=== PATIENT | female | born 1970 | race Caucasian/White ===

== ENCOUNTER → 2019-12-03 11:26 | Outpatient (BNVA) | payer MEDICAID, SELFPAY | PROVIDERS: Family Provider Family Medicine; Visit Provider Family Medicine | DX: R61 Generalized hyperhidrosis (principal); R05 Cough; M54.9 Dorsalgia, unspecified; J32.9 Chronic sinusitis, unspecified | CPT/HCPCS: 80053; 85025; 85651; 86140 ==

== ENCOUNTER 2019-12-04 15:24 | Outpatient (CLI) | payer MEDICAID, SELFPAY ==
--- NOTE | 2019-12-04 15:56 | XR_ITS ---
WS: [id number] CHEST, 1 view. HISTORY: hemoptysis COMPARISON: 05/23/2017 Lungs are clear and well expanded. No pleural effusion or pneumothorax. Cardiac size: Normal. Mediastinum/Aorta: Normal mediastinum. No osseous abnormality seen. XR/XR chest 1V [id number] IMPRESSION: Unremarkable chest.
== END 2019-12-04 15:25 | disposition home or self-care (01) ==
LOC: RADWPI 15:26
PROVIDERS: Family Provider Family Medicine; PCP Family Medicine; Visit Provider Family Medicine
DX: R04.2 Hemoptysis (principal)
CPT/HCPCS: 71045

== ENCOUNTER 2019-12-08 00:21 | Emergency (ER) | payer MEDICAID, SELFPAY ==
[2019-12-08] VITALS (21 sets, daily range): BP systolic 141; BP diastolic 92; PULSE 63; RESP 16; TEMP 36.4; O2SAT 94–99; BMI 27.8
--- NOTE | 2019-12-08 00:50 | PC.NURSE ---
Introduced self to patient and initiated vital signs. Patient presents A&O x 4. NAD, ABCs intact, MAEW and agreeable to treatment. Respirations are even and unlabored. Pt states medications taken before coming to ER was nitroglycerine. Pt states that the chief complaint for the ER visit today is due to chest pain and pressure. Pt took 1 nitro pill earlier with 1 hour of relief. Pt has 2 stents and history of cardiac issues. Pt denies any vision disturbances or lightheadedness. Bed left in lowest position in semi-fowlers with side rails up. Reassured patient of needs and will continue to monitor. Awaiting provider at bedside.
--- NOTE | 2019-12-08 00:58 | XRR_ITS ---
PROCEDURE INFORMATION: Exam: XR Chest, 1 View Exam date and time: 12/08/2019 12:59 AM Age: 49 years old Clinical indication: Chest pain; Patient HX: C/O central cp radiating to lue TECHNIQUE: Imaging protocol: XR of the chest Views: 1 view. COMPARISON: DC XR chest 1V [id number] 12/04/2019 4:02 PM FINDINGS: Lungs: Lungs are clear bilaterally. Pleural space: No pleural effusion. No pneumothorax. Heart/Mediastinum: Stable moderate enlargement of the cardiac silhouette. Mediastinal contours are unremarkable. Bones/joints: Stable changes consistent with previous cervical spine fusion. XR/XR chest 1V portable [id number] IMPRESSION: 1. No acute cardiopulmonary process. 2. Incidental/nonacute findings are listed in the report.
--- NOTE | 2019-12-08 00:59 | ED_ITS ---
HPI - Chest Pain General: Chief Complaint: Chest Pain Stated Complaint: CP Time Seen by Provider: 12/08/19 00:55 History of Present Illness: HPI narrative: Patient states that today she took a bath and laid down in bed and just a few minutes later she had pain in the center of her chest rating up into her neck and down her left arm. She took a nitro has not really had any relief from that. She said also hurts worse when she takes a deep breath. But the pain is constant. Denies any shortness of breath does have a cough today. has a history of 2 stents. MD complaint: chest pain and chest discomfort Pertinent past history: coronary artery disease Onset (ago): hour(s) Timing of current episode: constant Prior episodes: Yes Onset: during rest Pain location: left chest Pain radiation: left arm and neck Severity: moderate Quality: tightness, aching and sharp Relieving factors: nothing Exacerbating factors: nothing Associated symptoms: Reports no associated symptoms; Deny abdominal pain, dyspnea, fever(s), nausea or vomiting Review of Systems Const: Denies: fever, chills or body aches Eyes: Denies: change in vision or blurry vision ENMT: Denies: throat pain or nasal congestion Card: Reports: chest pain; Denies: shortness of breath on exertion Resp: Reports: non-productive cough; Denies: shortness of breath or productive cough GI: Denies: abdominal pain, nausea or vomiting Musc: Denies: extremity pain Skin/Breast: Denies: rash Neuro: Denies: headache Psych: Denies: anxiety or depression Kayode/Lymph: Denies: easy bruising PFSH ED PFSH: Social History Smoking and tobacco status: current every day smoker Alcohol intake: current Alcohol intake frequency: few times a month Female Reproductive History: Date of last menstrual period: 08/24/19 Physical Exam Const: COMMON NORMALS: no apparent distress, average body habitus and oriented x3 HENMT: COMMON NORMALS: normocephalic HEAD & SCALP: normal to inspection and normocephalic FACE & SINUS: normal facial exam Eye: COMMON NORMALS: conjunctivae normal GENERAL EYE: normal appearance of both eyes CONJUNCTIVA: Yes conjunctivae normal Neck/C-Spine: COMMON NORMALS: no JVD Chest: COMMONS NORMALS: inspection of chest normal CHEST: Yes localized rib tenderness with anteroposterior compression Resp: COMMON NORMALS: normal respiratory effort and clear to auscultation bilaterally AUSCULTATION: clear to auscultation bilaterally Cardio: COMMON NORMALS: no JVD, regular rate and regular rhythm RATE: regular rate RHYTHM: regular rhythm GI: COMMON NORMALS: normal to inspection, nondistended, normoactive bowel sounds Extremity: COMMON NORMALS: normal to inspection and full ROM Neuro: COMMON NORMALS: oriented x3 Course Vital Signs: Vital signs: Vital Signs Temperature 97.6 F 12/08/19 00:34 Pulse Rate 63 12/08/19 00:34 Respiratory Rate 16 12/08/19 00:34 Blood Pressure 141/92 12/08/19 00:34 Pulse Oximetry 98 12/08/19 00:34 MDM - Chest Pain MDM Narrative: Medical decision making narrative: Heart score 3 which shows risk of Mace of 0.9 to 1.7%. I discussed case with Dr. Ferrer areas of patient is not wanting to stay for the test troponins 2 hours with a heart score be in what it is with her past history that she is good to go home. Patient is been made aware what the 2-hour troponin test helps us decide patient says that the Toradol shot has helped she feels better now no longer has pain and does want to go home does not want to stay for another test and wait on the results. Patient was informed that if chest pain returns or worsens she is to call ambulance or return here ANA M. Lab Data: Labs: Lab Results 12/08/19 12/08/19 12/08/19 Range/Units 00:58 00:58 00:58 WBC 9.5 (4.0-10.0) 10^3/ uL RBC 4.68 (4.1-5.3) 10^6/u L Hgb 13.6 (11.5-15.3) g/dL Hct 41.9 (37.0-47.0) % MCV 89.5 (81-99) fL MCH 29.1 (28.0-34.0) pg MCHC 32.5 (30.0-36.0) g/dL RDW 14.5 (12.1-15.1) % Plt Count 316 (130-400) 10^3/c mm MPV 9.7 (7.4-10.4) fL Neut % (Auto) 55.9 % Lymph % (Auto) 35.4 % [place] % (Auto) 6.3 % Eos % (Auto) 1.3 % Baso % (Auto) 0.7 % Neut # (Auto) 5.3 (1.8-7.7) 10^3/u L Lymph # (Auto) 3.4 (0.8-4.8) 10^3/u L [place] # (Auto) 0.6 (0.2-0.9) 10^3/u L Eos # (Auto) 0.1 (0.0-0.8) 10^3/u L Baso # (Auto) 0.1 (0.0-0.1) 10^3/u L Nucleated RBC % (a uto) 0 % Nucleated RBCs # 0.0 /100WBC Sodium 144 (136-145) mmol/L Potassium 3.7 (3.5-5.1) mmol/L Chloride 104 (98-107) mmol/L Carbon Dioxide 31 H (22-29) mmol/L Anion Gap 12.7 (5-19) BUN 18 (6-20) mg/dL Creatinine 0.7 (0.5-0.9) mg/dL GFR Calculation 88.2 L (90-130) mL/min Glucose 110 (65-115) mg/dL Calculated Osmolal ity 295 (285-295) mOsm/k g Calcium 9.8 (8.5-10.5) mg/dL Total Bilirubin 0.2 (0.15-1.2) mg/dL AST 30 (0-32) U/L ALT 34 H (0-33) U/L Alkaline Phosphata se 262 H (35-105) IU/L Troponin T Baselin e 6 (0-10) ng/mL Total Protein 6.6 (6.6-8.7) g/dL Albumin 4.1 (3.5-5.2) g/dL Globulin 2.5 (1.3-4.6) g/dL Discharge Plan Discharge Prescriptions: No Action paroxetine HCl [Paxil] 20 mg tablet 20 mg PO .QHS RF: 0 hydroxyzine HCl 25 mg tablet 25 mg PO TID PRNRF: 0 metoclopramide HCl [Reglan] 5 mg tablet 5 mg PO TID PRN (Reason: nausea and vomiting) RF: 0 metoprolol succinate 50 mg tablet extended release 24 hr 50 mg PO DAILY RF: 0 hydrocodone-acetaminophen 10-325 mg tablet 1 tab PO Q6H PRNRF: 0 coenzyme Q10 100 mg capsule 100 mg PO DAILY RF: 0 omeprazole 40 mg capsule,delayed release(DR/EC) 40 mg PO BID RF: 0 nitroglycerin 0.4 mg tablet, sublingual 0.4 mg SUBLINGUAL Q5M PRNRF: 0 lamotrigine [Lamictal] 100 mg tablet 100 mg PO BID RF: 0 montelukast [Singulair] 10 mg tablet 10 mg PO DAILY RF: 0 amlodipine 2.5 mg tablet 2.5 mg PO DAILY RF: 0 lisinopril 10 mg tablet 10 mg PO DAILY RF: 0 topiramate [Topamax] 100 mg tablet 100 mg PO BID RF: 0 baclofen 10 mg tablet 10 mg PO TID RF: 0 doxycycline hyclate 100 mg capsule 100 mg PO BID 7 Days Qty: 14 RF: 0 levocetirizine [Xyzal] 5 mg tablet 5 mg PO DAILY 30 Days Qty: 30 RF: 0 clopidogrel [Plavix] 75 mg tablet 75 mg PO DAILY Qty: 30 RF: 3 pantoprazole 40 mg tablet,delayed release (DR/EC) 40 mg PO DAILY 30 Days Qty: 30 RF: 3 isosorbide mononitrate 60 mg tablet extended release 24 hr 60 mg PO BID Qty: 60 RF: 3 Coding Level of Care Code ED Gang Saw Operator for Chg Fwd Exam Comprehensive
[2019-12-08 01:21] LABS: Basophils # 0.1 10^3/uL (0.0-0.1); Basophils % 0.7 %; Eosinophils # 0.1 10^3/uL (0.0-0.8); Eosinophils % 1.3 %; Hematocrit 41.9 % (37.0-47.0); Hemoglobin 13.6 g/dL (11.5-15.3); Lymphocytes # 3.4 10^3/uL (0.8-4.8); Lymphocytes % 35.4 %; Mean Corpuscular HGB Conc 32.5 g/dL (30.0-36.0); Mean Corpuscular Hemoglobin 29.1 pg (28.0-34.0); Mean Corpuscular Volume 89.5 fL (81-99); Mean Platelet Volume 9.7 fL (7.4-10.4); Monocytes # 0.6 10^3/uL (0.2-0.9); Monocytes % 6.3 %; Neutrophils # 5.3 10^3/uL (1.8-7.7); Neutrophils % 55.9 %; Nucleated Red Blood Cells % 0 %; Platelet Count 316 10^3/cmm (130-400); Red Blood Count 4.68 10^6/uL (4.1-5.3); Red Cell Distribution Width 14.5 % (12.1-15.1); White Blood Count 9.5 10^3/uL (4.0-10.0)
[2019-12-08] MEDS: lidocaine 2% viscous 15 ML, aluminum-mag hydrox-simethicon 30 ML, sucralfate oral liq 1 GM PO (01:26)
[2019-12-08 01:34] LABS: Alanine Aminotransferase 34 U/L (0-33); Albumin Level 4.1 g/dL (3.5-5.2); Alkaline Phosphatase 262 IU/L (35-105); Anion Gap 12.7 (5-19); Aspartate Amino Transferase 30 U/L (0-32); Blood Urea Nitrogen 18 mg/dL (6-20); Calcium 9.8 mg/dL (8.5-10.5); Carbon Dioxide 31 mmol/L (22-29); Chloride 104 mmol/L (98-107); Globulin 2.5 g/dL (1.3-4.6); Glomerular Filtration Rate 88.2 mL/min (90-130); Glucose 110 mg/dL (65-115); Osmolality Calculated 295 mOsm/kg (285-295); Potassium 3.7 mmol/L (3.5-5.1); Sodium 144 mmol/L (136-145); Total Bilirubin 0.2 mg/dL (0.15-1.2); Total Protein 6.6 g/dL (6.6-8.7)
[2019-12-08 01:37] LABS: Troponin(5th) Baseline 6 ng/mL (0-10)
[2019-12-08] MEDS: ondansetron 2 mg/ML SDV 2 mL 4 MG IVP (02:11)
[2019-12-08] MEDS: ketorolac 30 mg/mL INJ IVP (02:11)
== END 2019-12-08 02:48 | disposition home or self-care (01) ==
PROVIDERS: Emergency Provider Nurse Practitioner Family; Family Provider Family Medicine; PCP Family Medicine
DX: R07.9 Chest pain, unspecified (principal); M79.602 Pain in left arm; M54.2 Cervicalgia; I25.10 Atherosclerotic heart disease of native coronary artery without angina pectoris; F17.200 Nicotine dependence, unspecified, uncomplicated; Z95.5 Presence of coronary angioplasty implant and graft
CPT/HCPCS: 12345; 71045; 80053; 84484; 85025; 96374; 96375; 99283; 99284; J1885; J2405

== ENCOUNTER → 2020-01-06 11:09 | Outpatient (BNVA) | payer MEDICAID, SELFPAY | PROVIDERS: Family Provider Family Medicine; PCP Family Medicine; Visit Provider Counselor Professional | DX: F43.12 Post-traumatic stress disorder, chronic (principal) | CPT/HCPCS: 90834 ==

== ENCOUNTER → 2020-01-07 08:27 | Outpatient (BNVA) | payer MEDICAID, SELFPAY | PROVIDERS: Family Provider Family Medicine; PCP Family Medicine; Visit Provider Nurse Practitioner | DX: F43.12 Post-traumatic stress disorder, chronic (principal) | CPT/HCPCS: 99214 ==

== ENCOUNTER → 2020-01-16 08:45 | Outpatient (BNVA) | payer MEDICAID, SELFPAY | PROVIDERS: Family Provider Family Medicine; PCP Family Medicine; Visit Provider Counselor Professional | DX: F43.12 Post-traumatic stress disorder, chronic (principal) | CPT/HCPCS: 90832 ==

== ENCOUNTER → 2020-01-22 08:25 | Outpatient (BNVA) | payer MEDICAID, SELFPAY | PROVIDERS: Family Provider Family Medicine; PCP Family Medicine; Visit Provider Counselor Professional | DX: F43.12 Post-traumatic stress disorder, chronic (principal) | CPT/HCPCS: 90834 ==

== ENCOUNTER → 2020-01-30 08:53 | Outpatient (BNVA) | payer MEDICAID, SELFPAY | PROVIDERS: Family Provider Family Medicine; PCP Family Medicine; Visit Provider Counselor Professional | DX: F43.12 Post-traumatic stress disorder, chronic (principal) | CPT/HCPCS: 90834 ==

== ENCOUNTER → 2020-02-21 07:58 | Outpatient (BNVA) | payer MEDICAID, SELFPAY | PROVIDERS: Family Provider Family Medicine; Visit Provider Counselor Professional | DX: F43.12 Post-traumatic stress disorder, chronic (principal) | CPT/HCPCS: 90834 ==

== ENCOUNTER → 2020-02-25 15:22 | Outpatient (BNVA) | payer MEDICAID, SELFPAY | PROVIDERS: Family Provider Family Medicine; PCP Family Medicine; Visit Provider Internal Medicine Cardiovascular Disease | DX: D69.9 Hemorrhagic condition, unspecified (principal) | CPT/HCPCS: 85025 ==

== ENCOUNTER → 2020-03-03 08:29 | Outpatient (BNVA) | payer MEDICAID, SELFPAY | PROVIDERS: Family Provider Family Medicine; PCP Family Medicine; Visit Provider Counselor Professional | DX: F43.12 Post-traumatic stress disorder, chronic (principal) | CPT/HCPCS: 90834 ==

== ENCOUNTER → 2020-03-04 08:02 | Outpatient (BNVA) | payer MEDICAID, SELFPAY | PROVIDERS: Family Provider Family Medicine; PCP Family Medicine; Visit Provider Nurse Practitioner | DX: Z12.4 Encounter for screening for malignant neoplasm of cervix | CPT/HCPCS: 88175 ==

== ENCOUNTER → 2020-03-17 08:17 | Outpatient (BNVA) | payer MEDICAID, SELFPAY | PROVIDERS: Family Provider Family Medicine; PCP Family Medicine; Visit Provider Counselor Professional | DX: F43.12 Post-traumatic stress disorder, chronic (principal) | CPT/HCPCS: 90834; 81025 ==

== ENCOUNTER → 2020-03-18 07:35 | Outpatient (BNVA) | payer MEDICAID, SELFPAY | PROVIDERS: Family Provider Family Medicine; PCP Family Medicine; Visit Provider Nurse Practitioner | DX: F43.12 Post-traumatic stress disorder, chronic (principal) | CPT/HCPCS: 88305; 99213 ==

== ENCOUNTER → 2020-03-24 08:59 | Outpatient (BNVA) | payer MEDICAID, SELFPAY | PROVIDERS: Family Provider Family Medicine; PCP Family Medicine; Visit Provider Obstetrics & Gynecology | DX: N87.1 Moderate cervical dysplasia (principal) | CPT/HCPCS: 76830 ==

== ENCOUNTER → 2020-04-01 08:45 | Outpatient (BNVA) | payer MEDICAID, SELFPAY | PROVIDERS: Family Provider Family Medicine; PCP Family Medicine; Visit Provider Counselor Professional | DX: F43.12 Post-traumatic stress disorder, chronic (principal) | CPT/HCPCS: 90832 ==

== ENCOUNTER → 2020-04-20 08:13 | Outpatient (BNVA) | payer MEDICAID, SELFPAY | PROVIDERS: Family Provider Family Medicine; PCP Family Medicine; Visit Provider Counselor Professional | DX: F43.12 Post-traumatic stress disorder, chronic (principal) | CPT/HCPCS: 90834 ==

== ENCOUNTER 2020-04-23 07:22 | Day surgery (SDC) | payer MEDICAID, SELFPAY ==
[2020-04-21 10:07] VITALS: BMI 27.3
--- NOTE | 2020-04-21 10:12 | ECG_ITS ---
[facility] Test Date: 2020-04-21 Pat Name: Alex Malhotra Department: Room: Gender: Female Dinkey Dispatcher: : [id number] Requested By: Alessandro Serrano Order Number: [id number] Joshua MD: Michael Kumari M.D. Measurements Intervals [place] Rate: 57 P: 66 UT: 167 QRS: -16 QRSD: 96 T: 35 QT: 397 QTc: 389 Interpretive Statements SINUS BRADYCARDIA MINIMAL VOLTAGE CRITERIA FOR LVH, CONSIDER NORMAL VARIANT [MEETS CRITERIA IN ONE OF: R(aVL), S(V1), R(V5), R(V5/V6)+S(V1)] POSSIBLE ANTERIOR MYOCARDIAL INFARCTION [30 ms Q WAVE IN V3/V4, OR R < 0.2 mV IN V4], PROBABLY OLD INFERIOR MYOCARDIAL INFARCTION [40+ ms Q WAVE AND/OR ST/T ABNORMALITY IN II/aVF], PROBABLY OLD Compared to ECG 08/07/2017 09:56:14 Sinus rhythm no longer present Myocardial infarct finding still present Electronically Signed On 04-21-2020 20:46:00 CDT by Michael Kumari M.D. [id number]
--- NOTE | 2020-04-21 10:52 | ANES.PREANE2 ---
Pre-Anesthetic Assessment Pre-Anesthetic Assessment: Height/Weight: Height 1.7 m Weight 79.379 kg Proposed Procedure: Operation Date: 04/23/20 09:05 Proposed Procedures p Hysteroscopy 73820 38428 78142 N87.1 Z86.010(Not Applicable) - Alessandro Serrano MD s Loop Electrosurgical Excision Procedure(Not Applicable) - Alessandro Serrano MD s Colonoscopy(Not Applicable) - Bird Vaughn MD Familial anesthetic complications: None Social: Social History: Tobacco and No alcohol Exam: Pre-Anes Outpt Exam: alert, oriented x 3, clear to auscultation bilaterally and regular rate & rhythm Airway: Cervical ROM: Other (Plates in neck) MP: 2 Dentition: Other (missing) Pulmonary: Pulmonary: COPD CV/HEM: CV/HEM: Angina (Stable) (on isosorbide, hasn't needed nitro in 4 wks), CAD (2 stents last placed jul 2017 (on plavix and aspirin)), HTN and ID (2017) GI: GI: GERD Metabolic: Comments: Lupus Musc/skel: Musc/skel: OA/DJD Neuropsych: Neuropsych: None reported Anesthetic Plan: ASA status: 3 Anesthesia: MAC Risk of > 500 ml blood loss (7ml/kg in children): No PFSH Anesthesia PFSH: Medical History CAD (coronary artery disease) Currently on Plavix after [place] st[place] [address] Kumari Colon polyps Needs colonoscopy in 2019 Essential hypertension Diagnosed in her early 40s and controlled on medications managed by cardiology-Dr. Kumari Neck pain No pertinent past medical history Denies: Diabetes, thyroid problems, liver, lung, kidney disorders, bleeding/clotting disorders, DVT/PE. PCP: Dr. Kruger Opioid-induced hyperalgesia Post-traumatic stress disorder, chronic Surgical History History of back surgery Hx of right coronary artery stent placement 2017 [place] [facility] [place]P chole[place]ectomy Open procedure performed in 1989 at [facility] [place] Menon Family History Grandfather Heart disease maternal and paternal Suicide paternal Grandmother Heart disease maternal and paternal Family/Other Heart disease maternal and paternal uncles Lung cancer maternal uncle Thyroid condition niece Mother Diabetes Hypertension Hyperlipidemia Sister Hypertension Thyroid condition Suicide Father Suicide Other Stroke Denies family history of Cervical cancer Colon cancer Ovarian cancer Breast cancer Anesthesia complication Bleeding disorder Pulmonary embolism Social History Smoking and tobacco status: current every day smoker Alcohol intake: current Alcohol intake frequency: few times a month History of recent travel: No Additional social history: - Tobacco Use: Started smoking at age 14 and has smoked 1 pack per day since then. Is working with her primary care provider to cut down cigarette use and is down to half a pack of cigarettes a day at this time. Drug Use: Denies Alcohol Use: Occasional alcohol use Work/Study Status: Unemployed, not looking for work. Trying to get disabilty for chronic pain. Female Reproductive History: Date of last menstrual period: 08/21/19 Data Anesthesia Cardiac Studies: No Data to Display
[2020-04-23 07:34] VITALS: BP 125/90; PULSE 57; RESP 16; TEMP 36.4; O2SAT 99
[2020-04-23] MEDS: sodium chloride 0.9% 1,000 ML 30 ML IV (08:18)
[2020-04-23 08:22] LABS: Basophils # 0.1 10^3/uL (0.0-0.1); Basophils % 0.8 %; Eosinophils % 0.6 %; Hematocrit 43.9 % (37.0-47.0); Lymphocytes % 30.2 %; Mean Corpuscular HGB Conc 31.9 g/dL (30.0-36.0); Mean Corpuscular Hemoglobin 28.7 pg (28.0-34.0); Mean Corpuscular Volume 90.1 fL (81-99); Mean Platelet Volume 9.9 fL (7.4-10.4); Monocytes # 0.5 10^3/uL (0.2-0.9); Monocytes % 7.4 %; Neutrophils # 3.99 10^3/uL (1.8-7.7); Neutrophils % 60.7 %; Nucleated Red Blood Cells % 0 %; Platelet Count 262 10^3/cmm (130-400); Red Blood Count 4.87 10^6/uL (4.1-5.3); Red Cell Distribution Width 14.4 % (12.1-15.1); White Blood Count 6.6 10^3/uL (4.0-10.0)
--- NOTE | 2020-04-23 08:36 | P.ANESUD_ITS ---
Pre-Anesthetic Update Pre-Anesthetic Assessment: Date of Surgery/Procedure: 04/23/20 Preop Margarita gnosis: ESVIN 2 Proposed Procedure: Operation Date: 04/23/20 09:05 Proposed Procedures p Hysteroscopy 28371 [id number] 22916 N87.1 Z86.010(Not Applicable) - Alessandro Fuentes MD s Loop Electrosurgical Excision Procedure(Not Applicable) - Alessandro Serrano MD s Colonoscopy(Not Applicable) - Bird Vaughn MD Any changes to Pre-Anesthetic Assessment?: No Changes from Pre-Anesthetic Assessment: no plavix since monday, no use of nitroglycerin since pre op Last Intake: Intake Last Liquid Date 04/22/20 Last Liquid Time 21:00 Last Solid Date 04/22/20 Last Solid Time 19:00 Labs Last 48hrs: Laboratory Results - last 48 hr 04/23/20 08:11 WBC 6.6 RBC 4.87 Hgb 14.0 Hct 43.9 MCV 90.1 MCH 28.7 MCHC 31.9 RDW 14.4 Plt Count 262 MPV 9.9 Neut % (Auto) 60.7 Lymph % (Auto) 30.2 [place] % (Auto) 7.4 Eos % (Auto) 0.6 Baso % (Auto) 0.8 Neut # (Auto) 3.99 Lymph # (Auto) 2.0 [place] # (Auto) 0.5 Eos # (Auto) 0.0 Baso # (Auto) 0.1 Nucleated RBC % (a uto) 0 Nucleated RBCs # 0.0 Vitals: Temperature 97.5 F L 04/23/20 07:34 Temperature Source Temporal Artery S can 04/23/20 07:34 Pulse Rate 57 L 04/23/20 07:34 Respiratory Rate 16 04/23/20 07:34 Blood Pressure 125/90 04/23/20 07:34 Blood Pressure Linda n 101 04/23/20 07:34 Pulse Oximetry 99 04/23/20 07:34 Oxygen Delivery Me thod 04/23/20 07:34 Exam: Pre-Anes Outpt Exam: alert, oriented x 3, clear to auscultation bilaterally and regular rate & rhythm Cardiac Studies: No Data to Display
--- NOTE | 2020-04-23 08:57 | W.PM.OPSUD ---
Surgery/Procedure H&P Update DATE OF PROCEDURE: April 23, 2020 DATE H&P PERFORMED: 03/24/20 H&P UPDATE INFORMATION: I have reviewed H&P completed within last 30 days, I have examined patient prior to procedure, No changes to prior documentation and H&P is in [facility] [place] EMR on date indicated PREOP DIAGNOSIS: ESVIN 2, AGC PLANNED PROCEDURE: Operation Date: 04/23/20 09:05 Proposed Procedures p Hysteroscopy 22201 15427 98286 N87.1 Z86.010(Not Applicable) - Alessandro Serrano MD s Loop Electrosurgical Excision Procedure(Not Applicable) - Alessandro Serrano MD s Colonoscopy(Not Applicable) - Bird Vaughn MD
[2020-04-23 09:00] LABS: HCG Quantitative 16.79 mIU/mL
--- NOTE | 2020-04-23 09:33 | SUR.PREOP ---
PATIENT SURGERY CANCELLED DUE TO POSITIVE HCG
--- NOTE | 2020-04-23 13:48 | P.HP_ITS ---
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 At present she denies any bleeding per rectum, change in bowel habits or weight loss. No family still colon cancer. 5 years ago she also had an EGD but does not remove the results. Presently she mainly complains of abdominal bloating with associated pain in the epigastric region and nausea worse after eating. She had her gallbladder out in the Review of Systems General: Reports: 10 or more systems reviewed and unremarkable except in HPI and below Medications/Allergies Home Medications Medication Instructions Recorded Confirmed Last Taken Type baclofen 10 mg tablet 10 mg PO TID 10/09/19 04/23/20 Unknown History coenzyme Q10 100 mg capsule 100 mg PO DAILY cap 10/09/19 04/23/20 Unknown History metoprolol succinate 50 mg 50 mg PO DAILY tab 10/09/19 04/23/20 04/22/20 10:00 History tablet,extended release 24 hr montelukast 10 mg tablet 10 mg PO DAILY tab 10/09/19 04/23/20 04/22/20 History clopidogrel 75 mg tablet 75 mg PO DAILY #90 tab 02/11/20 04/21/20 04/17/20 Rx nitroglycerin 0.4 mg sublingual 0.4 mg SUBLINGUAL Q5M PRN 03/04/20 04/21/20 Unknown History tablet aspirin 81 mg tablet,delayed 81 mg PO DAILY 03/17/20 04/23/20 04/22/20 History release hydroxyzine HCl 25 mg tablet 25 mg PO TID PRN #90 tab 03/18/20 04/23/20 Unknown Rx lamotrigine 100 mg tablet 100 mg PO BID #60 tab 03/18/20 04/23/20 04/22/20 Rx paroxetine HCl 20 mg tablet 20 mg PO .QHS #30 tab 03/18/20 04/23/20 04/22/20 Rx topiramate 100 mg tablet 100 mg PO BID #60 tab 03/18/20 04/23/20 04/22/20 Rx isosorbide mononitrate 60 mg 60 mg PO BID #60 tab 07/10/1404/23/20 04/22/20 Rx tablet,extended release 24 hr ranolazine 500 mg tablet,extended 500 mg PO DAILY #90 tab 04/03/20 04/23/20 04/22/20 Rx release,12 hr hydrocodone 5 mg-acetaminophen 325 1 tab PO Q8H PRN 30 Days #45 tab 04/08/20 04/21/20 Unknown Rx mg tablet pantoprazole 40 mg tablet,delayed 40 mg PO DAILY 30 Days #30 tab 04/08/2004/22/20 Rx release simethicone 125 mg capsule 125 mg PO TID PRN #60 cap 04/08/20 04/23/20 04/22/20 Rx lactulose 0.35 gm PO BID PRN 04/21/20 04/23/20 Unknown History Allergies Allergy/AdvReac Type Severity Reaction Status Date / Time Penicillins Allergy hives Verified 04/08/20 07:34 Sulfa (Sulfonamide Allergy Rash Verified 04/08/20 07:34 Antibiotics) PFSH Acute PFSH: Medical History CAD (coronary artery disease) Currently on Plavix after [place] [address] Kumari Colon polyps Needs colonoscopy in 2019 Essential hypertension Diagnosed in her early 40s and controlled on medications managed by cardiology-Dr. Kumari Neck pain No pertinent past medical history Denies: Diabetes, thyroid problems, liver, lung, kidney disorders, bleeding/clotting disorders, DVT/PE. PCP: Dr. Kruger Opioid-induced hyperalgesia Post-traumatic stress disorder, chronic Surgical History History of back surgery Hx of right coronary artery stent placement 2017 Dr Kumari at [facility] [place] [place]. S/P cholecystectomy Open procedure performed in 1989 at [facility] [place] [place] by Dr. Menon Family History Grandfather Heart disease maternal and paternal Suicide paternal Grandmother Heart disease maternal and paternal Family/Other Heart disease maternal and paternal uncles Lung cancer maternal uncle Thyroid condition niece Mother Diabetes Hypertension Hyperlipidemia Sister Hypertension Thyroid condition Suicide Father Suicide Other Stroke Denies family history of Cervical cancer Colon cancer Ovarian cancer Breast cancer Anesthesia complication Bleeding disorder Pulmonary embolism Social History Smoking and tobacco status: current every day smoker Alcohol intake: current Alcohol intake frequency: few times a month History of recent travel: No Additional social history: - Tobacco Use: Started smoking at age 14 and has smoked 1 pack per day since then. Is working with her primary care provider to cut down cigarette use and is down to half a pack of cigarettes a day at this time. Drug Use: Denies Alcohol Use: Occasional alcohol use Work/Study Status: Unemployed, not looking for work. Trying to get disabilty for chronic pain. Female Reproductive History: Date of last menstrual period: 08/24/19 Vitals/I&O/Wt Last Vital Signs Temp 97.5 F L 04/23/20 07:34 Pulse 57 L 04/23/20 07:34 Resp 16 04/23/20 07:34 BP 125/90 04/23/20 07:34 Pulse Ox 99 04/23/20 07:34 04/22/20 04/23/20 04/23/20 22:59 06:59 14:59 Intake Total 300 / 300 Balance 300 / 300 Physical Exam Narrative: EXAM NARRATIVE: HEENT: Normocephalic Eye: Sclera /conjunctiva normal Abdomen: Soft to palpation, mildly tender in the epigastric region Neurological: Oriented to place person and time Skin: Intact, no lesions appreciated on gross exam Data : 04/23/20 08:11 A&P Assessment and plan (1) Bloatin-year-old female with complaints of bloating, epigastric pain and nausea currently on Protonix. She is had a prior cholecystectomy. We will therefore advance her Protonix to 40 mg twice daily. Status: Acute (2) Colon polyps: Patient is due for colonoscopy today but her hCG was positive and th erefore will need to be retested before we can proceed with surgery. Status: Acute Attestations Medical Necessity Statement*: History of colon polyps Coding Level of Care Code Acute Chargeback Analyst for Mauricio Cota Diagnoses Bloating R14.0 Colon polyps K63.5
== END 2020-04-23 09:00 | disposition home or self-care (01) ==
PROVIDERS: Surgery; PCP Family Medicine; Visit Provider Obstetrics & Gynecology
PROC: 0UJD8ZZ Inspection of Uterus and Cervix, Via Natural or Artificial Opening Endoscopic (ICD-10-PCS; CPT 58555; principal; 2020-04-23 09:00)
PROC: 0UBC7ZZ Excision of Cervix, Via Natural or Artificial Opening (ICD-10-PCS; CPT 57522; 2020-04-23 09:00)
PROC: 0DJD8ZZ Inspection of Lower Intestinal Tract, Via Natural or Artificial Opening Endoscopic (ICD-10-PCS; CPT 45378; 2020-04-23 09:00)
DX: Z12.11 Encounter for screening for malignant neoplasm of colon (principal); I25.10 Atherosclerotic heart disease of native coronary artery without angina pectoris; Z79.02 Long term (current) use of antithrombotics/antiplatelets; Z95.5 Presence of coronary angioplasty implant and graft; I10 Essential (primary) hypertension; F17.210 Nicotine dependence, cigarettes, uncomplicated; Z86.010 Personal history of colon polyps; Z88.0 Allergy status to penicillin; Z88.2 Allergy status to sulfonamides; Z53.8 Procedure and treatment not carried out for other reasons
CPT/HCPCS: 12345; 36415; 81025; 84702; 85025; 86850; 86900; 93005; J7030

== ENCOUNTER 2020-04-30 08:00 | Outpatient (CLI) | payer MEDICAID, SELFPAY | END 2020-04-30 23:00 | disposition home or self-care (01) | LOC: RADSHAW 06-22 12:54 | PROVIDERS: Family Provider Family Medicine; PCP Family Medicine Adult Medicine; Visit Provider Obstetrics & Gynecology | DX: E34.9 Endocrine disorder, unspecified (principal) | CPT/HCPCS: 84702 ==

== ENCOUNTER → 2020-05-07 09:00 | Outpatient (BNVA) | payer MEDICAID, SELFPAY | PROVIDERS: PCP Family Medicine; Visit Provider Obstetrics & Gynecology | DX: E34.9 Endocrine disorder, unspecified (principal) | CPT/HCPCS: 84702 ==

== ENCOUNTER 2020-05-21 09:02 | Day surgery (SDC) | payer MEDICAID, SELFPAY ==
[2020-05-14 11:48] VITALS: BMI 27.7
--- NOTE | 2020-05-14 12:09 | ANES.PREANE2 ---
Pre-Anesthetic Assessment Pre-Anesthetic Assessment: Height/Weight: Height 1.7 m Weight 80.286 kg Preop Diagnosis: ESVIN 2, AGC Proposed Procedure: Operation Date: 05/21/20 11:15 Proposed Procedures p Hysteroscopy 41777 34892 09900 N87.1 Z86.010(Not Applicable) - Alessandro Serrano MD s Loop Electrosurgical Excision Procedure(Not Applicable) - Alessandro Serrano MD Familial anesthetic complications: None Social: Social History: Tobacco and No alcohol Exam: Pre-Anes Outpt Exam: alert, oriented x 3, clear to auscultation bilaterally and regular rate & rhythm Airway: Cervical ROM: Other (limited extension d/t plate in neck (cervical disc herniation) - ) MP: 2 Dentition: Other (missing) Pulmonary: Pulmonary: Sleep apnea CV/HEM: CV/HEM: CAD (stents (last one 3 years ago)- on blood thinners) and HTN : Comments: lupus GI: GI: GERD Musc/skel: Musc/skel: OA/DJD Comments: lupus neck pain Anesthetic Plan: ASA status: 3 Anesthesia: General Risk of > 500 ml blood loss (7ml/kg in children): No PFSH Anesthesia PFSH: Medical History CAD (coronary artery disease) Currently on Plavix after placement [place] st[place] [address] Kumari Colon polyps Needs colonoscopy in 2019 Essential hypertension Diagnosed in her early 40s and controlled on medications managed by cardiology-Dr. Kumari Neck pain Opioid-induced hyperalgesia Post-traumatic stress disorder, chronic Surgical History History of back surgery Hx of right coronary artery stent placement 2017 Dr Kumari at [facility] [place]. S/P cholecystectomy Open procedure performed in 1989 at [facility] [place] by Dr. Menon Family History Grandfather Heart disease maternal and paternal Suicide paternal Grandmother Heart disease maternal and paternal Family/Other Heart disease maternal and paternal uncles Lung cancer maternal uncle Thyroid condition niece Mother Diabetes Hypertension Hyperlipidemia Sister Hypertension Thyroid condition Suicide Father Suicide Other Stroke Denies family history of Cervical cancer Colon cancer Ovarian cancer Breast cancer Anesthesia complication Bleeding disorder Pulmonary embolism Social History (Updated 05/13/20 @ 08:09 by Oxana Wynne RN) Smoking and tobacco status: current every day smoker Alcohol intake: current Alcohol intake frequency: few times a month History of recent travel: No Female Reproductive History: Date of last menstrual period: 08/24/19 Data Anesthesia Cardiac Studies: No Data to Display
[2020-05-14 12:23] LABS: Basophils % 0.6 %; Eosinophils # 0.1 10^3/uL (0.0-0.8); Eosinophils % 1.2 %; Hematocrit 42.7 % (37.0-47.0); Hemoglobin 13.7 g/dL (11.5-15.3); Lymphocytes # 2.4 10^3/uL (0.8-4.8); Lymphocytes % 37.5 %; Mean Corpuscular HGB Conc 32.1 g/dL (30.0-36.0); Mean Corpuscular Hemoglobin 29.9 pg (28.0-34.0); Mean Corpuscular Volume 93.2 fL (81-99); Mean Platelet Volume 9.9 fL (7.4-10.4); Monocytes # 0.5 10^3/uL (0.2-0.9); Monocytes % 6.9 %; Neutrophils # 3.46 10^3/uL (1.8-7.7); Neutrophils % 53.5 %; Nucleated Red Blood Cells % 0 %; Platelet Count 231 10^3/cmm (130-400); Red Blood Count 4.58 10^6/uL (4.1-5.3); Red Cell Distribution Width 14.8 % (12.1-15.1); White Blood Count 6.5 10^3/uL (4.0-10.0)
[2020-05-21] VITALS (9 sets, daily range): BP systolic 108–152; BP diastolic 69–98; PULSE 63–83; RESP 14–20; TEMP 36.1–36.6; O2SAT 98–99
[2020-05-21] MEDS: sodium chloride 0.9% 1,000 ML 30 ML IV (09:47)
--- NOTE | 2020-05-21 10:45 | W.PM.OPSUD ---
Surgery/Procedure H&P Update DATE OF PROCEDURE: May 21, 2020 DATE H&P PERFORMED: 04/23/20 H&P UPDATE INFORMATION: I have reviewed H&P completed within last 30 days, I have examined patient prior to procedure and No changes to prior documentation PREOP DIAGNOSIS: ESVIN 2 PLANNED PROCEDURE: Operation Date: 05/21/20 10:40 Proposed Procedures p Hysteroscopy 18755 18185 56875 N87.1 Z86.010(Not Applicable) - Alessandro Serrano MD s Loop Electrosurgical Excision Procedure(Not Applicable) - Alessandro Serrano MD s EGD [id number] 68650 K63.5 R14.0(Not Applicable) - Bird Vaughn MD s Colonoscopy(Not Applicable) - Bird Vaughn MD
--- NOTE | 2020-05-21 10:56 | P.ANESUD_ITS ---
Pre-Anesthetic Update Pre-Anesthetic Assessment: Date of Surgery/Procedure: 05/21/20 Preop Margarita gnosis: ESVIN 2 Proposed Procedure: Operation Date: 05/21/20 10:40 Proposed Procedures p Hysteroscopy 95014 64099 86310 N87.1 Z86.010(Not Applicable) - Alessandro Fuentes MD s Loop Electrosurgical Excision Procedure(Not Applicable) - Alessandro Serrano MD s EGD 84686 73194 K63.5 R14.0(Not Applicable) - Bird Vaughn MD s Colonoscopy(Not Applicable) - Bird Vaughn MD Any changes to Pre-Anesthetic Assessment?: No Last Intake: Intake Last Liquid Date 05/20/20 Last Liquid Time 20:00 Last Solid Date 05/20/20 Last Solid Time 20:00 Vitals: Temperature 97.8 F 05/21/20 09:27 Pulse Rate 72 05/21/20 09:27 Pulse Rhythm 05/21/20 09:30 Pulse Strength 3+ Normal 05/21/20 09:30 Respiratory Rate 18 05/21/20 09:27 Blood Pressure 120/89 05/21/20 09:27 Blood Pressure Linda n 99 05/21/20 09:27 Pulse Oximetry 98 05/21/20 09:27 Oxygen Delivery Me thod 05/21/20 09:30 Exam: Pre-Anes Outpt Exam: alert, oriented x 3, clear to auscultation b ilaterally and regular rate & rhythm Other Pertinent Information: Other Pertinent Information: plavix 6 days ago, metoprolol last night Cardiac Studies: No Data to Display
--- NOTE | 2020-05-21 12:58 | W.PM.OPSUD ---
Surgery/Procedure H&P Update DATE OF PROCEDURE: May 21, 2020 DATE H&P PERFORMED: 04/23/20 H&P UPDATE INFORMATION: I have reviewed H&P completed within last 30 days, I have examined patient prior to procedure, No changes to prior documentation and H&P is in [facility] on date indicated PREOP DIAGNOSIS: ESVIN 2, MARTINEZ PLANNED PROCEDURE: Operation Date: 05/21/20 10:40 Proposed Procedures p Hysteroscopy 98792 34116 36721 N87.1 Z86.010(Not Applicable) - Alessandro Serrano MD s Loop Electrosurgical Excision Procedure(Not Applicable) - Alessandro Serrano MD s EGD 20186 68206 K63.5 R14.0(Not Applicable) - Bird Vaughn MD s Colonoscopy(Not Applicable) - Bird Vaughn MD
--- NOTE | 2020-05-21 14:12 | P.OP_ITS ---
Operative Report Date of procedure: May 21, 2020 OPERATIVE REPORT Date of surgery: 05/21/2020 Date of dictation: 05/21/2020 Preoperative diagnosis: ESVIN-2, MARTINEZ Postoperative diagnosis/findings: Grade 2 cystocele, grade 1 uterine descent, minimal rectocele, 6-week size anteverted uterus, no adnexal masses, thin atrophic endometrium, bilateral ostia visualized, no lesions in the endocervical or endometrial cavity. Procedure done: Hysteroscopy, D&C, LEEP Specimens removed/disposition of specimens: Endometrial curettings, LEEP s pecimen tagged at 12:00, post LEEP ECC, posterior lip of cervix tagged at 6:00. Surgeon: Dr. Alessandro Love preschool assistant teacher: Leeann Anesthesia: General endotracheal tube anesthesia Estimated blood loss: Less than 25 ml Intravenous fluids: 400 mL of LR Urine output: Less than 10 mL of clear urine via straight catheter prior to start of procedure Medications: As per anesthesia records Complications: None, patient was left on the operating room table for Dr. Vaughn to perform EGD and colonoscopy-please see his operative report for details of that procedure. PROCEDURE: After informed consent was obtained patient was taken to the operating room where she was placed under general endotracheal tube anesthesia without any difficulty. She was placed supine on the table in lithotomy position. Care was taken to ensure that her legs were well positioned to avoid pressure points. She was then prepped and draped in the usual sterile fashion. Exam under anesthesia was done at this time which showed a 6-week size anteverted uterus without any adnexal masses. The weighted speculum and lateral vaginal wall retractors were placed in the vagina and the cervix was visualized. The cervix appeared normal. The cervix was dilated to a 16 Alberto Márquez dilator. This allowed placement of a 3 mm hysteroscope into the uterine cavity without any difficulty. Once the hysteroscope was placed in the uterine cavity, the endocervical canal was visualized and appeared normal .the uterine cavity was visualized and bilateral ostia visualized and no lesions are abnormalities noted in the endometrial cavity. The hysteroscope was withdrawn and a sharp curette was used to obtain endometrial curettings..The endometrial curettings were sent to pathology. No active bleeding was noted from the cervix. Acetic acid and Lugol's were placed over the cervix and a dense area of acetowhite lesion which corresponded to areas of decreased Lugol's uptake was noted circumferentially around the external os densest from about 10-12 o'clock and from 4-6 o'clock. Remainder of the cervix appeared normal, no additional changes noted with Lugol's iodine placement. Stay sutures were placed at 3:00 and 9:00 to help with hemostasis. Using a loop electrode LEEP procedure was done--this encompassed the anterior cervix, transformation zone and part of the posterior cervical lip---it was tagged at 12:00. Once this was done endocervical curettage was performed both with a curet and Cytobrush and the specimens were sent to pathology. On examination of the LEEP specimen it was noted to be more anterior lip than the posterior lip and a second pass was made on the posterior lip of the cervix and this was tagged at 6:00 and sent to pathology separately. Using the rollerball cautery was obtained over the cervix. Good hemostasis was achieved. Monsel's was used as well as silver nitrate over this area. Good hemostasis noted. All instruments and taken of is and patient was turned over to Dr. 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 Kumari Colon polyps Needs colonoscopy in 2019 Essential hypertension Diagnosed in her early 40s and controlled on medications managed by cardiology-Dr. Kumari Neck pain Opioid-induced hyperalgesia Post-traumatic stress disorder, chronic Surgical History (Updated 05/21/20 @ 14:22 by Alessandro Serrano MD) History of back surgery Hx of right coronary artery stent placement 2017 Dr Kumari [place] [facility] [place] S/P cholecystectomy Open procedure performed in 1989 at [facility] [place]. Menon Status post hysteroscopy 05/21/2020--hysteroscopy D&C performed at [facility] [place] by Dr. Love for MARTINEZ-pathology pending Status post LEEP (loop electrosurgical excision procedure) of cervix 05/21/2020---LEEP procedure performed at time of hysteroscopy for ESVIN-[address] Love at [facility] [place]. Pathology pending Family History Grandfather Heart disease maternal and paternal Suicide paternal Grandmother Heart disease maternal and paternal Family/Other Heart disease maternal and paternal uncles Lung cancer maternal uncle Thyroid condition niece Mother Diabetes Hypertension Hyperlipidemia Sister Hypertension Thyroid condition Suicide Father Suicide Other Stroke Denies family history of Cervical cancer Colon cancer Ovarian cancer Breast cancer Anesthesia complication Bleeding disorder Pulmonary embolism Social History Smoking and tobacco status: current every day smoker Alcohol intake: current Alcohol intake frequency: few times a month History of recent travel: No
--- NOTE | 2020-05-21 14:13 | SUR.OPER ---
lugolis and monsels used. applied to cervix by dr turner.
--- NOTE | 2020-05-21 14:40 | SUR.PHASEI ---
1438 PATIENT TO PACU FROM OR. RR EVEN AND UNLABORED. SPO2 100% ON RA. DENIES PAIN.
[2020-05-21] MEDS: fentaNYL 50 mcg/mL INJ 2mL IVP (14:49)
--- NOTE | 2020-05-21 15:03 | SUR.PHASEI ---
1501 PATIENT TO OPS FROM PACU. PAIN IMPROVED. RR EVEN AND UNLABORED.
[2020-05-21] MEDS: HYDROcodone-acetaminophen 5-325 mg Tablet 1 TAB PO (15:25)
== END 2020-05-21 15:45 | disposition home or self-care (01) ==
PROVIDERS: Anesthesiology; Surgery; PCP Family Medicine; Visit Provider Obstetrics & Gynecology
PROC: 0UJD8ZZ Inspection of Uterus and Cervix, Via Natural or Artificial Opening Endoscopic (ICD-10-PCS; CPT 58555; principal; 2020-05-21 10:40)
PROC: 0UBC7ZZ Excision of Cervix, Via Natural or Artificial Opening (ICD-10-PCS; CPT 57522; 2020-05-21 10:40)
PROC: 0DJ08ZZ Inspection of Upper Intestinal Tract, Via Natural or Artificial Opening Endoscopic (ICD-10-PCS; CPT 43235; 2020-05-21 10:40)
PROC: 0DJD8ZZ Inspection of Lower Intestinal Tract, Via Natural or Artificial Opening Endoscopic (ICD-10-PCS; CPT 45378; 2020-05-21 10:40)
DX: Z12.11 Encounter for screening for malignant neoplasm of colon (principal); D12.4 Benign neoplasm of descending colon; K29.50 Unspecified chronic gastritis without bleeding; K21.9 Gastro-esophageal reflux disease without esophagitis; N81.10 Cystocele, unspecified; N87.1 Moderate cervical dysplasia; I25.10 Atherosclerotic heart disease of native coronary artery without angina pectoris; I10 Essential (primary) hypertension; F17.200 Nicotine dependence, unspecified, uncomplicated; Z79.82 Long term (current) use of aspirin; Z86.010 Personal history of colon polyps; Z88.0 Allergy status to penicillin; Z88.2 Allergy status to sulfonamides; Z95.5 Presence of coronary angioplasty implant and graft; Z90.49 Acquired absence of other specified parts of digestive tract
CPT/HCPCS: 57522; 58555; 12345; 36415; 43239; 45380; 85025; 86850; 86900; 88305; 88307; J1100; J2405; J2704; J3010; J7030

== ENCOUNTER → 2020-05-22 08:43 | Outpatient (BNVA) | payer MEDICAID, SELFPAY | PROVIDERS: PCP Family Medicine; Visit Provider Counselor Professional | DX: F43.12 Post-traumatic stress disorder, chronic (principal) | CPT/HCPCS: 90834 ==

== ENCOUNTER 2020-06-03 21:15 | Emergency (ER) | payer MEDICAID, SELFPAY ==
[2020-06-03 21:22] VITALS: BP 162/88; PULSE 60; RESP 14; TEMP 36.7; O2SAT 98; BMI 27.3
[2020-06-03 21:48] LABS: Basophils # 0.1 10^3/uL (0.0-0.1); Basophils % 0.8 %; Eosinophils # 0.1 10^3/uL (0.0-0.8); Eosinophils % 0.8 %; Hematocrit 39.5 % (37.0-47.0); Hemoglobin 12.6 g/dL (11.5-15.3); Lymphocytes # 2.7 10^3/uL (0.8-4.8); Lymphocytes % 34.1 %; Mean Corpuscular HGB Conc 31.9 g/dL (30.0-36.0); Mean Corpuscular Hemoglobin 29.3 pg (28.0-34.0); Mean Corpuscular Volume 91.9 fL (81-99); Monocytes # 0.7 10^3/uL (0.2-0.9); Monocytes % 8.6 %; Neutrophils # 4.32 10^3/uL (1.8-7.7); Neutrophils % 55.4 %; Nucleated Red Blood Cells % 0 %; Platelet Count 261 10^3/cmm (130-400); Red Cell Distribution Width 14.6 % (12.1-15.1); White Blood Count 7.8 10^3/uL (4.0-10.0)
[2020-06-03 22:13] VITALS: BP 143/87; PULSE 87; RESP 16; O2SAT 98
[2020-06-03 22:15] LABS: Alanine Aminotransferase 31 U/L (0-33); Albumin Level 3.9 g/dL (3.5-5.2); Alkaline Phosphatase 216 IU/L (35-105); Anion Gap 10.9 (5-19); Aspartate Amino Transferase 23 U/L (0-32); Blood Urea Nitrogen 13 mg/dL (6-20); Calcium 8.7 mg/dL (8.5-10.5); Carbon Dioxide 28 mmol/L (22-29); Chloride 106 mmol/L (98-107); Globulin 2.9 g/dL (1.3-4.6); Glomerular Filtration Rate 88.2 mL/min (90-130); Glucose 97 mg/dL (65-115); Osmolality Calculated 288 mOsm/kg (285-295); Potassium 3.9 mmol/L (3.5-5.1); Sodium 141 mmol/L (136-145); Total Bilirubin 0.2 mg/dL (0.15-1.2); Total Protein 6.8 g/dL (6.6-8.7)
--- NOTE | 2020-06-03 22:22 | W.ED.FEMALGU ---
HPI - Female Genitourinary General: Chief complaint: Vaginal Bleeding Stated complaint: post ob vaginal bleeding Time Seen by Provider: 06/03/20 22:02 Source: patient Mode of arrival: ambulatory Limitations: no limitations History of Present Illness: HPI Narrative: 49-year-old female who is here with vaginal bleeding. She states she had a LEEP procedure done 2 weeks ago. She is supposed to see Dr. Mcintosh today but overslept and has a new appointment next Monday. States today she started having some bleeding and passed 2 clots. She denies any pain. She denies any weakness. Associated symptoms: Deny abdominal pain, headache(s) or nausea Date of Last Menstrual Period: 08/24/19 Review of Systems Const: Denies: fever(s), chills, body aches or change in appetite Eyes: Denies: blurry vision or eye discomfort ENMT: Denies: throat pain or dental pain Card: Denies: chest pain Resp: Denies: dyspnea GI: Denies: abdominal pain, nausea, vomiting or diarrhea : Reports: vaginal bleeding Musc: Denies: neck pain or back pain Skin/Breast: Denies: rash Neuro: Denies: headache(s) Psych: Denies: depression Kayode/Lymph: Denies: easy bruising All/Imm: Denies: urticaria PFSH ED PFSH: Medical History (Updated 06/03/20 @ 22:23 by Martina Serrano MD) CAD (coronary artery disease) Currently on Plavix after placement of stents [place] [address] Kumari Colon polyps Needs colonoscopy in 2019 Essential hypertension Diagnosed in her early 40s and controlled on medications managed by cardiology-Dr. Kumari Neck pain Opioid-induced hyperalgesia Post-traumatic stress disorder, chronic Surgical History (Updated 05/29/20 @ 14:36 by Bird Vaughn MD) H/O esophagogastroduodenoscopy (05/21/20) History of back surgery Hx of right coronary artery stent placement 2017 Dr Kumari at [facility] [place]. S/P cholecystectomy Open procedure performed in 1989 at [facility] [place]. Menon Status post colonoscopy with polypectomy (05/21/20) polyp - repeat in 5 years Status post hysteroscopy 05/21/2020--hysteroscopy D&C performed at [facility] [place] by Dr. Love for MARTINEZ-pathology pending Status post LEEP (loop electrosurgical excision procedure) of cervix 05/21/2020---LEEP procedure performed at time of hysteroscopy for ESVIN-[address] Love at [facility] [place]. Pathology pending Family History Grandfather Heart disease maternal and paternal Suicide paternal Grandmother Heart disease maternal and paternal Family/Other Heart disease maternal and paternal uncles Lung cancer maternal uncle Thyroid condition niece Mother Diabetes Hypertension Hyperlipidemia Sister Hypertension Thyroid condition Suicide Father Suicide Other Stroke Denies family history of Cervical cancer Colon cancer Ovarian cancer Breast cancer Anesthesia complication Bleeding disorder Pulmonary embolism Social History Smoking and tobacco status: current every day smoker Alcohol intake: current Alcohol intake frequency: few times a month History of recent travel: No Female Reproductive History: Date of last menstrual period: 08/24/19 Physical Exam Const: COMMON NORMALS: no acute distress, patient oriented x3 and healthy appearing HENMT: COMMON NORMALS: normocephalic and atraumatic HEAD & SCALP: normocephalic and atraumatic Eye: COMMON NORMALS: Equal, round and reactive pupils present and EOMs intact bilaterally PUPIL: Yes Equal, round and reactive pupils present Neck/C-Spine: COMMON NORMALS: full ROM and supple Chest: COMMONS NORMALS: normal inspection of the chest and normal palpation of entire chest wall Resp: COMMON NORMALS: normal respiratory effort, No retractions, No use of accessory muscles and clear to auscultation bilaterally AUSCULTATION: clear to auscultation bilaterally Cardio: COMMON NORMALS: regular rate, regular rhythm and No murmurs present (Cardio) RATE: regular rate RHYTHM: regular rhythm GI: COMMON NORMALS: Normal to inspection, nondistended, normoactive bowel sounds present, Soft to palpation, non-tender and no masses PALPATION: Yes Soft to palpation : OTHER: Slight amount of blood in the vaginal vault. She did have a clot over her LEEP procedure slight that I was able to remove. After that she has had no more bleeding Extremity: COMMON NORMALS: normal to inspection and full ROM Neuro: COMMON NORMALS: patient oriented x3, moves all extremities and no focal motor deficits Psych: COMMON NORMALS: mental status grossly normal, Normal thought process present and cooperative THOUGHT PROCESS: Normal thought process present Skin: COMMON NORMALS: no rashes or lesions noted and no wounds GENERAL SKIN EXAM: no rashes or lesions noted Course Vital Signs: Vital signs: Vital Signs Temperature 98.0 F 06/03/20 21:22 Pulse Rate 87 06/03/20 22:13 Respiratory Rate 16 06/03/20 22:13 Blood Pressure 143/87 06/03/20 22:13 Pulse Oximetry 98 06/03/20 22:13 MDM - Female MDM Narrative: Medical decision making narrative: Patient presents with vaginal bleeding likely due to her LEEP procedure. Her bleeding is since stopped. Her hemoglobin here is normal and she has no signs of major bleeding she is to follow-up with her YIELD IMPROVEMENT ENGINEER in 3 to 5 days and return if worsening. She understands and agrees to plan. Lab Data: Labs: Lab Results 06/03/20 06/03/20 06/03/20 Range/Units 21:38 21:38 21:38 WBC 7.8 (4.0-10.0) 10^3/ uL RBC 4.30 (4.1-5.3) 10^6/u L Hgb 12.6 (11.5-15.3) g/dL Hct 39.5 (37.0-47.0) % MCV 91.9 (81-99) fL MCH 29.3 (28.0-34.0) pg MCHC 31.9 (30.0-36.0) g/dL RDW 14.6 (12.1-15.1) % Plt Count 261 (130-400) 10^3/c mm MPV 10.0 (7.4-10.4) fL Neut % (Auto) 55.4 % Lymph % (Auto) 34.1 % Crosby % (Auto) 8.6 % Eos % (Auto) 0.8 % Baso % (Auto) 0.8 % Neut # (Auto) 4.32 (1.8-7.7) 10^3/u L Lymph # (Auto) 2.7 (0.8-4.8) 10^3/u L Crosby # (Auto) 0.7 (0.2-0.9) 10^3/u L Eos # (Auto) 0.1 (0.0-0.8) 10^3/u L Baso # (Auto) 0.1 (0.0-0.1) 10^3/u L Nucleated RBC % (a uto) 0 % Nucleated RBCs # 0.0 /100WBC PT 12.40 (12.1-14.9) SECO NDS INR 0.90 (0.8-1.2) Sodium 141 (136-145) mmol/L Potassium 3.9 (3.5-5.1) mmol/L Chloride 106 (98-107) mmol/L Carbon Dioxide 28 (22-29) mmol/L Anion Gap 10.9 (5-19) BUN 13 (6-20) mg/dL Creatinine 0.7 (0.5-0.9) mg/dL GFR Calculation 88.2 L (90-130) mL/min Glucose 97 (65-115) mg/dL Calculated Osmolal ity 288 (285-295) mOsm/k g Calcium 8.7 (8.5-10.5) mg/dL Total Bilirubin 0.2 (0.15-1.2) mg/dL AST 23 (0-32) U/L ALT 31 (0-33) U/L Alkaline Phosphata se 216 H (35-105) IU/L Total Protein 6.8 (6.6-8.7) g/dL Albumin 3.9 (3.5-5.2) g/dL Globulin 2.9 (1.3-4.6) g/dL Discharge Plan Discharge Patient Disposition: Home Clinical Impression: Vaginal bleeding Condition: Stable Prescriptions: No Action coenzyme Q10 100 mg capsule 100 mg PO DAILY RF: 0 montelukast [Singulair] 10 mg tablet 10 mg PO DAILY RF: 0 baclofen 10 mg tablet 10 mg PO TID RF: 0 nitroglycerin 0.4 mg tablet, sublingual 0.4 mg SUBLINGUAL Q5M PRN (Reason: Chest Pain) RF: 0 lamotrigine [Lamictal] 100 mg tablet 100 mg PO BID Qty: 60 RF: 2 paroxetine HCl [Paxil] 20 mg tablet 20 mg PO .QHS Qty: 30 RF: 2 topiramate [Topamax] 100 mg tablet 100 mg PO BID Qty: 60 RF: 2 hydroxyzine HCl 25 mg tablet 25 mg PO TID PRN (Reason: anxiety) Qty: 90 RF: 2 mecobalamin (vitamin B12) 1,000 mcg tablet,disintegrating 1,000 mcg SUBLINGUAL DAILY RF: 0 pregabalin [Lyrica] 100 mg capsule 100 mg PO DAILY RF: 0 hydrocodone-acetaminophen [Pearson] 5-325 mg tablet 1 tab PO Q6H PRN (Reason: pain) 30 Days Qty: 90 RF: 0 ranolazine 500 mg tablet extended release 12 hr 500 mg PO DAILY Qty: 90 RF: 3 aspirin 81 mg tablet,delayed release (DR/EC) 81 mg PO DAILY RF: 0 simethicone 125 mg capsule 125 mg PO TID PRN (Reason: abdominal distention or gas) Qty: 60 RF: 0 pantoprazole 40 mg tablet,delayed release (DR/EC) 40 mg PO DAILY 30 Days Qty: 30 RF: 3 clopidogrel [Plavix] 75 mg tablet 75 mg PO DAILY Qty: 90 RF: 3 isosorbide mononitrate 60 mg tablet extended release 24 hr 60 mg PO BID Qty: 60 RF: 3 metoprolol succinate 50 mg tablet extended release 24 hr 50 mg PO DAILY Qty: 90 RF: 3 lactulose 10 gram/15 mL solution 0.35 gm PO BID PRN (Reason: Constipation) RF: 0 Discharge Orders: Discharge Order (Routine); Ordered 06/03/20 Ordered By: Martina Serrano Referrals: Alessandro Serrano MD [Physician] - 1-3 days Sixto Kruger MD [Primary Care Provider] - Discharge Diet: Advance as tolerated Discharge Activity: Resume usual activity Patient Instructions: Abnormal Uterine Bleeding Coding Level of Care Code ED 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
[2020-06-03] MEDS: HYDROcodone-acetaminophen 5-325 mg Tablet 1 TAB PO (22:39)
[2020-06-03 22:40] VITALS: BP 132/76; PULSE 76; RESP 16; O2SAT 98
== END 2020-06-03 22:43 | disposition home or self-care (01) ==
PROVIDERS: Emergency Provider Emergency Medicine; PCP Family Medicine
DX: N93.9 Abnormal uterine and vaginal bleeding, unspecified (principal); Z79.82 Long term (current) use of aspirin; Z79.02 Long term (current) use of antithrombotics/antiplatelets; F17.210 Nicotine dependence, cigarettes, uncomplicated; I25.10 Atherosclerotic heart disease of native coronary artery without angina pectoris; I10 Essential (primary) hypertension
CPT/HCPCS: 12345; 36415; 80053; 85025; 85610; 99281; 99283; E0352

== ENCOUNTER 2020-06-09 10:07 | Outpatient (CLI) | payer MEDICAID, SELFPAY ==
--- NOTE | 2020-06-09 10:27 | MR_ITS ---
WS: [id number] MRI LUMBAR SPINE NONCONTRAST TECHNIQUE: Sagittal T1, T2 and STIR imaging. Axial T1 and T2 imaging. CLINICAL INFORMATION: POLYNEUOPATHY, UNSPECIFIED, BACK PAIN COMPARISON: MRI 2 FINDINGS: Mild lumbar curve. No acute compression. No high-grade central canal stenosis. Disc space heights joe tebral body heights are preserved. No high-grade central canal narrowing. L1-L2: Normal. L2-L3: No significant disc bulging. Mild facet arthropathy. Spinal canal and foramen are patent. L3-L4: No significant disc bulging. Mild facet arthropathy. Mild right foraminal narrowing. Slight na rrowing of the subarticular recess bilaterally. L4-L5: Mild annular bulging with slight effacement of ventral thecal sac. Slight narrowing of the sub articular recess bilaterally. Mild right and no significant left foraminal narrowing. Mild facet arth ropathy. L5-S1: Mild annular bulging. Spinal canal and foramen are patent. Mild facet arthropathy. Prior postoperative changes anterior interbody cervical fusion C5-C6. Spinal canal and thoracic MR pa tent on ward assistant imaging. Partially visualized right ovarian cyst measuring 1.6 cm. MR/MR lumbar spine wo con* [id number] IMPRESSION: 1. Mild lumbar curve. No acute compression. No high-grade central canal stenos is. 2. Annular bulging L4-5 with mild right foraminal narrowing and contact of the exiting right L4 nerve root. Recommend correlation for right L4 nerve root sym ptoms. 3. Annular bulging L4-5 with narrowing of the subarticular recess bilaterally right greater than left. Encroachment traversing right L5 nerve root. Mild face t arthropathy this level. 4. Mild narrowing of the subarticular recess bilaterally L3-4 with mild right foraminal narrowing. 5. Mild facet arthropathy L3-L5.
== END 2020-06-09 10:08 | disposition home or self-care (01) ==
LOC: RADWPI 10:11
PROVIDERS: PCP Family Medicine; Visit Provider Internal Medicine
DX: M54.9 Dorsalgia, unspecified (principal); G62.9 Polyneuropathy, unspecified; M47.896 Other spondylosis, lumbar region
CPT/HCPCS: 72148

== ENCOUNTER → 2020-06-11 09:05 | Outpatient (BNVA) | payer MEDICAID, SELFPAY | PROVIDERS: Family Provider Family Medicine; PCP Family Medicine; Visit Provider Nurse Practitioner | DX: F43.12 Post-traumatic stress disorder, chronic (principal) | CPT/HCPCS: 99214 ==

== ENCOUNTER → 2020-07-01 08:39 | Outpatient (BNVA) | payer MEDICAID, SELFPAY | PROVIDERS: Family Provider Family Medicine; PCP Hospitalist; Visit Provider Obstetrics & Gynecology | DX: E34.9 Endocrine disorder, unspecified (principal) | CPT/HCPCS: 84702 ==

== ENCOUNTER → 2020-07-29 09:44 | Outpatient (BNVA) | payer MEDICAID, SELFPAY | PROVIDERS: Family Provider Family Medicine; PCP Hospitalist; Visit Provider Licensed Practical Nurse | DX: M51.17 Intervertebral disc disorders with radiculopathy, lumbosacral region (principal); M96.1 Postlaminectomy syndrome, not elsewhere classified; R20.0 Anesthesia of skin; R20.2 Paresthesia of skin; G60.8 Other hereditary and idiopathic neuropathies; F17.210 Nicotine dependence, cigarettes, uncomplicated | CPT/HCPCS: 99213 ==

== ENCOUNTER 2020-08-11 10:00 | Outpatient (CLI) | payer MEDICAID, SELFPAY ==
--- NOTE | 2020-08-11 10:10 | XRR_ITS ---
PROCEDURE INFORMATION: Exam: XR Cervical Spine, 2 or 3 Views Exam date and time: 08/11/2020 10:10 AM Age: 49 years old Clinical indication: Neck pain; Prior surgery TECHNIQUE: Imaging protocol: XR of the cervical spine, 2 or 3 views. COMPARISON: CT Cervical Spine wo* [id number] 05/01/2017 3:24 PM FINDINGS: Bones/joints: No fracture or other acute abnormalities are seen. The patient has undergone anterior surgical fusion with the metal plate and screws at the C5-C6 level. Position appears satisfactory. There are no significant degenerative changes. There is no malalignment on flexion and extension views. Soft tissues: Unremarkable. XR/XR cervical spine fl/ex [id number] IMPRESSION: 1. Status post C5-C6 anterior fusion. 2. No acute abnormality or malalignment.
--- NOTE | 2020-08-11 10:10 | XRR_ITS ---
PROCEDURE INFORMATION: Exam: XR Lumbosacral Spine, 2 or 3 Views Exam date and time: 08/11/2020 10:10 AM Age: 49 years old Clinical indication: Low back pain TECHNIQUE: Imaging protocol: XR of the lumbosacral spine, 2 or 3 views. COMPARISON: MR lumbar spine wo con* [id number] 06/09/2020 10:41 AM FINDINGS: Bones/joints: No fracture, dislocation or other acute bone or joint abnormalities are seen. There are no significant degenerative changes. There is no malalignment on flexion and extension views. Soft tissues: Unremarkable. XR/XR lumbar spine f/e only [id number] IMPRESSION: No acute abnormality. No malalignment.
--- NOTE | 2020-08-11 10:10 | MR_ITS ---
WS: [id number] MRI CERVICAL SPINE HISTORY: M96.1 Postlaminectomy syndrome, not elsewhere classified COMPARISON: 10/06/2016 Normal cervical alignment. Prior anterior cervical fusion at C5-6 with interbody spacer. Signal within the cervical cord is normal. Visualized posterior fossa is unremarkable. Craniocervical junction, C1 and C2 relationship, odontoid process and soft tissues are normal. C2-C3: Normal. C3-C4: Shallow central disc protrusion. No encroachment upon the ventral cervical cord. C4-C5: Small central disc protrusion extends greatest to the LEFT. Near effacement of CSF. No cord co ntact. C5-C6: Mild osteophytic ridging without stenosis or change. C6-C7: Very shallow central disc protrusion and small osteophytes. No stenosis. C7-T1: Normal. Paraspinal soft tissue are normal. MR/MR cervical spin wo con* [id number] IMPRESSION: 1. Stable anterior cervical fusion with interbody spacer at C5-6 since 7. 2. No significant central or foraminal stenosis. 3. Central to LEFT paracentral small disc protrusions at C4-5 without cord con tact.
== END 2020-08-11 10:01 | disposition home or self-care (01) ==
LOC: RADWPI 10:07
PROVIDERS: PCP Hospitalist; Visit Provider Licensed Practical Nurse
DX: M96.1 Postlaminectomy syndrome, not elsewhere classified (principal); M54.5 Low back pain; M43.22 Fusion of spine, cervical region; M50.221 Other cervical disc displacement at C4-C5 level
CPT/HCPCS: 72040; 72120; 72141; 80053; 80061; 83036; 84443; 85025; 99214

== ENCOUNTER → 2020-08-12 08:33 | Outpatient (BNVA) | payer MEDICAID, SELFPAY | PROVIDERS: Family Provider Family Medicine; PCP Hospitalist; Visit Provider Counselor Professional | DX: F43.12 Post-traumatic stress disorder, chronic (principal) | CPT/HCPCS: 90834 ==

== ENCOUNTER → 2020-08-25 10:02 | Outpatient (BNVA) | payer MEDICAID, SELFPAY | PROVIDERS: Family Provider Family Medicine; PCP Hospitalist; Visit Provider Licensed Practical Nurse | DX: G60.8 Other hereditary and idiopathic neuropathies (principal); M51.17 Intervertebral disc disorders with radiculopathy, lumbosacral region; M54.9 Dorsalgia, unspecified; G89.29 Other chronic pain; M96.1 Postlaminectomy syndrome, not elsewhere classified; R20.0 Anesthesia of skin; R20.2 Paresthesia of skin; F17.210 Nicotine dependence, cigarettes, uncomplicated | CPT/HCPCS: 99213 ==

== ENCOUNTER 2020-08-25 15:27 | Outpatient (CLI) | payer MEDICAID, SELFPAY ==
[2020-08-25 16:38] LABS: 25 Hydroxy Vitamin D 35 ng/mL (30-100); C Reactive Protein 9.1 mg/L (0.0-4.9); Vitamin B12 442 pg/mL (232-1245)
[2020-08-25 16:39] LABS: Folate Level 8.3 ng/mL (4.8-37.3)
[2020-08-25 17:08] LABS: Erythrocyte Sedimentation Rate 23 mm/hr (0-15)
[2020-08-29 04:44] LABS: Methylmalonic Acid 241 nmol/L (87-318)
== END 2020-08-25 15:28 | disposition home or self-care (01) ==
PROVIDERS: PCP Hospitalist; Visit Provider Licensed Practical Nurse
DX: G60.8 Other hereditary and idiopathic neuropathies (principal)
CPT/HCPCS: 36415; 82306; 82607; 82746; 83921; 84260; 85651; 86140; 86431

== ENCOUNTER → 2020-08-27 08:13 | Outpatient (BNVA) | payer MEDICAID, SELFPAY | PROVIDERS: Family Provider Family Medicine; PCP Hospitalist; Visit Provider Counselor Professional | DX: F43.12 Post-traumatic stress disorder, chronic (principal) | CPT/HCPCS: 90832 ==

== ENCOUNTER → 2020-09-01 13:58 | Outpatient (BNVA) | payer MEDICAID, SELFPAY | PROVIDERS: Family Provider Family Medicine; PCP Hospitalist; Visit Provider Licensed Practical Nurse | DX: G89.29 Other chronic pain; I73.00 Raynaud's syndrome without gangrene; M51.17 Intervertebral disc disorders with radiculopathy, lumbosacral region; M96.1 Postlaminectomy syndrome, not elsewhere classified; R20.0 Anesthesia of skin; R20.2 Paresthesia of skin; G60.8 Other hereditary and idiopathic neuropathies; F17.210 Nicotine dependence, cigarettes, uncomplicated | CPT/HCPCS: 99213 ==

== ENCOUNTER → 2020-09-07 13:58 | Outpatient (BNVA) | payer MEDICAID, SELFPAY | PROVIDERS: Family Provider Family Medicine; PCP Hospitalist; Visit Provider Specialist | DX: R20.0 Anesthesia of skin (principal); R20.2 Paresthesia of skin; M96.1 Postlaminectomy syndrome, not elsewhere classified; F17.210 Nicotine dependence, cigarettes, uncomplicated; I73.00 Raynaud's syndrome without gangrene | CPT/HCPCS: 80053; 95886; 95910 ==

== ENCOUNTER → 2020-09-15 08:11 | Outpatient (BNVA) | payer MEDICAID, SELFPAY | PROVIDERS: Family Provider Family Medicine; PCP Hospitalist; Visit Provider Counselor Professional | DX: M54.9 Dorsalgia, unspecified (principal); G89.29 Other chronic pain; M51.17 Intervertebral disc disorders with radiculopathy, lumbosacral region; M96.1 Postlaminectomy syndrome, not elsewhere classified; R20.0 Anesthesia of skin; R20.2 Paresthesia of skin; N18.2 Chronic kidney disease, stage 2 (mild); M51.16 Intervertebral disc disorders with radiculopathy, lumbar region; M47.816 Spondylosis without myelopathy or radiculopathy, lumbar region; F17.210 Nicotine dependence, cigarettes, uncomplicated | CPT/HCPCS: 99204 ==

== ENCOUNTER 2020-09-19 15:18 | Emergency (ER) | payer MEDICAID, SELFPAY ==
[2020-09-19 15:26] VITALS: BP 123/85; PULSE 69; RESP 16; TEMP 36.2; O2SAT 98; BMI 28.3
--- NOTE | 2020-09-19 18:19 | ECG_ITS ---
[facility] Test Date: 2020-09-19 Pat Name: Alex Malhotra Department: Room: Gender: Female Guest Room Inspector: : [id number] Requested By: Jabier Benz Order Number: [id number] Joshua MD: Calvin Sanchez M.D. Measurements Intervals [place] Rate: 68 P: -3 RI: 152 QRS: -23 QRSD: 108 T: 3 QT: 365 QTc: 390 Interpretive Statements SINUS RHYTHM LEFT VENTRICULAR HYPERTROPHY AND ST-T CHANGE [VOLTAGE CRITERIA PLUS ST/T ABNORMALITY] Compared to ECG 04/21/2020 10:42:48 ST (T wave) deviation now present Sinus bradycardia no longer present Myocardial infarct finding no longer present Electronically Signed On 09-20-2020 11:01:00 FIELD MARKETING DIRECTOR by Calvin Sanchez M.D. [id number] f
--- NOTE | 2020-09-19 18:20 | XRR_ITS ---
PROCEDURE INFORMATION: Exam: XR Chest, 1 View Exam date and time: 09/19/2020 6:51 PM Age: 49 years old Clinical indication: Chest pain; Type not specified; Prior surgery; Additional info: Cp TECHNIQUE: Imaging protocol: XR of the chest Views: 1 view. COMPARISON: CR XR chest 1V portable [id number] 12/08/2019 1:01 AM FINDINGS: Tubes, catheters and devices: C-spine hardware. Lungs: Linear opacities in the left lung base with volume loss. Calcified granuloma in the left lung. The right lung is clear. Pleural space: Unremarkable. No pleural effusion. No pneumothorax. Heart/Mediastinum: Unremarkable. No cardiomegaly. Bones/joints: Unremarkable. XR/XR chest 1V portable [id number] IMPRESSION: Left base atelectasis or scarring.
--- NOTE | 2020-09-19 19:10 | ED_ITS ---
HPI - Chest Pain General: Chief Complaint: Chest Pain Stated Complaint: Chest/Back Pain Time Seen by Provider: 09/19/20 18:49 Source: patient Mode of arrival: ambulatory Limitations: no limitations History of Present Illness: HPI narrative: Ms. Malhotra is a very nice 49-year-old female who comes in complaining of pain in her chest and back. She states she has a sharp pain in the right side of her upper back that radiates around to the front of her chest. She states the pain started last night and has been constant. She states she always has some pain at rest but anytime she moves in certain positions or tries to move it exacerbates the pain greatly. She has pain when she takes deep breath. She denies fever, cough, shortness of breath, diaphoresis, nausea or vomiting or any other exertional component to the pain. Patient states that she is had heart problems in the past but this does not feel like that. Patient denies having a DVT or PE. Patient denies any ot her complaints. Associated symptoms: Deny abdominal pain, diaphoresis, dyspnea, fever(s), nausea, palpitations, syncope or vomiting Review of Systems Const: Denies: fever(s), chills, body aches, fatigue, malaise or diaphoresis Eyes: Denies: change in vision, blurry vision, photophobia, eye discomfort, eye discharge, eye redness or yellow eyes ENMT: Denies: throat pain, odynophagia, hoarseness, swelling of lips/tongue, ear or mastoid pain, ear discharge, change in hearing or nasal discharge Card: Reports: chest pain; Denies: palpitations, irregular heart rhythm, edema, lightheadedness, syncope, pre-syncope, dyspnea on exertion or orthopnea Resp: Denies: dyspnea, productive cough, non-productive cough, wheezing, hemoptysis or chest congestion GI: Denies: abdominal pain, nausea, vomiting, hematemesis, coffee ground emesis, heartburn, diarrhea, constipation, GI cramping, hematochezia or melena : Denies: flank pain, dysuria, urinary frequency, urinary urgency or hematuria Musc: Reports: back pain; Denies: neck pain, extremity pain, extremity swelling, joint pain, joint swelling, joint redness, joint warmth or joint stiffness Skin/Breast: Denies: rash, pruritus, erythema, skin pain or skin tenderness Neuro: Denies: headache(s), numbness in extremities, weakness in extremities, sensory changes, lack of coordination, difficulty walking, dizziness, vertigo, confusion, Slurred speech present or seizure-like activity Kayode/Lymph: Denies: easy bruising, easy bleeding, petechiae, purpura or enlarged lymph nodes All/Imm: Denies: urticaria, throat swelling, tongue swelling, facial swelling or acute wheezing PFSH ED PFSH: Medical History Acute sinusitis with symptoms > 10 days CAD (coronary artery disease) Currently on Plavix after placement of stents [place] [address] Kumari Cervical post-laminectomy syndrome 04/05/2016 Dr. Alma Harvey C5-C6 ACDFF Chronic back pain greater than 3 months duration CKD (chronic kidney disease) stage 2, GFR 60-89 ml/min Colon polyps Needs colonoscopy in 2019 Essential hypertension GERD (gastroesophageal reflux disease) Intervertebral disc disorder with radiculopathy of lumbosacral region Lupus Possibly has lupus and is currently undergoing evaluation by iron worker foreman Dr. Pepper in [place] and had an appointment with him in March. 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 Alma Harvey C5-C7 ACDFF Hx of right coronary artery stent [place] 2016 [place] [facility] [place]/P cholecystectomy [place] 1989 [place] [facility] [place] Status post colonoscopy with polypectomy (05/21/20) polyp - repeat in 5 years Status post hysteroscopy 05/21/2020--hysteroscopy D&C [place] [facility] [place] Love for MARTINEZ-pathology showed benign lower uterine segment epithelium and stroma. Status post LEEP (loop electrosurgical excision procedure) of cervix 05/21/2020---LEEP procedure performed at time of hysteroscopy for ESVIN-[address] [place] [facility] [place] Pathology showed HPV changes and chronic inflammation with negative margins. Post LEEP ECC showed benign endocervical tissue, Family History Grandfather Heart disease maternal and paternal Grandmother Heart disease maternal and paternal Mother Diabetes Hypertension Hyperlipidemia Sister Hypertension Thyroid condition Father CAD (coronary artery disease), Onset Age: 50 Other Stroke Social History Smoking and tobacco status: current every day smoker Alcohol intake: never Household members: family Marital status: Single Current occupational status: unemployed History of recent travel: No Female Reproductive History: Date of last menstrual period: 08/24/19 Physical Exam Const: COMMON NORMALS: no acute distress, patient oriented x3, no limitations and alert GENERAL APPEARANCE: cooperative HENMT: COMMON NORMALS: normocephalic, atraumatic, external ears normal, EAC's normal and Normal external nose present HEAD & SCALP: normal to inspection, normocephalic and atraumatic FACE & SINUS: normal facial exam and face symmetric NOSE: Normal external nose present and Normal nares present EXTERNAL EAR: Yes external ears normal EXTERNAL AUDITORY CANAL: EAC's normal MOUTH: Normal oral and palatal mucosa present, lip normal and tongue normal Eye: COMMON NORMALS: Equal, round and reactive pupils present and conjunctivae normal GENERAL EYE: appearance normal, both eyes and all related structures ALIGNMENT: Yes alignment normal PERIORBITAL: periorbital findings normal EYELID: eyelids normal CONJUNCTIVA: Yes conjunctivae normal SCLERA: sclerae normal PUPIL: Yes Equal, round and reactive pupils present Neck/C-Spine: COMMON NORMALS: full ROM, no lymphadenopathy, supple, no meningeal signs and no JVD GENERAL: Yes normal visual inspection and Yes trachea midline Chest: COMMONS NORMALS: normal inspection of the chest and normal palpation of entire chest wall Resp: COMMON NORMALS: normal respiratory effort, No retractions, No use of accessory muscles and clear to auscultation bilaterally EFFORT & INSPECTION: Yes able to speak in complete sentences and Yes symmetric chest movement AUSCULTATION: clear to auscultation bilaterally, no crackles, no rales, no rhonchi and no wheezes Cardio: COMMON NORMALS: no JVD, regular rate, regular rhythm, S1 normal heart sound present and S2 normal heart sound present RATE: regular rate RHYTHM: regular rhythm HEART SOUNDS: S1 normal heart sound present, S2 normal heart sound present, no click, no gallops, no murmurs and no rubs GI: COMMON NORMALS: Soft to palpation and No hepatosplenomegaly present PALPATION: Yes Soft to palpation, No Tenderness to palpation present (GI), No Guarding due to palpation present (GI), No Rigid due to palpation, Yes No hepatosplenomegaly present, No Hernia present, No Palpable mass present and No Pulsatile mass present : COMMON NORMALS: Yes no CVA tenderness BLADDER/KIDNEY EXAM: Yes no CVA tenderness EXTERNAL FEMALE EXAM: No Hernia present Back/Pelvis: COMMON NORMALS: no CVA tenderness, thoracic and lumbar spine normal to inspection, no thoracic nor lumbar tenderness and thoraco-lumbar ROM normal Extremity: COMMON NORMALS: normal to inspection, full ROM, capillary refill normal, no joint enlargement, no clubbing, cyanosis or edema and no calf tenderness Neuro: COMMON NORMALS: patient oriented x3, CN's II-XII intact bilaterally, moves all extremities, no focal motor deficits and no sensory deficits noted SENSORIUM/ORIENTATION: Yes alert MENINGEAL SIGNS: Yes no meningeal signs SPEECH: speech normal Psych: COMMON NORMALS: mental status grossly normal, Normal thought process present, cooperative, normal affect, speech normal and activity/motor behavior normal SPEECH: Yes normal speech THOUGHT PROCESS: Normal thought process present Skin: COMMON NORMALS: no rashes or lesions noted, turgor normal, no jaundice, no petechiae and no mottling GENERAL SKIN EXAM: no rashes or lesions noted and turgor normal Course Vital Signs: Vital signs: Vital Signs Temperature 97.2 F L 09/19/20 15:26 Pulse Rate 60 09/19/20 22:34 Respiratory Rate 22 H 09/19/20 22:34 Blood Pressure 116/72 09/19/20 22:34 Pulse Oximetry 97 09/19/20 22:34 MDM - Chest Pain MDM Narrative: Medical decision making narrative: The patient is feeling much better and is ready to go home. She denies any other questions or concerns. Her pain seems to be positional in nature. I go and place her on a muscle relaxer as she does have a significant point of muscle spasm in her back. Patie nt declines any further cardiac evaluation would like to be discharged. Lab Data: Attestation: I reviewed the patient's lab results. Labs: Lab Results 09/19/20 09/19/20 09/19/20 Range/Units 19:00 19:07 19:07 WBC 11.4 H (4.0-10.0) 10^3/ uL RBC 4.49 (4.1-5.3) 10^6/u L Hgb 13.4 (11.5-15.3) g/dL Hct 41.3 (37.0-47.0) % MCV 92.0 (81-99) fL MCH 29.8 (28.0-34.0) pg MCHC 32.4 (30.0-36.0) g/dL RDW 14.3 (12.1-15.1) % Plt Count 238 (130-400) 10^3/c mm MPV 9.8 (7.4-10.4) fL Neut % (Auto) 68.0 % Lymph % (Auto) 22.1 % [place]in[place] % (Auto) 8.6 % Eos % (Auto) 0.5 % Baso % (Auto) 0.4 % Neut # (Auto) 7.72 H (1.8-7.7) 10^3/u L Lymph # (Auto) 2.5 (0.8-4.8) 10^3/u L [place]in[place] # (Auto) 1.0 H (0.2-0.9) 10^3/u L Eos # (Auto) 0.1 (0.0-0.8) 10^3/u L Baso # (Auto) 0.0 (0.0-0.1) 10^3/u L Nucleated RBC % (a uto) 0 % Nucleated RBCs # 0.0 /100WBC D-Dimer (0-0.59) ug/mIFE U Sodium 137 (136-145) mmol/L Potassium 4.0 (3.5-5.1) mmol/L Chloride 104 (98-107) mmol/L Carbon Dioxide 24 (22-29) mmol/L Anion Gap 13.0 (5-19) BUN 7 (6-20) mg/dL Creatinine 0.7 (0.5-0.9) mg/dL GFR Calculation 88.2 L (90-130) mL/min Glucose 110 (65-115) mg/dL Calculated Osmolal ity 283 L (285-295) mOsm/k g Calcium 9.4 (8.5-10.5) mg/dL Total Bilirubin 0.4 (0.15-1.2) mg/dL AST 11 (0-32) U/L ALT 13 (0-33) U/L Alkaline Phosphata se 150 H (35-105) IU/L Troponin T Baselin e (0-10) ng/L Troponin T 120 Min [place] (0-10) ng/L Delta Troponin T (0-10) ABS# Total Protein 6.7 (6.6-8.7) g/dL Albumin 4.0 (3.5-5.2) g/dL Globulin 2.7 (1.3-4.6) g/dL Urine Color Yellow (Yellow) Urine Appearance Clear (CLEAR) Urine pH 5 (5-7) Ur Specific Gravit y 1.010 (1.005-1.030) Urine Protein Neg (Negative) Urine Glucose (UA) Norm (Normal) Urine Ketones Negative (Negative) Urine Blood Neg (Negative) Urine Nitrate Negative (Negative) Urine Bilirubin Neg (Negative) Urine Urobilinogen Norm (Negative) mg/dL Ur Leukocyte Amber ase Negative (Negative) 09/19/20 09/19/20 09/19/20 Range/Units 19:07 19:07 19:58 WBC (4.0-10.0) 10^3/ uL RBC (4.1-5.3) 10^6/u L Hgb (11.5-15.3) g/dL Hct (37.0-47.0) % MCV (81-99) fL MCH (28.0-34.0) pg MCHC (30.0-36.0) g/dL RDW (12.1-15.1) % Plt Count (130-400) 10^3/c mm MPV (7.4-10.4) fL Neut % (Auto) % Lymph % (Auto) % [place]in[place] % (Auto) % Eos % (Auto) % Baso % (Auto) % Neut # (Auto) (1.8-7.7) 10^3/u L Lymph # (Auto) (0.8-4.8) 10^3/u L Semin[place] # (Auto) (0.2-0.9) 10^3/u L Eos # (Auto) (0.0-0.8) 10^3/u L Baso # (Auto) (0.0-0.1) 10^3/u L Nucleated RBC % (a uto) % Nucleated RBCs # /100WBC D-Dimer 0.74 H (0-0.59) ug/mIFE U Sodium (136-145) mmol/L Potassium (3.5-5.1) mmol/L Chloride (98-107) mmol/L Carbon Dioxide (22-29) mmol/L Anion Gap (5-19) BUN (6-20) mg/dL Creatinine (0.5-0.9) mg/dL GFR Calculation (90-130) mL/min Glucose (65-115) mg/dL Calculated Osmolal ity (285-295) mOsm/k g Calcium (8.5-10.5) mg/dL Total Bilirubin (0.15-1.2) mg/dL AST (0-32) U/L ALT (0-33) U/L Alkaline Phosphata se (35-105) IU/L Troponin T Baselin e 6 (0-10) ng/L Troponin T 120 Min [place] 6.00 (0-10) ng/L Delta Troponin T 0 (0-10) ABS# Total Protein (6.6-8.7) g/dL Albumin (3.5-5.2) g/dL Globulin (1.3-4.6) g/dL Urine Color (Yellow) Urine Appearance (CLEAR) Urine pH (5-7) Ur Specific Gravit y (1.005-1.030) Urine Protein (Negative) Urine Glucose (UA) (Normal) Urine Ketones (Negative) Urine Blood (Negative) Urine Nitrate (Negative) Urine Bilirubin (Negative) Urine Urobilinogen (Negative) mg/dL Ur Leukocyte Amber ase (Negative) Imaging Data^: CXR: Attestation: I personally reviewed and interpreted this imaging study as follows: My impression: Left lobar infiltrate versus atelectasis. Otherwise unremarkable. CT Chest: Radiologist's impression: [address] [place] [address] CT Scan Report Signed Patient: Alex Malhotra Unit #: [id number] : 1970 Age/Sex: 49 / F ADM Date: 09/19/20 Loc: ER Room/Bed: Attending Dr: Ordering Provider/Ordering MD: Delaney Coates DO Date of Service: 09/19/20 Procedure(s): CT angio chest PE protcl [id number] Accession Number(s): [id number] Report Number: [id number] PROCEDURE INFORMATION: Exam: CT Angiography Chest With Contrast Exam date and time: 09/19/2020 7:34 PM Age: 49 years old Clinical indication: Right-sided chest pain; Patient HX: R sided chest/upper back pain; Additional info: Chest pain/back pain/pleuritic pain TECHNIQUE: Imaging protocol: Computed tomographic angiography of the chest with intravenous contrast. 3D rendering (Not supervised by radiologist): MIP and/or 3D reconstructed images were created by the technologist. Radiation optimization: All CT scans at this facility use at least one of these dose optimization techniques: automated exposure control; mA and/or kV adjustment per patient size (includes targeted exams where dose is matched to clinical indication); or iterative reconstruction. Contrast material: OMNI 350; Contrast volume: 62 ml; Contrast route: INTRAVENOUS (IV); COMPARISON: CR (CHEST, ) 09/19/2020 6:41 PM RADIATION DOSE METRICS: Total DLP (mGy-cm): 498.99 FINDINGS: Pulmonary arteries: Normal. No pulmonary emboli. Aorta: Unremarkable. No aortic aneurysm. No aortic dissection. Lungs: Calcified granuloma in the left upper lobe. Linear opacities in both lower lobes, right middle lobe, and in the lingula. The lungs are otherwise clear. No consolidation. Pleural space: Unremarkable. No pneumothorax. No pleural effusion. Heart: Coronary artery calcifications. Lymph nodes: Unremarkable. No enlarged lymph nodes. Gallbladder and bile ducts: Cholecystectomy. Mild prominence of the extrahepatic ducts is most likely reservoir effect. Bones/joints: Unremarkable. No acute fracture. Soft tissues: Unremarkable. CT/CT angio chest PE protcl [id number] IMPRESSION: 1. No evidence for pulmonary embolus. 2. Bibasilar atelectasis. No evidence for active pneumonia. Radiation Dose CTDIVOL = (mGy): DLP = 498.99 (mGy-cm) Dictated By: Santo Nolan Signed By: Santo Nolan Signed Date/Time: 09/19/202042 DD/ 40 EKG Data^: EKG 1: Attestation: I personally reviewed and interpreted this EKG as follows: EKG interpretation date: 09/19/20 EKG interpretation time: 19:11 Interpretation: Normal sinus rhythm at 68 beats a minute, left axis deviation, LVH, nonspecific ST and T wave changes. Similar to previous. EKG 2: Attestation: I personally reviewed and interpreted this EKG as follows: EKG interpretation date: 09/19/20 EKG interpretation time: 22:00 Interpretation: Sinus bradycardia 54 beats a minute, no blocks, normal intervals, nonspecific ST-T wave changes. Similar to previous. Discharge Plan Discharge Patient Disposition: Home Clinical Impression: Chest pain Qualifiers: Chest pain type: unspecified Qualified Code(s): R07.9 - Chest pain, unspecified Back pain Qualifiers: Back pain location: thoracic back pain Chronicity: acute Back pain laterality: right Qualified Code(s): M54.6 - Pain in thoracic spine Condition: Stable Prescriptions: New cyclobenzaprine 10 mg tablet 10 mg PO TID PRN (Reason: muscle spasm) Qty: 30 RF: 0 No Action coenzyme Q10 100 mg capsule 100 mg PO DAILY RF: 0 nitroglycerin 0.4 mg tablet, sublingual 0.4 mg SUBLINGUAL Q5M PRN (Reason: Chest Pain) RF: 0 baclofen 10 mg tablet 10 mg PO TID PRNRF: 0 mecobalamin (vitamin B12) 1,000 mcg tablet,disintegrating 1,000 mcg SUBLINGUAL DAILY RF: 0 pregabalin [Lyrica] 100 mg capsule 100 mg PO BID Qty: 60 RF: 0 cholecalciferol (vitamin D3) [Vitamin D3] 25 mcg (1,000 unit) tablet 25 mcg PO DAILY RF: 0 Adult Probiotic 3 billion cell capsule 3,000 mmu cells PO DAILY RF: 0 levocetirizine 5 mg tablet 5 mg PO BID RF: 0 ranolazine [Ranexa] 500 mg tablet extended release 12 hr 500 mg PO ONCE RF: 0 hydrocodone-acetaminophen 5-325 mg tablet 1 tab PO Q6H PRNRF: 0 aspirin 81 mg tablet,delayed release (DR/EC) 81 mg PO DAILY RF: 0 simethicone 125 mg capsule 125 mg PO TID PRN (Reason: abdominal distention or gas) Qty: 60 RF: 0 pantoprazole 40 mg tablet,delayed release (DR/EC) 40 mg PO DAILY 30 Days Qty: 30 RF: 3 prednisone 20 mg tablet 60 mg PO DAILY 5 Days Qty: 15 RF: 0 paroxetine HCl [Paxil] 40 mg tablet 40 mg PO .HS Qty: 30 RF: 1 lamotrigine [Lamictal] 100 mg tablet 100 mg PO BID Qty: 60 RF: 2 topiramate [Topamax] 100 mg tablet 100 mg PO BID Qty: 60 RF: 2 hydroxyzine HCl 25 mg tablet 25 mg PO TID PRN (Reason: anxiety) Qty: 90 RF: 2 clopidogrel [Plavix] 75 mg tablet 75 mg PO DAILY Qty: 90 RF: 3 metoprolol succinate 50 mg tablet extended release 24 hr 50 mg PO DAILY Qty: 90 RF: 3 atorvastatin 40 mg tablet 40 mg PO DAILY Qty: 90 RF: 3 isosorbide mononitrate 60 mg tablet extended release 24 hr 60 mg PO BID Qty: 60 RF: 6 lactulose 10 gram/15 mL solution 0.35 gm PO BID PRN (Reason: Constipation) RF: 0 Discharge Orders: Discharge ED (Routine); Ordered 09/19/20 Ordered By: Delaney Coates Referrals: Andreas Sauceda MD [Primary Care Provider] - 1-3 days Discharge Diet: Advance as tolerated Discharge Activity: Increase activity as tolerated Patient Instructions: Chest Pain (ED), Thoracic Pain (ED) Activity Restrictions/Additional Instructions: Please return to the ER immediately for any of the signs or symptoms listed on your discharge instruction sheets, worsening/changing of your symptoms, you are not getting better as quickly as expected, or for ANY other cause or concerns. You have been offered further evaluation and care here of your heart but have declined. Of course any heart problem can be life-threatening so if you change your mind, your symptoms change/worsen, you pass out or nearly pass out, your chest pain returns or you simply change her mind please return to the ER immediately for recheck. If your symptoms change or worsen please return to the ER for further evaluation and care. Coding Level of Care Code ED Personnel Generalist Manager for Mauricio Fwd Exam Comprehensive
[2020-09-19 19:15] VITALS: RESP 20
[2020-09-19] MEDS: morphine 4 mg/mL SDV 1 mL IVP (19:15)
[2020-09-19] MEDS: ondansetron 2 mg/ML SDV 2 mL 4 MG IVP (19:15)
[2020-09-19 19:16] LABS: Basophils % 0.4 %; Eosinophils # 0.1 10^3/uL (0.0-0.8); Eosinophils % 0.5 %; Hematocrit 41.3 % (37.0-47.0); Hemoglobin 13.4 g/dL (11.5-15.3); Lymphocytes # 2.5 10^3/uL (0.8-4.8); Lymphocytes % 22.1 %; Mean Corpuscular HGB Conc 32.4 g/dL (30.0-36.0); Mean Corpuscular Hemoglobin 29.8 pg (28.0-34.0); Mean Platelet Volume 9.8 fL (7.4-10.4); Monocytes % 8.6 %; Neutrophils # 7.72 10^3/uL (1.8-7.7); Nucleated Red Blood Cells % 0 %; Platelet Count 238 10^3/cmm (130-400); Red Blood Count 4.49 10^6/uL (4.1-5.3); Red Cell Distribution Width 14.3 % (12.1-15.1); White Blood Count 11.4 10^3/uL (4.0-10.0)
[2020-09-19 19:27] LABS: Add Urine Microscopic? NO
[2020-09-19 19:33] LABS: Bilirubin Urine Neg (Negative); Blood Urine Neg (Negative); Glucose Urine UA Norm (Normal); Ketones Urine Negative (Negative); Leukocyte Esterase Urine Negative (Negative); Nitrate Urine Negative (Negative); Protein Urine Neg (Negative); Urine Appearance Clear (CLEAR); Urine Color Yellow (Yellow); Urobilinogen Urine Norm (Negative); pH Urine 5 (5-7)
[2020-09-19 19:37] LABS: Alanine Aminotransferase 13 U/L (0-33); Alkaline Phosphatase 150 IU/L (35-105); Aspartate Amino Transferase 11 U/L (0-32); Blood Urea Nitrogen 7 mg/dL (6-20); Calcium 9.4 mg/dL (8.5-10.5); Carbon Dioxide 24 mmol/L (22-29); Chloride 104 mmol/L (98-107); Globulin 2.7 g/dL (1.3-4.6); Glomerular Filtration Rate 88.2 mL/min (90-130); Glucose 110 mg/dL (65-115); Osmolality Calculated 283 mOsm/kg (285-295); Sodium 137 mmol/L (136-145); Total Bilirubin 0.4 mg/dL (0.15-1.2); Total Protein 6.7 g/dL (6.6-8.7)
[2020-09-19 19:39] LABS: Troponin(5th) Baseline 6 ng/L (0-10)
[2020-09-19 19:42] LABS: D Dimer 0.74 ug/mIFEU (0-0.59)
[2020-09-19] MEDS: iohexol 350 mg/mL 100 mL Btl IV (19:48)
--- NOTE | 2020-09-19 20:19 | ECG_ITS ---
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 Measurements Intervals [place] Rate: 54 P: 62 ND: 171 QRS: -8 QRSD: 99 T: 26 QT: 415 QTc: 395 Interpretive Statements SINUS BRADYCARDIA MINIMAL ST DEPRESSION [0.025+ mV ST DEPRESSION] Compared to ECG 09/19/2020 15:23:55 Sinus rhythm no longer present Left ventricular hypertrophy no longer present ST (T wave) deviation still present Electronically Signed On 09-20-2020 11:04:36 CHAIRMAN OF THE BOARD by Calvin Sanchez M.D. [id number]
[2020-09-19 20:21] VITALS: BP 105/73; PULSE 56; RESP 14; O2SAT 98
[2020-09-19 20:28] LABS: Troponin 5 2HR Delta 0 ABS# (0-10)
[2020-09-19 22:02] VITALS: BP 105/73; PULSE 75; RESP 14; O2SAT 96
[2020-09-19 22:34] VITALS: BP 116/72; PULSE 60; RESP 22; O2SAT 97
== END 2020-09-19 22:34 | disposition home or self-care (01) ==
PROVIDERS: Nurse Practitioner Family; Emergency Provider Emergency Medicine; PCP Family Medicine Adult Medicine
DX: R07.9 Chest pain, unspecified (principal); M54.6 Pain in thoracic spine; Z79.82 Long term (current) use of aspirin; Z79.02 Long term (current) use of antithrombotics/antiplatelets; I25.10 Atherosclerotic heart disease of native coronary artery without angina pectoris; I12.9 Hypertensive chronic kidney disease with stage 1 through stage 4 chronic kidney disease, or unspecified chronic kidney disease; N18.2 Chronic kidney disease, stage 2 (mild); F17.210 Nicotine dependence, cigarettes, uncomplicated
CPT/HCPCS: 12345; 36415; 71045; 71275; 80053; 81003; 84484; 85025; 85378; 93005; 96374; 96375; 99283; 99284; J2270; J2405; Q9967

== ENCOUNTER → 2020-09-29 14:10 | Outpatient (BNVA) | payer MEDICAID, SELFPAY | PROVIDERS: PCP Family Medicine Adult Medicine; Visit Provider Anesthesiology Pain Medicine | DX: G89.29 Other chronic pain (principal); M51.16 Intervertebral disc disorders with radiculopathy, lumbar region; M47.816 Spondylosis without myelopathy or radiculopathy, lumbar region; M54.9 Dorsalgia, unspecified; Z79.891 Long term (current) use of opiate analgesic | CPT/HCPCS: 64483; 64484; J1100; J3490 ==

== ENCOUNTER → 2020-10-16 09:47 | Outpatient (BNVA) | payer MEDICAID, SELFPAY | PROVIDERS: PCP Family Medicine Adult Medicine; Visit Provider Nurse Practitioner | DX: F43.12 Post-traumatic stress disorder, chronic (principal) | CPT/HCPCS: 99214 ==

== ENCOUNTER → 2020-10-19 09:08 | Outpatient (BNVA) | payer MEDICAID, SELFPAY | PROVIDERS: PCP Family Medicine Adult Medicine; Visit Provider Internal Medicine Rheumatology | DX: I73.00 Raynaud's syndrome without gangrene (principal); M19.90 Unspecified osteoarthritis, unspecified site; M79.7 Fibromyalgia; Z79.899 Other long term (current) drug therapy; F17.210 Nicotine dependence, cigarettes, uncomplicated | CPT/HCPCS: 99204 ==

== ENCOUNTER → 2020-10-23 08:33 | Outpatient (BNVA) | payer MEDICAID, SELFPAY | PROVIDERS: PCP Family Medicine Adult Medicine; Visit Provider Anesthesiology Pain Medicine | DX: G89.29 Other chronic pain (principal); M51.16 Intervertebral disc disorders with radiculopathy, lumbar region; M51.17 Intervertebral disc disorders with radiculopathy, lumbosacral region; M47.816 Spondylosis without myelopathy or radiculopathy, lumbar region; M54.9 Dorsalgia, unspecified; M96.1 Postlaminectomy syndrome, not elsewhere classified; M62.830 Muscle spasm of back; N18.2 Chronic kidney disease, stage 2 (mild); F17.210 Nicotine dependence, cigarettes, uncomplicated | CPT/HCPCS: 99214 ==

== ENCOUNTER 2020-11-19 08:55 | Outpatient (CLI) | payer MEDICAID, SELFPAY ==
--- NOTE | 2020-11-19 09:00 | XR_ITS ---
WS: [id number] LEFT HAND: 3 VIEW(S) TECHNIQUE: PA, oblique and lateral. HISTORY: M19.90 - Unspecified osteoarthritis, unspecified site COMPARISON: 12/12/2017 No acute fracture or dislocation. Very minimal narrowing of the interphalangeal joints. No erosions. Very mild degenerative changes at the first CMC joint. XR/XR hand LT min 3V* [id number] IMPRESSION: Mild osteoarthritis LEFT hand.
--- NOTE | 2020-11-19 10:15 | XR_ITS ---
WS: [id number] RIGHT HAND: 3 VIEW(S) TECHNIQUE: PA, oblique and lateral. HISTORY: M19.90 - Unspecified osteoarthritis, unspecified site COMPARISON: 12/12/2017 No acute fracture or dislocation. Very minimal narrowing involving the interphalangeal joint spaces with small developing osteophytes. No erosions at the metatarsal heads. No periostitis. XR/XR hand RT min 3V* [id number] IMPRESSION: Mild changes of osteoarthritis.
--- NOTE | 2020-11-19 10:45 | XR_ITS ---
WS: [id number] LEFT FOOT: 3 VIEW(S) TECHNIQUE: AP, oblique and lateral. HISTORY: M19.90 - Unspecified osteoarthritis, unspecified site COMPARISON: None available. No acute fracture or dislocation. Normal tarsal/metatarsal alignment. Marked hammertoe deformities involving the second through fifth toes. No erosions at the first metata rsal head. There is significant beaking and osteophyte formation involving the medial navicular with an associated accessory ossicle. Significant narrowing and hypertrophic bone formation between the na vicular and accessory ossicle. XR/XR foot LT min 3V* [id number] IMPRESSION: 1. No significant osteoarthritis or erosions. 2. Hammertoe deformities involving the second through fifth toes. 3. Significant degenerative changes between the navicular and accessory navicu lar ossicle.
--- NOTE | 2020-11-19 11:15 | XR_ITS ---
WS: [id number] RIGHT FOOT: 3 VIEW(S) TECHNIQUE: AP, oblique and lateral. HISTORY: M19.90 - Unspecified osteoarthritis, unspecified site COMPARISON: None available. No acute fracture or dislocation. Mild hammertoe deformities involving the second through fifth toes. Small navicular accessory ossicle. Normal tarsal/metatarsal alignment. No soft tissue abnormality or bone destruction. XR/XR foot RT min 3V* [id number] IMPRESSION: 1. Minimal hammertoe deformities involving the second through fifth toes. 2. Navicular accessory ossicle without significant beaking or degeneration.
== END 2020-11-19 08:56 | disposition home or self-care (01) ==
LOC: RADWPI 08:56
PROVIDERS: PCP Family Medicine Adult Medicine; Visit Provider Internal Medicine Rheumatology
DX: M19.90 Unspecified osteoarthritis, unspecified site (principal); M20.42 Other hammer toe(s) (acquired), left foot; M19.042 Primary osteoarthritis, left hand; M19.041 Primary osteoarthritis, right hand
CPT/HCPCS: 73130; 73630

== ENCOUNTER 2020-11-19 09:42 | Outpatient (CLI) | payer MEDICAID, SELFPAY ==
[2020-11-19 10:24] LABS: Basophils # 0.1 10^3/uL (0.0-0.1); Basophils % 1.1 %; Eosinophils # 0.1 10^3/uL (0.0-0.8); Eosinophils % 1.1 %; Hematocrit 41.4 % (37.0-47.0); Hemoglobin 13.2 g/dL (11.5-15.3); Lymphocytes # 1.7 10^3/uL (0.8-4.8); Lymphocytes % 31.1 %; Mean Corpuscular HGB Conc 31.9 g/dL (30.0-36.0); Mean Corpuscular Hemoglobin 29.3 pg (28.0-34.0); Mean Corpuscular Volume 91.8 fL (81-99); Mean Platelet Volume 10.1 fL (7.4-10.4); Monocytes # 0.4 10^3/uL (0.2-0.9); Monocytes % 7.5 %; Neutrophils # 3.12 10^3/uL (1.8-7.7); Nucleated Red Blood Cells % 0 %; Platelet Count 239 10^3/cmm (130-400); Red Blood Count 4.51 10^6/uL (4.1-5.3); White Blood Count 5.3 10^3/uL (4.0-10.0)
[2020-11-19 10:26] LABS: Alanine Aminotransferase 15 U/L (0-33); Alkaline Phosphatase 115 IU/L (35-105); Aspartate Amino Transferase 14 U/L (0-32); C Reactive Protein 1.1 mg/L (0.0-4.9); Globulin 2.8 g/dL (1.3-4.6); Glomerular Filtration Rate 88.2 mL/min (90-130); Total Bilirubin 0.3 mg/dL (0.15-1.2); Total Protein 6.8 g/dL (6.6-8.7)
[2020-11-19 13:30] LABS: Erythrocyte Sedimentation Rate 15 mm/hr (0-15)
[2020-11-20 12:07] LABS: COMPLEMENT COMPONENT C3C 109 mg/dL (83-193); COMPLEMENT COMPONENT C4C 21 mg/dL (15-57)
[2020-11-20 14:13] LABS: ANA SCREEN, IFA NEGATIVE (NEGATIVE); CENTROMERE B ANTIBODY <1.0 NEG AI (<1.0 NEG); COMPLEMENT, TOTAL (CH50) 52 U/mL (31-60); JO-1 ANTIBODY <1.0 NEG AI (<1.0 NEG); RNP ANTIBODY <1.0 NEG AI (<1.0 NEG); SCL-70 ANTIBODY <1.0 NEG AI (<1.0 NEG); SJOGREN'S ANTIBODY (SS-A) <1.0 NEG AI (<1.0 NEG); SM ANTIBODY <1.0 NEG AI (<1.0 NEG); SS-B <1.0 NEG AI (<1.0 NEG)
[2020-11-20 16:18] LABS: Cyclic Citrullinated Peptide <16 UNITS; THYROID PEROXIDASE ANTIBODIES <1 IU/mL (<9)
[2020-11-26 22:53] LABS: DNA AB (DS) CRITHIDIA,IFA NEGATIVE (NEGATIVE)
== END 2020-11-19 09:43 | disposition home or self-care (01) ==
LOC: LAB 09:43
PROVIDERS: PCP Family Medicine Adult Medicine; Visit Provider Internal Medicine Rheumatology
DX: M19.90 Unspecified osteoarthritis, unspecified site (principal); M79.7 Fibromyalgia; Z79.899 Other long term (current) drug therapy
CPT/HCPCS: 36415; 80076; 82565; 85025; 85651; 86140; 86160; 86162; 86235; 86255; 86376; 86431

== ENCOUNTER → 2020-12-29 15:06 | Outpatient (BNVA) | payer MEDICAID, SELFPAY | PROVIDERS: PCP Family Medicine Adult Medicine; Visit Provider Internal Medicine Rheumatology | DX: I73.00 Raynaud's syndrome without gangrene (principal); M19.90 Unspecified osteoarthritis, unspecified site; M79.7 Fibromyalgia; Z79.899 Other long term (current) drug therapy; F17.210 Nicotine dependence, cigarettes, uncomplicated | CPT/HCPCS: 99214 ==

== ENCOUNTER → 2021-01-06 07:51 | Outpatient (BNVA) | payer MEDICAID, SELFPAY | PROVIDERS: PCP Family Medicine Adult Medicine; Visit Provider Nurse Practitioner | DX: F43.12 Post-traumatic stress disorder, chronic (principal) | CPT/HCPCS: 99214 ==

== ENCOUNTER → 2021-01-12 08:36 | Outpatient (BNVA) | payer MEDICAID, SELFPAY | PROVIDERS: PCP Family Medicine Adult Medicine; Visit Provider Counselor Professional | DX: F43.12 Post-traumatic stress disorder, chronic (principal) | CPT/HCPCS: 90834 ==

== ENCOUNTER → 2021-01-26 08:22 | Outpatient (BNVA) | payer MEDICAID, SELFPAY | PROVIDERS: PCP Family Medicine Adult Medicine; Visit Provider Counselor Professional | DX: F43.12 Post-traumatic stress disorder, chronic (principal) | CPT/HCPCS: 90832 ==

== ENCOUNTER → 2021-02-10 10:21 | Outpatient (BNVA) | payer MEDICAID, SELFPAY | PROVIDERS: PCP Family Medicine Adult Medicine; Visit Provider Internal Medicine Rheumatology | DX: F43.12 Post-traumatic stress disorder, chronic | CPT/HCPCS: 90832; 36415; 80076; 82565; 85025; 86140 ==

== ENCOUNTER → 2021-03-04 08:30 | Outpatient (BNVA) | payer MEDICAID, SELFPAY | PROVIDERS: PCP Family Medicine Adult Medicine; Visit Provider Nurse Practitioner | DX: F43.12 Post-traumatic stress disorder, chronic (principal) | CPT/HCPCS: 99214 ==

== ENCOUNTER → 2021-03-31 14:11 | Outpatient (BNVA) | payer MEDICAID, SELFPAY | PROVIDERS: PCP Family Medicine Adult Medicine; Visit Provider Internal Medicine Rheumatology | DX: I73.00 Raynaud's syndrome without gangrene (principal); M06.041 Rheumatoid arthritis without rheumatoid factor, right hand; M06.042 Rheumatoid arthritis without rheumatoid factor, left hand; M79.7 Fibromyalgia; B02.9 Zoster without complications; M51.16 Intervertebral disc disorders with radiculopathy, lumbar region; F17.210 Nicotine dependence, cigarettes, uncomplicated | CPT/HCPCS: 99214 ==

== ENCOUNTER → 2021-04-13 12:56 | Outpatient (BNVA) | payer MEDICAID, SELFPAY | PROVIDERS: PCP Family Medicine Adult Medicine; Visit Provider Counselor Professional | DX: F43.12 Post-traumatic stress disorder, chronic (principal) | CPT/HCPCS: 90834 ==

== ENCOUNTER → 2021-04-27 09:37 | Outpatient (BNVA) | payer MEDICAID, SELFPAY | PROVIDERS: PCP Family Medicine Adult Medicine; Visit Provider Counselor Professional | DX: F43.12 Post-traumatic stress disorder, chronic (principal); F41.8 Other specified anxiety disorders | CPT/HCPCS: 90832 ==

== ENCOUNTER 2021-04-30 15:20 | Outpatient (CLI) | payer MEDICAID, SELFPAY ==
--- NOTE | 2021-04-30 15:24 | MM_ITS ---
WS: [id number] BILATERAL SCREENING DIGITAL MAMMOGRAM WITH CAD HISTORY: SCREENING COMPARISON: 08/03/2017 and 08/08/2014 Bilateral CC and MLO views submitted. Computer aided detection analyzed. Breast composition: There are scattered areas of fibroglandular density. No suspicious masses, microc alcifications or architectural distortion. Benign calcifications in each breast. MM/[place] [id number] IMPRESSION: BI-RADS: 2-Benign FOLLOW UP: 1 Year Follow-up
== END 2021-04-30 15:21 | disposition home or self-care (01) ==
LOC: RADSHAW 15:23
PROVIDERS: PCP Family Medicine Adult Medicine; Visit Provider Obstetrics & Gynecology
DX: Z12.31 Encounter for screening mammogram for malignant neoplasm of breast (principal)
CPT/HCPCS: 77067

== ENCOUNTER → 2021-05-04 08:13 | Outpatient (BNVA) | payer MEDICAID, SELFPAY | PROVIDERS: PCP Family Medicine Adult Medicine; Visit Provider Nurse Practitioner | DX: F43.12 Post-traumatic stress disorder, chronic (principal) | CPT/HCPCS: 99214 ==

== ENCOUNTER → 2021-05-05 09:12 | Outpatient (BNVA) | payer MEDICAID, SELFPAY | PROVIDERS: PCP Family Medicine Adult Medicine; Visit Provider Internal Medicine Rheumatology | DX: Z79.899 Other long term (current) drug therapy (principal); I73.00 Raynaud's syndrome without gangrene | CPT/HCPCS: 36415; 80076; 82565; 85025; 86140 ==

== ENCOUNTER → 2021-05-12 08:22 | Outpatient (BNVA) | payer MEDICAID, SELFPAY | PROVIDERS: PCP Family Medicine Adult Medicine; Visit Provider Counselor Professional | DX: F43.12 Post-traumatic stress disorder, chronic (principal) | CPT/HCPCS: 90832 ==

== ENCOUNTER → 2021-06-01 07:55 | Outpatient (BNVA) | payer MEDICAID, SELFPAY | PROVIDERS: PCP Family Medicine Adult Medicine; Visit Provider Counselor Professional | DX: F43.12 Post-traumatic stress disorder, chronic (principal); F41.8 Other specified anxiety disorders | CPT/HCPCS: 90832 ==

== ENCOUNTER → 2021-06-22 09:17 | Outpatient (BNVA) | payer MEDICAID, SELFPAY | PROVIDERS: PCP Family Medicine Adult Medicine; Visit Provider Counselor Professional | DX: F43.12 Post-traumatic stress disorder, chronic (principal); F41.8 Other specified anxiety disorders | CPT/HCPCS: 90832 ==

== ENCOUNTER → 2021-07-05 07:15 | Outpatient (BNVA) | payer MEDICAID, SELFPAY | PROVIDERS: PCP Family Medicine Adult Medicine; Visit Provider Counselor Professional | DX: F43.12 Post-traumatic stress disorder, chronic (principal); F41.8 Other specified anxiety disorders | CPT/HCPCS: 90832 ==

== ENCOUNTER → 2021-07-19 11:32 | Outpatient (BNVA) | payer MEDICAID, SELFPAY | PROVIDERS: PCP Family Medicine Adult Medicine; Visit Provider Nurse Practitioner | DX: F43.12 Post-traumatic stress disorder, chronic (principal) | CPT/HCPCS: 99214 ==

== ENCOUNTER → 2021-07-21 12:45 | Outpatient (BNVA) | payer MEDICAID, SELFPAY | PROVIDERS: PCP Family Medicine Adult Medicine; Visit Provider Internal Medicine Rheumatology | DX: M06.041 Rheumatoid arthritis without rheumatoid factor, right hand (principal); M06.042 Rheumatoid arthritis without rheumatoid factor, left hand; M19.90 Unspecified osteoarthritis, unspecified site | CPT/HCPCS: 36415; 80076; 82565; 85025; 86140 ==

== ENCOUNTER → 2021-08-16 07:27 | Outpatient (BNVA) | payer MEDICAID, SELFPAY | PROVIDERS: PCP Family Medicine Adult Medicine; Visit Provider Counselor Professional | DX: F43.12 Post-traumatic stress disorder, chronic (principal); F41.8 Other specified anxiety disorders | CPT/HCPCS: 90832 ==

== ENCOUNTER → 2021-09-01 10:01 | Outpatient (BNVA) | payer MEDICAID, SELFPAY | PROVIDERS: PCP Family Medicine Adult Medicine; Referring Provider Family Medicine Adult Medicine; Visit Provider Anesthesiology Pain Medicine | DX: G89.29 Other chronic pain (principal); M48.062 Spinal stenosis, lumbar region with neurogenic claudication; M51.17 Intervertebral disc disorders with radiculopathy, lumbosacral region; M51.16 Intervertebral disc disorders with radiculopathy, lumbar region; M47.816 Spondylosis without myelopathy or radiculopathy, lumbar region; M96.1 Postlaminectomy syndrome, not elsewhere classified; M79.604 Pain in right leg; M79.605 Pain in left leg; R20.0 Anesthesia of skin; R20.2 Paresthesia of skin; N18.2 Chronic kidney disease, stage 2 (mild); M62.830 Muscle spasm of back; F17.200 Nicotine dependence, unspecified, uncomplicated | CPT/HCPCS: 99214 ==

== ENCOUNTER → 2021-09-13 13:42 | Outpatient (BNVA) | payer MEDICAID, SELFPAY | PROVIDERS: PCP Family Medicine Adult Medicine; Visit Provider Anesthesiology Pain Medicine | DX: M51.16 Intervertebral disc disorders with radiculopathy, lumbar region (principal) | CPT/HCPCS: 64483; 64484; J1100; J3490 ==

== ENCOUNTER → 2021-09-22 11:03 | Outpatient (BNVA) | payer MEDICAID, SELFPAY | PROVIDERS: PCP Family Medicine Adult Medicine; Visit Provider Nurse Practitioner | DX: F43.12 Post-traumatic stress disorder, chronic (principal) | CPT/HCPCS: 99214 ==

== ENCOUNTER → 2021-10-11 10:54 | Outpatient (BNVA) | payer MEDICAID, SELFPAY | PROVIDERS: PCP Family Medicine Adult Medicine; Visit Provider Internal Medicine Rheumatology | DX: M06.041 Rheumatoid arthritis without rheumatoid factor, right hand (principal); M06.042 Rheumatoid arthritis without rheumatoid factor, left hand; M79.7 Fibromyalgia; Z79.899 Other long term (current) drug therapy; M54.9 Dorsalgia, unspecified; W19.XXXA Unspecified fall, initial encounter; Z71.85 Encounter for immunization safety counseling; Z79.52 Long term (current) use of systemic steroids | CPT/HCPCS: 99214 ==

== ENCOUNTER → 2021-10-13 10:04 | Outpatient (BNVA) | payer MEDICAID, SELFPAY | PROVIDERS: PCP Family Medicine Adult Medicine; Visit Provider Anesthesiology Pain Medicine | DX: G89.29 Other chronic pain (principal); M51.17 Intervertebral disc disorders with radiculopathy, lumbosacral region; M96.1 Postlaminectomy syndrome, not elsewhere classified; M51.16 Intervertebral disc disorders with radiculopathy, lumbar region; M47.816 Spondylosis without myelopathy or radiculopathy, lumbar region; N18.2 Chronic kidney disease, stage 2 (mild); R20.0 Anesthesia of skin; R20.2 Paresthesia of skin; M62.830 Muscle spasm of back; M79.604 Pain in right leg; M79.605 Pain in left leg | CPT/HCPCS: 99214 ==

== ENCOUNTER 2021-10-22 12:23 | Outpatient (CLI) | payer MEDICAID, SELFPAY ==
--- NOTE | 2021-10-22 12:30 | MR_ITS ---
WS: [id number] MRI LUMBAR SPINE NONCONTRAST TECHNIQUE: Sagittal T1, T2 and STIR imaging. Axial T1 and T2 imaging. CLINICAL INFORMATION: M48.062 - Spinal stenosis, lumbar region with neurogenic ... COMPARISON: MRI June 09, 2020 FINDINGS: Mild lumbar curve. No acute compression. No high-grade central canal stenosis. Partially visualized e rivas in the S3 vertebral body extending off the [id number]. This extends into the left greater perla n right sacral ala. Recommend further evaluation with MRI of the sacrum. This appears new since the p rior examination. L1-L2: Normal. L2-L3: Normal. L3-L4: Mild annular bulging with slight effacement of ventral thecal sac. Tiny right foraminal protru santos with mild right foraminal narrowing. Left foramen is patent. Mild facet arthropathy. L4-L5: Mild annular bulging with slight effacement of the ventral thecal sac. Slight narrowing of the right subarticular recess. Mild right and no significant left foraminal narrowing. Mild facet arthro juanis. L5-S1: Tiny shallow central protrusion. Slight effacement of ventral thecal sac. No nerve root imping ement. Mild facet arthropathy. Foramen are patent. Prior postoperative changes ACDF C5-6. Tiny central disc protrusion C4-5. MR/MR lumbar spine wo con* [id number] IMPRESSION: 1. Edema partially visualized in the S3 vertebral body extending into the left greater than right sacral ala extending off the [id number]. Recommend furth er evaluation with MRI of the sacrum. 2. Tiny shallow central protrusion L5-S1 without significant nerve root imping ement. 3. Small right foraminal protrusion L3-4 with mild right foraminal narrowing a nd slight contact of the exiting right L3 nerve root. This appears more promine nt compared to June 09, 2020. Tiny annular fissure. 4. Tiny right foraminal protrusion L4-5 with mild right foraminal narrowing. 5. Mild facet arthropathy L4-L5 and L5-S1.
== END 2021-10-22 12:24 | disposition home or self-care (01) ==
LOC: RAD 12:26
PROVIDERS: PCP Family Medicine Adult Medicine; Visit Provider Anesthesiology Pain Medicine
DX: M48.062 Spinal stenosis, lumbar region with neurogenic claudication (principal); R60.0 Localized edema; M51.27 Other intervertebral disc displacement, lumbosacral region; M51.26 Other intervertebral disc displacement, lumbar region; M47.816 Spondylosis without myelopathy or radiculopathy, lumbar region; M47.817 Spondylosis without myelopathy or radiculopathy, lumbosacral region
CPT/HCPCS: 72148

== ENCOUNTER → 2021-11-29 08:49 | Outpatient (BNVA) | payer MEDICAID, SELFPAY | PROVIDERS: PCP Family Medicine Adult Medicine; Visit Provider Nurse Practitioner | DX: F43.12 Post-traumatic stress disorder, chronic (principal) | CPT/HCPCS: 99214 ==

== ENCOUNTER → 2021-11-30 10:17 | Outpatient (BNVA) | payer MEDICAID, SELFPAY | PROVIDERS: PCP Family Medicine Adult Medicine; Visit Provider Anesthesiology Pain Medicine | DX: G89.29 Other chronic pain (principal); M51.17 Intervertebral disc disorders with radiculopathy, lumbosacral region; M51.16 Intervertebral disc disorders with radiculopathy, lumbar region; M47.816 Spondylosis without myelopathy or radiculopathy, lumbar region; M96.1 Postlaminectomy syndrome, not elsewhere classified; G60.8 Other hereditary and idiopathic neuropathies; R20.0 Anesthesia of skin; R20.2 Paresthesia of skin; N18.2 Chronic kidney disease, stage 2 (mild); M62.830 Muscle spasm of back; M79.604 Pain in right leg; M79.605 Pain in left leg; F17.210 Nicotine dependence, cigarettes, uncomplicated; Z79.891 Long term (current) use of opiate analgesic | CPT/HCPCS: 99215 ==

== ENCOUNTER → 2021-12-07 09:13 | Outpatient (BNVA) | payer MEDICAID, SELFPAY | PROVIDERS: PCP Family Medicine Adult Medicine; Visit Provider Nurse Practitioner Family | DX: I10 Essential (primary) hypertension (principal); F17.210 Nicotine dependence, cigarettes, uncomplicated | CPT/HCPCS: 99213 ==

== ENCOUNTER → 2021-12-21 13:06 | Outpatient (BNVA) | payer MEDICAID, SELFPAY | PROVIDERS: PCP Family Medicine Adult Medicine; Visit Provider Nurse Practitioner Family | DX: I10 Essential (primary) hypertension (principal); F17.200 Nicotine dependence, unspecified, uncomplicated | CPT/HCPCS: 99213 ==

== ENCOUNTER → 2022-02-10 14:54 | Outpatient (BNVA) | payer MEDICAID, SELFPAY | PROVIDERS: PCP Family Medicine Adult Medicine; Visit Provider Internal Medicine Rheumatology | DX: I73.00 Raynaud's syndrome without gangrene (principal); M06.041 Rheumatoid arthritis without rheumatoid factor, right hand; M06.042 Rheumatoid arthritis without rheumatoid factor, left hand; Z79.899 Other long term (current) drug therapy; M47.896 Other spondylosis, lumbar region; Z71.85 Encounter for immunization safety counseling | CPT/HCPCS: 99214 ==

== ENCOUNTER → 2022-03-08 13:10 | Outpatient (BNVA) | payer MEDICAID, SELFPAY | PROVIDERS: PCP Family Medicine Adult Medicine; Referring Provider Anesthesiology Pain Medicine; Visit Provider Specialist | DX: G62.89 Other specified polyneuropathies (principal) | CPT/HCPCS: 95909; 95911 ==

== ENCOUNTER → 2022-03-24 10:04 | Outpatient (BNVA) | payer MEDICAID, SELFPAY | PROVIDERS: PCP Family Medicine Adult Medicine; Referring Provider Anesthesiology Pain Medicine; Visit Provider Specialist | DX: G62.89 Other specified polyneuropathies (principal); M79.7 Fibromyalgia; F43.12 Post-traumatic stress disorder, chronic; I25.10 Atherosclerotic heart disease of native coronary artery without angina pectoris; R47.1 Dysarthria and anarthria; R26.89 Other abnormalities of gait and mobility; Z91.81 History of falling | CPT/HCPCS: 82607; 85651; 86160; 86162; 86235; 86255; 86334; 86376; 95861; 99204 ==

== ENCOUNTER → 2022-04-14 14:12 | Outpatient (BNVA) | payer MEDICAID, SELFPAY | PROVIDERS: PCP Family Medicine Adult Medicine; Visit Provider Family Medicine Adult Medicine | DX: M19.90 Unspecified osteoarthritis, unspecified site (principal); I10 Essential (primary) hypertension; I25.10 Atherosclerotic heart disease of native coronary artery without angina pectoris; Z79.899 Other long term (current) drug therapy; E66.9 Obesity, unspecified; N18.2 Chronic kidney disease, stage 2 (mild); R20.0 Anesthesia of skin; R20.2 Paresthesia of skin; M06.041 Rheumatoid arthritis without rheumatoid factor, right hand; M06.042 Rheumatoid arthritis without rheumatoid factor, left hand | CPT/HCPCS: 80053; 85025; 85651; 86140 ==

== ENCOUNTER 2022-05-11 14:53 | Outpatient (CLI) | payer MEDICAID, SELFPAY ==
[2022-05-11 15:15] LABS: Basophils # 0.1 10^3/uL (0.0-0.1); Basophils % 1.5 %; Eosinophils # 0.1 10^3/uL (0.0-0.8); Eosinophils % 1.5 %; Hematocrit 40.6 % (37.0-47.0); Hemoglobin 13.1 g/dL (11.5-15.3); Lymphocytes % 40.5 %; Mean Corpuscular HGB Conc 32.3 g/dL (30.0-36.0); Mean Corpuscular Volume 89.8 fl (81-99); Monocytes # 0.7 10^3/uL (0.2-0.9); Monocytes % 13.5 %; Neutrophils # 2.08 10^3/uL (1.8-7.7); Nucleated Red Blood Cells % 0 %; Platelet Count 201 10^3/cmm (130-400); Red Blood Count 4.52 10^6/uL (4.1-5.3); Red Cell Distribution Width 13.3 % (12.1-15.1); White Blood Count 4.8 10^3/uL (4.0-10.0)
[2022-05-11 15:49] LABS: Alanine Aminotransferase 27 U/L (0-33); Albumin Level 3.9 g/dL (3.5-5.2); Alkaline Phosphatase 203 U/L (35-105); Aspartate Amino Transferase 26 U/L (0-32); C Reactive Protein 9.1 mg/L (0.0-4.9); Globulin 2.3 g/dL (1.3-4.6); Glomerular Filtration Rate 87.5 mL/min (90-130); Total Bilirubin 0.3 mg/dL (0.15-1.2); Total Protein 6.2 g/dL (6.6-8.7)
== END 2022-05-11 14:54 | disposition home or self-care (01) ==
LOC: LAB 14:56
PROVIDERS: PCP Family Medicine Adult Medicine; Visit Provider Internal Medicine Rheumatology
DX: M06.041 Rheumatoid arthritis without rheumatoid factor, right hand (principal); M06.042 Rheumatoid arthritis without rheumatoid factor, left hand; Z79.899 Other long term (current) drug therapy; I25.118 Atherosclerotic heart disease of native coronary artery with other forms of angina pectoris; I10 Essential (primary) hypertension; E78.5 Hyperlipidemia, unspecified; I73.00 Raynaud's syndrome without gangrene; Z98.61 Coronary angioplasty status; R94.31 Abnormal electrocardiogram [ECG] [EKG]; F17.200 Nicotine dependence, unspecified, uncomplicated
CPT/HCPCS: 80076; 82565; 85025; 86140; 93005; 99214; 99215

== ENCOUNTER → 2022-05-18 12:46 | Outpatient (BNVA) | payer MEDICAID, SELFPAY | PROVIDERS: PCP Family Medicine Adult Medicine; Visit Provider Internal Medicine Rheumatology | DX: M06.041 Rheumatoid arthritis without rheumatoid factor, right hand (principal); M06.042 Rheumatoid arthritis without rheumatoid factor, left hand; M79.7 Fibromyalgia; Z79.899 Other long term (current) drug therapy; Z71.85 Encounter for immunization safety counseling; I73.00 Raynaud's syndrome without gangrene; M47.896 Other spondylosis, lumbar region | CPT/HCPCS: 99214 ==

== ENCOUNTER 2022-05-24 13:16 | Outpatient (CLI) | payer MEDICAID, SELFPAY ==
--- NOTE | 2022-05-24 13:00 | MR_ITS ---
WS: [id number] MRI HEAD WITHOUT CONTRAST TECHNIQUE: Sagittal T1, T2 axial, T2 axial FLAIR, axial and coronal T1 images, axial susceptibility w eighted imaging, axial diffusion weighted images, and coronal T2 images were obtained. CLINICAL INFORMATION: G62.9 - Polyneuropathy, unspecified COMPARISON: CT 8 FINDINGS: No evidence of restricted diffusion to suggest acute ischemia. Ventricular system and basal cisterns are patent. Minimal periventricular hazy white matter changes. Minimal parenchymal volume loss. Chelle l posterior fossa. Normal vascular flow voids at the skull base. No extra-axial fluid collections. No evidence of mass or mass effect. Paranasal sinuses are well aerated. Mastoid air cells well aerated. Normal posterior nasopharynx. Nor mal parapharyngeal fat. No hemosiderin on the susceptibly weighted images. Normal optic chiasm and pituitary infundibulum. Temporal lobes and hippocampal formations are normal in appearance. Normal cavernous sinuses and Meckel's cave. MR/MR head wo con* [id number] IMPRESSION: 1. No evidence of restricted diffusion to suggest acute ischemia. 2. Minimal hazy periventricular white matter changes nonspecific in a patient this age but can be seen with hypertension, diabetes, collagen vascular disease , small vessel disease, and possibly demyelinating disease. Minimal overall par enchymal volume loss. Recommend correlation with clinical history. 3. No hemosiderin on susceptibly weighted images. 4. Temporal lobes and hippocampal formations are normal in appearance. 5. No other suspicious findings.
[2022-05-24 14:39] LABS: Estmated Average Glucose 105; Hemoglobin A1C 5.3 % (4.0-6.0)
== END 2022-05-24 13:17 | disposition home or self-care (01) ==
LOC: RAD 13:17
PROVIDERS: PCP Family Medicine Adult Medicine; Visit Provider Specialist
DX: G62.9 Polyneuropathy, unspecified (principal); R20.0 Anesthesia of skin; R20.2 Paresthesia of skin
CPT/HCPCS: 36415; 70551; 83036; 84443

== ENCOUNTER 2022-05-24 13:16 | Outpatient (CLI) | payer MEDICAID, SELFPAY ==
--- NOTE | 2022-05-24 13:45 | MR_ITS ---
WS: [id number] MRA HEAD TECHNIQUE: Axial 3-D TOF images obtained with axial images and axial, sagittal, and coronal 2-D refor matted images. CLINICAL INFORMATION: R29.90 - Unspecified symptoms and signs involving the ner... COMPARISON: None. FINDINGS: Distal vertebral bodies are patent. Basilar artery is patent. Normal vascularity to the UNIT CLERK territory bilaterally. Both ICAs are patent at the skull base. Normal vascularity to the MARTA and MCA territories bilaterally . No evidence of high-grade proximal stenosis or aneurysm. No other suspicious abnormalities. MR/MR angio head con [id number] IMPRESSION: Normal intracranial MRA.
== END 2022-05-24 13:17 | disposition home or self-care (01) ==
LOC: RAD 13:17
PROVIDERS: PCP Family Medicine Adult Medicine; Visit Provider Specialist
DX: G62.9 Polyneuropathy, unspecified (principal); F41.8 Other specified anxiety disorders; G43.711 Chronic migraine without aura, intractable, with status migrainosus; G92.9 Unspecified toxic encephalopathy; T42.6X5A Adverse effect of other antiepileptic and sedative-hypnotic drugs, initial encounter
CPT/HCPCS: 70544; 99214

== ENCOUNTER 2022-07-19 07:41 | Outpatient (CLI) | payer MEDICAID, SELFPAY ==
--- NOTE | 2022-07-19 | ECG_ITS ---
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 Interpretive Statements NAME OF STUDY: LEXISCAN SESTAMIBI STRESS TEST INDICATION: Chest Pain, ASHD, PROCEDURE: At the baseline, the EKG revealed sinus bradycardia with a poor R wave progression. Possible old inferior wall IA. Some nonspecific T wave changes. The baseline heart was 56 bpm with a blood pressue of 105/71 mm of Hg Lexiscan was infused over a period of 20 seconds. A total of 0.4 milligrams of Lexiscan was infused. The stress phase was continued for a total of 5 minutes. Heart rate at the end of the stress phase was 73 bpm with a blood pressure of 98-62 mm of Hg. The EKG at the peak infusion revealed no significant changes. Sestamibi was injected 20 seconds after the Lexiscan infusion. Heart rate at the end of the recovery phase was 71 bpm with a blood pressure of 93/61 mm of Hg. CONCLUSION: 1. No significant EKG changes with the LexiScan infusion 2. No LexiScan induced chest pain or cardiac arrhythmia 3. Normal blood pressure and heart rate response 4. Sestamibi/sestamibi perfusion scan pending; see separate report. Electronically Signed On 07-19-2022 13:56:21 CDT by Peter Sanchez M.D. [id number]
[2022-07-19 07:56] VITALS: BMI 32.5
--- NOTE | 2022-07-19 07:56 | NMCV_ITS ---
NM carmelina perf SPECT r/s* [id number] Alex Malhotra Age: 51 Gender: F : 1970 Exam Date: 07/19/2022 07:56 Ordering Phys: Peter Sanchez MD ([email or web address]) Technologist: BREANNA Ya Exam Location: [facility] Indications: Chest pain STRESS TEST [facility] IMAGE PROTOCOL Rest/Stress 1 Lexiscan Day Radiopharmaceutical Dose (mCi) Administration Site Administered by Rest: Tc-99m 10.7 IV BREANNA Forde Sestamibi Stress:Tc-99m 32.9 IV BREANNA Ya Sestamibi Rest: 19-Jul-2022 60 Discovery 630 Stress: 19-Jul-2022 30 Discovery 630 0.4mg Lexiscan. Images obtained in supine and prone position. SPECT RESULTS Technical Quality: Excellent Raw Data Analysis: Breast attenuation, Normal Image Corrections: No attenuation or motion correction applied Summed Stress Score: 10 Summed Rest Score: 5 Summed Difference Score: 5 PERFUSION FINDINGS Moderate area of minimal to moderately decreased aseptic was noted in the basal and mid inferolateral, apical septal, apical inferior, apical lateral and LV apex. Some reversibility was noted in the basal inferolateral and apical regions, with the supine imaging. However with the prone imaging, no significant repolarization normalities were noted FUNCTIONAL RESULTS (calculated via Gated SPECT) Stress Image LV EF (%): 78 Stress EDV (mL):95 TID: 1.11 Stress ESV (mL):21 FUNCTIONAL FINDINGS: 1. Moderate area of minimal to moderate decreased tracer uptake in the inferolateral and apical regions with some reversibility suggesting myocardial scarring in the distribution of the left circumflex artery- predominantly, with some areas of ischemia. However because of the inconsistency with the supine imaging, the reliability is questionable. 2. Normal ejection fraction 78%. 3. LV wall motion analysis revealing no gross wall motion abnormalities. 4. Normal LV volume Compared to the study from 2019, the ischemic burden seems to increased slightly but appears to be in the same artery distribution. IMPRESSIONS Dr Peter Sanchez MD FAC (Electronically Signed) Final Date: 19 July 2022 12:32 S
[2022-07-19] MEDS: regadenoson 0.4 Mg/5 ml Syringe IVP (09:22)
[2022-07-19 09:39] VITALS: BP 92/60; PULSE 68
== END 2022-07-19 07:42 | disposition home or self-care (01) ==
LOC: CDL 07:42
PROVIDERS: PCP Family Medicine Adult Medicine; Visit Provider Internal Medicine Cardiovascular Disease
DX: R07.9 Chest pain, unspecified (principal); I25.10 Atherosclerotic heart disease of native coronary artery without angina pectoris; I25.9 Chronic ischemic heart disease, unspecified
CPT/HCPCS: 78452; 93017; A9500; J2785

== ENCOUNTER 2022-07-22 12:38 | Emergency (ER) | payer MEDICAID, SELFPAY ==
--- NOTE | 2022-07-22 12:43 | W.ED.CHESTPA ---
HPI - Chest Pain General: Chief Complaint: Chest Pain Stated Complaint: cp Time Seen by Provider: 07/22/22 12:42 History of Present Illness: Ms. Malhotra is a 51-year-old lady with history of hypertension, hyperlipidemia, tobaccoism, COPD, known CAD presenting to the emergency department due to chest pain. Onset of symptoms was subacute approximately 3 to 4 days ago initially started at rest. She has substernal chest pain that radiates down her left arm. She describes tightness and pressure. Symptoms at rest or mild to moderate however worsened with exertion. Mild associated diaphoresis. Symptoms are worse with deep inspiration or eating where she describes a glass feeling sharp stabbing pain in her chest. Overall course of symptoms has persisted. No other specific changes in health, exacerbating, or alleviating factors identified. Positive family history. Positive history of tobaccoism. Patient has hypertension, hyperlipidemia, known CAD Onset (ago): day(s) Timing of current episode: constant Onset: during rest Pain location: substernal Pain radiation: left arm and left shoulder Severity: moderate Quality: aching and heaviness Exacerbating factors: exertion, inspiration and eating Review of Systems General: Reports: 10 or more systems reviewed and unremarkable except in HPI and below PFSH ED PFSH: Medical History CAD (coronary artery disease) Currently on Plavix after [place] of st[place] [address] Kumari Cervical intraepithelial neoplasia grade 2 Cervical post-laminectomy syndrome 04/05/2016 Dr. Alma Harvey C5-C6 ACDFF Chronic back pain greater than 3 months duration Colon polyps Needs colonoscopy in 2019 COPD (chronic obstructive pulmonary disease) Started smoking at age 18, 1ppd Fibromyalgia GERD (gastroesophageal reflux disease) High risk medication use Inflammatory arthritis Lupus Possibly has lupus and is currently undergoing evaluation by fertilizing machine operator Dr. Pepper in [place] and had an appointment with him in March. 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 Alma Harvey C5-C7 ACDFF Hx of right coronary artery stent placement 2017 Dr Kumari at [facility]. S/P cholecystectomy Open procedure performed in 1989 at [facility] by Dr. Menon Status post colonoscopy with polypectomy (05/21/20) polyp - repeat in 5 years Status post hysteroscopy 05/21/2020--hysteroscopy D&C performed at [facility] by Dr. Love for MARTINEZ-pathology showed benign lower uterine segment epithelium and stroma. Status post LEEP (loop electrosurgical excision procedure) of cervix 05/21/2020---LEEP procedure performed at time of hysteroscopy for ESVIN-[address] Love at [facility]. Pathology showed HPV changes and chronic inflammation with negative margins. Post LEEP ECC showed benign endocervical tissue, Family History Grandfather Heart disease maternal and paternal Grandmother Heart disease maternal and paternal Mother Diabetes Hypertension Hyperlipidemia Sister Hypertension Thyroid condition Father CAD (coronary artery disease), Onset Age: 50 Other Cancer Chronic kidney disease (CKD) Lung disease Lupus Rheumatoid arthritis Stroke Denies family history of Clotting disorder Suicide Anesthesia complication Bleeding disorder Social History Smoking and tobacco status: current every day smoker cigarettes Smoking risk assessment/counseling performed?: No Alcohol intake: never Desire information about alcohol rehabilitation?: No Counseling given: No Desire information about substance/drug rehabilitation?: No Counseling given: No Adopted: No Caregiver/support person: No Lives independently: Yes Female Reproductive History: Date of last menstrual period: 08/24/19 Physical Exam Const: COMMON NORMALS: alert GENERAL APPEARANCE: cooperative and well developed HENMT: COMMON NORMALS: normocephalic and atraumatic HEAD & SCALP: normocephalic and atraumatic Eye: COMMON NORMALS: conjunctivae normal CONJUNCTIVA: Yes conjunctivae normal SCLERA: sclerae normal Neck/C-Spine: COMMON NORMALS: supple GENERAL: Yes trachea midline Resp: COMMON NORMALS: normal respiratory effort EFFORT & INSPECTION: Yes able to speak in complete sentences AUSCULTATION: diminished lung sounds Cardio: COMMON NORMALS: regular rate and regular rhythm RATE: regular rate RHYTHM: regular rhythm GI: COMMON NORMALS: Soft to palpation PALPATION: Yes Soft to palpation and No Tenderness to palpation present (GI) Extremity: GENERAL: Yes normal exam except as noted and No edema Neuro: COMMON NORMALS: moves all extremities SENSORIUM/ORIENTATION: Yes alert and No Orientation impaired Psych: COMMON NORMALS: mental status grossly normal and Normal thought process present THOUGHT PROCESS: Normal thought process present Course Vital Signs: Vital signs: Vital Signs Pulse Rate 61 07/22/22 16:31 Respiratory Rate 18 07/22/22 16:31 Blood Pressure 104/68 07/22/22 16:31 Pulse Oximetry 97 07/22/22 16:31 Oxygen Delivery Me thod 07/22/22 14:51 MDM - Chest Pain Medical Decision Making 51-year-old lady presenting to the emergency department due to chest pain. EKG notable for sinus rhythm with nonspecific ST segment abnormalities and interventricular conduction delay, no STEMI. Laboratory studies with unremarkable hematologic panel, metabolic panel without significant abnormality to explain symptoms. Delta troponin at 2 hours is negative. Given patient description of symptoms and unable to exclude patient by Wells/PERC D-dimer was obtained and elevated. Chest x-ray with no lobar consolidation or pneumothorax. CTA negative for pulmonary embolism. Mild groundglass bilaterally which may be related to poor inspiratory effort. Incidental finding of blush like enhancement which I believe is most likely related to recently administered medicine. Patient has not had hematemesis, no history of GI bleed, no change in stools and hemoglobin/vitals are satisfactory. Given recent abnormalities on the stress test I discussed the case with cardiology on-call and after discussion and comparison to prior cath report patient does not require inpatient management at this time but will require further outpatient evaluation. The results of ED evaluation were discussed with the patient including prescriptions and/or symptomatic cares (if applicable) including appropriate and responsible use, followup plan, and return precautions. The patient verbalized understanding and felt safe for discharge. Medical Records I reviewed the patient's medical records. Lab Data I reviewed the patient's lab results. : 07/22/22 13:10 07/22/22 13:10 Radiology Impressions Chest X-Ray 07/22/22 12:51 IMPRESSION: 1. Mild cardiac enlargement. No acute cardiopulmonary finding. Chest CTA 07/22/22 13:36 IMPRESSION: 1. No pulmonary embolism. 2. No pneumonia or adenopathy. 3. Mild groundglass attenuation bilaterally. May be difficult secondary to mild pneumonitis or poor inspiratory effort. 4. Focal area of blush-like enhancement along the greater curvature of the stomach. Differential includes a small medicinal tablet or focal gastric bleeding ulcer. Laboratory Results WBC 7.2 10^3/uL (4.0-10.0) 07/22/22 13:10 RBC 4.40 10^6/uL (4.1-5.3) 07/22/22 13:10 Hgb 12.8 g/dL (11.5-15.3) 07/22/22 13:10 Hct 39.4 % (37.0-47.0) 07/22/22 13:10 MCV 89.5 fl (81-99) 07/22/22 13:10 MCH 29.1 pg (28.0-34.0) 07/22/22 13:10 MCHC 32.5 g/dL (30.0-36.0) 07/22/22 13:10 RDW 15.0 % (12.1-15.1) 07/22/22 13:10 Plt Count 213 10^3/cmm (130-400) 07/22/22 13:10 MPV 10.4 fL (7.4-10.4) 07/22/22 13:10 Neut % (Auto) 39.9 % 07/22/22 13:10 Lymph % (Auto) 47.6 % 07/22/22 13:10 Wilkinson % (Auto) 10.8 % 07/22/22 13:10 Eos % (Auto) 0.6 % 07/22/22 13:10 Baso % (Auto) 1.0 % 07/22/22 13:10 Neut # (Auto) 2.87 10^3/uL (1.8-7.7) 07/22/22 13:10 Lymph # (Auto) 3.4 10^3/uL (0.8-4.8) 07/22/22 13:10 Wilkinson # (Auto) 0.8 10^3/uL (0.2-0.9) 07/22/22 13:10 Eos # (Auto) 0.0 10^3/uL (0.0-0.8) 07/22/22 13:10 Baso # (Auto) 0.1 10^3/uL (0.0-0.1) 07/22/22 13:10 Nucleated RBC % (auto) 0 % 07/22/22 13:10 Nucleated RBCs # 0.0 /100WBC 07/22/22 13:10 D-Dimer 1.35 ug/mIFEU (0-0.59) H 07/22/22 13:10 Sodium 137 mmol/L (136-145) 07/22/22 13:10 Potassium 4.4 mmol/L (3.5-5.1) 07/22/22 13:10 Chloride 101 mmol/L (98-107) 07/22/22 13:10 Carbon Dioxide 28 mmol/L (22-29) 07/22/22 13:10 Anion Gap 12.4 (5-19) 07/22/22 13:10 BUN 13 mg/dL (6-20) 07/22/22 13:10 Creatinine 0.8 mg/dL (0.5-0.9) 07/22/22 13:10 GFR Calculation 75.0 mL/min (90-130) L 07/22/22 13:10 Glucose 93 mg/dL (65-115) 07/22/22 13:10 Calculated Osmolality 284 mOsm/kg (285-295) L 07/22/22 13:10 Calcium 9.2 mg/dL (8.5-10.5) 07/22/22 13:10 Total Bilirubin 0.3 mg/dL (0.15-1.2) 07/22/22 13:10 AST 15 U/L (0-32) 07/22/22 13:10 ALT 17 U/L (0-33) 07/22/22 13:10 Alkaline Phosphatase 154 U/L (35-105) H 07/22/22 13:10 Troponin T Baseline 7 ng/L (0-10) 07/22/22 13:10 Troponin T 120 Minute 6.00 ng/L (0-10) 07/22/22 15:16 Delta Troponin T -1.0 ABS# (0-10) L 07/22/22 15:16 NT-Pro-B Natriuret Pep 26 pg/mL (0-125) 07/22/22 13:10 Total Protein 6.8 g/dL (6.6-8.7) 07/22/22 13:10 Albumin 3.6 g/dL (3.5-5.2) 07/22/22 13:10 Globulin 3.2 g/dL (1.3-4.6) 07/22/22 13:10 Lipase 30 U/L (13-60) 07/22/22 13:10 Discharge Plan Discharge Patient Disposition: Home Clinical Impression: Chest pain Condition: Stable Prescriptions: New Protonix 40 mg tablet,delayed release (DR/EC) 40 mg PO BID 14 Days Qty: 28 0RF No Action carvedilol 12.5 mg tablet 12.5 mg PO BID Qty: 60 5RF Rx Instructions: must administer with a meal/food aspirin 81 mg tablet,delayed release (DR/EC) 81 mg PO DAILY simethicone 125 mg capsule 125 mg PO TID PRN (Reason: abdominal distention or gas) Qty: 60 0RF baclofen 10 mg tablet 10 mg PO TID PRN (Reason: spasm) Qty: 60 0RF valsartan 160 mg tablet 160 mg PO BID Qty: 180 3RF tramadol 50 mg tablet 50 mg PO TID PRN (Reason: pain) Qty: 60 1RF Humira Pen 40 mg/0.8 mL pen injector kit 40 mg SUBCUT Q14D Qty: 2 3RF hydroxychloroquine 200 mg tablet 200 mg PO BID Qty: 60 3RF hydroxyzine HCl 25 mg tablet 25 mg PO TID PRN (Reason: anxiety) Qty: 90 2RF multivitamin [Daily Multi-Vitamin] Tablet 1 tab PO DAILY doxycycline hyclate 100 mg capsule 100 mg PO BID Qty: 30 0RF guaifenesin 600 mg tablet extended release 12hr 600 mg PO BID Qty: 30 5RF nitroglycerin 0.4 mg tablet, sublingual 0.4 mg SUBLINGUAL Q5M PRN (Reason: Chest Pain) Qty: 25 3RF clopidogrel [Plavix] 75 mg tablet 75 mg PO DAILY Qty: 90 3RF isosorbide mononitrate 60 mg tablet extended release 24 hr 60 mg PO BID Qty: 180 1RF folic acid 1 mg tablet 1 mg PO DAILY trazodone 50 mg tablet 50 mg PO BEDTIME PRN (Reason: sleep) ProAir HFA 90 mcg/actuation HFA aerosol inhaler 1 puff inhalation Q4H PRN (Reason: Shortness Of Breath Or Wheezing) Lamictal 100 mg tablet 100 mg PO DAILY Discharge Orders: Discharge ED (Routine); Ordered 07/22/22 Ordered By: Reese Patel Referrals: Andreas Sauceda MD [Primary Care Provider] - Discharge Diet: Usual diet Discharge Activity: Increase activity as tolerated Patient Instructions: Chest Pain (ED), Pain Management Activity Restrictions/Additional Instructions: Thank you for visiting the emergency department. You were seen and evaluated for chest pain. The exact cause of your chest pain is unclear however after discussion with cardiology and evaluation in the ED it does not require further inpatient evaluation at this time. Please be sure to attend your cardiology appointment as scheduled. Return to the emergency department for worsening symptoms or anything else that you are concerned about a feel needs emergency department evaluation. Coding Level of Care Code ED Technical Assistance Consultant for Luis Carlosg Fwd Exam Comprehensive
[2022-07-22 12:46] VITALS: BP 103/73; PULSE 69; RESP 15; O2SAT 98
--- NOTE | 2022-07-22 12:51 | XR_ITS ---
WS: [id number] Exam: XR chest 1V portable [id number] Date/Time of Exam: 07/22/2022 1:00 PM Reason For Exam: cp Comparison 09/19/2020. Mild cardiac enlargement. The lungs are clear and fully expanded. No pleural effusions. The mediastin um is normal in contour. Bony structures are intact. Fusion hardware partially visualized in the lowe r cervical spine. XR/XR chest 1V portable [id number] IMPRESSION: 1. Mild cardiac enlargement. No acute cardiopulmonary finding.
--- NOTE | 2022-07-22 12:54 | ECG_ITS ---
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 Measurements Intervals Lima Rate: 67 P: 28 MS: 171 QRS: -23 QRSD: 109 T: 11 QT: 393 QTc: 418 Interpretive Statements SINUS RHYTHM LOW QRS VOLTAGE IN PRECORDIAL LEADS [QRS DEFLECTION < 1.0 mV IN CHEST LEADS] MODERATE INTRAVENTRICULAR CONDUCTION DELAY MINIMAL VOLTAGE CRITERIA FOR LVH, CONSIDER NORMAL VARIANT Compared to ECG 09/19/2020 22:00:21 Low QRS voltage now present Intraventricular conduction delay now present Sinus bradycardia no longer present ST (T wave) deviation no longer present Electronically Signed On 07-22-2022 15:34:49 CDT by Geri Paul M.D. [id number]
[2022-07-22 13:19] LABS: Basophils # 0.1 10^3/uL (0.0-0.1); Eosinophils % 0.6 %; Hematocrit 39.4 % (37.0-47.0); Hemoglobin 12.8 g/dL (11.5-15.3); Lymphocytes # 3.4 10^3/uL (0.8-4.8); Lymphocytes % 47.6 %; Mean Corpuscular HGB Conc 32.5 g/dL (30.0-36.0); Mean Corpuscular Hemoglobin 29.1 pg (28.0-34.0); Mean Corpuscular Volume 89.5 fl (81-99); Mean Platelet Volume 10.4 fL (7.4-10.4); Monocytes # 0.8 10^3/uL (0.2-0.9); Monocytes % 10.8 %; Neutrophils # 2.87 10^3/uL (1.8-7.7); Neutrophils % 39.9 %; Nucleated Red Blood Cells % 0 %; Platelet Count 213 10^3/cmm (130-400); White Blood Count 7.2 10^3/uL (4.0-10.0)
[2022-07-22 13:21] VITALS: BP 117/74; PULSE 68; RESP 18; O2SAT 97
[2022-07-22] MEDS: aspirin 81 mg Chew Tablet 324 MG PO (13:24)
[2022-07-22 13:35] LABS: D Dimer 1.35 ug/mIFEU (0-0.59)
--- NOTE | 2022-07-22 13:36 | CT_ITS ---
WS: [id number] CT CHEST ANGIOGRAPHY WITH REFORMATS HISTORY: elevated ddimer, cp TECHNIQUE: Contiguous axial images are obtained through the chest during arterial injection of intrav enous contrast. Images are reconstructed to evaluate the pulmonary arteries. MIP imaging also reviewe d. All CT scans at [facility] use at least one of these dose optimization techniques: automat ed exposure control; mA and/or kV adjustment per patient size (includes targeted exams where dose is matched to clinical indication); or iterative reconstruction. CONTRAST: Omnipaque 350; 73 mL IV. DLP: 420.79 mGy.cm COMPARISON: 09/19/2020 Good opacification of the pulmonary arteries. No filling defects. Pulmonary artery is normal size. No RIGHT heart strain. Normal size aorta. Very mild groundglass attenuation throughout both lungs. No p ericardial or pleural effusion. No adenopathy. Small hiatal hernia. Prior cholecystectomy. No adrenal mass. Blush-like area of enhancement measuring 5 mm along the great er curvature of the stomach. CT/CT angio chest PE protcl [id number] IMPRESSION: 1. No pulmonary embolism. 2. No pneumonia or adenopathy. 3. Mild groundglass attenuation bilaterally. May be difficult secondary to mil d pneumonitis or poor inspiratory effort. 4. Focal area of blush-like enhancement along the greater curvature of the sto mach. Differential includes a small medicinal tablet or focal gastric bleeding ulcer.
[2022-07-22] MEDS: lidocaine 2% viscous 15 ML, aluminum-mag hydrox-simethicon 30 ML, sucralfate oral liq 1 GM PO (13:40)
[2022-07-22 13:41] LABS: Troponin(5th) Baseline 7 ng/L (0-10)
[2022-07-22 13:49] LABS: Alanine Aminotransferase 17 U/L (0-33); Albumin Level 3.6 g/dL (3.5-5.2); Alkaline Phosphatase 154 U/L (35-105); Anion Gap 12.4 (5-19); Aspartate Amino Transferase 15 U/L (0-32); Blood Urea Nitrogen 13 mg/dL (6-20); Calcium 9.2 mg/dL (8.5-10.5); Carbon Dioxide 28 mmol/L (22-29); Chloride 101 mmol/L (98-107); Globulin 3.2 g/dL (1.3-4.6); Glucose 93 mg/dL (65-115); Lipase 30 U/L (13-60); NT Pro B Type Natriuretic Pept 26 pg/mL (0-125); Osmolality Calculated 284 mOsm/kg (285-295); Potassium 4.4 mmol/L (3.5-5.1); Sodium 137 mmol/L (136-145); Total Bilirubin 0.3 mg/dL (0.15-1.2); Total Protein 6.8 g/dL (6.6-8.7)
[2022-07-22] MEDS: iohexol 350 mg/mL 100 mL Btl IV (14:37)
[2022-07-22 14:51] VITALS: BP 107/85; PULSE 63; RESP 18; O2SAT 97
--- NOTE | 2022-07-22 14:51 | ECG_ITS ---
[facility] Test Date: 2022-07-22 Pat Name: Alex Malhotra Department: Room: Gender: Female Emt I/99: : 1970 Requested By: Reese Patel Order Number: [id number] Joshua MD: Geri Paul M.D. Measurements Intervals Delta Rate: 60 P: 27 WV: 180 QRS: -21 QRSD: 106 T: 10 QT: 405 QTc: 406 Interpretive Statements SINUS RHYTHM LOW QRS VOLTAGE IN PRECORDIAL LEADS [QRS DEFLECTION < 1.0 mV IN CHEST LEADS] MODERATE VOLTAGE CRITERIA FOR LVH, CONSIDER NORMAL VARIANT [MEETS CRITERIA IN ONE OF: R(aVL), S(V1), R(V5), R(V5/V6)+S(V1)] INFERIOR MYOCARDIAL INFARCTION , PROBABLY OLD [40+ ms Q WAVE AND/OR ST/T ABNORMALITY IN II/aVF] Compared to ECG 07/22/2022 12:54:32 Myocardial infarct finding now present Intraventricular conduction delay no longer present Electronically Signed On 07-22-2022 15:35:06 CDT by Geri Paul M.D. [id number]
[2022-07-22 16:31] VITALS: BP 104/68; PULSE 61; RESP 18; O2SAT 97
== END 2022-07-22 16:32 | disposition home or self-care (01) ==
PROVIDERS: Emergency Provider Emergency Medicine; PCP Family Medicine Adult Medicine
DX: R07.9 Chest pain, unspecified (principal); Z79.82 Long term (current) use of aspirin; Z79.02 Long term (current) use of antithrombotics/antiplatelets; F17.210 Nicotine dependence, cigarettes, uncomplicated; I25.10 Atherosclerotic heart disease of native coronary artery without angina pectoris; J44.9 Chronic obstructive pulmonary disease, unspecified
CPT/HCPCS: 36415; 71045; 71275; 80053; 83690; 83880; 84484; 85025; 85378; 93005; 99285; Q9967

== ENCOUNTER → 2022-07-27 14:44 | Outpatient (BNVA) | payer MEDICAID, SELFPAY | PROVIDERS: PCP Family Medicine Adult Medicine; Visit Provider Internal Medicine Rheumatology | DX: I25.10 Atherosclerotic heart disease of native coronary artery without angina pectoris (principal); I10 Essential (primary) hypertension; M06.041 Rheumatoid arthritis without rheumatoid factor, right hand; M06.042 Rheumatoid arthritis without rheumatoid factor, left hand; Z79.899 Other long term (current) drug therapy; Z71.85 Encounter for immunization safety counseling; I73.00 Raynaud's syndrome without gangrene; M79.7 Fibromyalgia; M47.896 Other spondylosis, lumbar region | CPT/HCPCS: 99214 ==

== ENCOUNTER → 2022-08-01 11:52 | Outpatient (BNVA) | payer MEDICAID, SELFPAY | PROVIDERS: PCP Family Medicine Adult Medicine; Visit Provider Internal Medicine Cardiovascular Disease | DX: I10 Essential (primary) hypertension; Z79.899 Other long term (current) drug therapy; R58 Hemorrhage, not elsewhere classified; J44.9 Chronic obstructive pulmonary disease, unspecified; I25.118 Atherosclerotic heart disease of native coronary artery with other forms of angina pectoris; F17.200 Nicotine dependence, unspecified, uncomplicated; E78.5 Hyperlipidemia, unspecified | CPT/HCPCS: 36415; 80048; 85025; 85610; 86850; 86900; 99214 ==

== ENCOUNTER 2022-08-04 07:07 | Outpatient (CLI) | payer MEDICAID, SELFPAY ==
[2022-08-04] VITALS (33 sets, daily range): BP systolic 81–137; BP diastolic 55–83; PULSE 56–67; RESP 11–22; TEMP 36.6–36.8; O2SAT 95–100; BMI 32.7
[2022-08-04] MEDS: diphenhydrAMINE 50 mg Capsule PO (08:13)
--- NOTE | 2022-08-04 08:21 | W.PM.OPSUD ---
Surgery/Procedure H&P Update DATE OF PROCEDURE: August 04, 2022 DATE H&P PERFORMED: 08/01/22 H&P UPDATE INFORMATION: I have reviewed H&P completed within last 30 days, I have examined patient prior to procedure and No changes to prior documentation PREOP DIAGNOSIS: ASHD PRIMARY INDICATION FOR PROCEDURE: Chest pain, abnormal Myocardial perfusion imaging, history of CAD and previous PCI PLANNED PROCEDURE: Operation Date: 08/04/22 08:30 Proposed Procedures p [id number] Left Heart Catheterization R94.39,R93.1,I25.9(Left) - Peter Sanchez MD PATIENT REASSESSED PRIOR TO SEDATION, WITH NO CHANGE NOTED: Yes PHYSICAL EXAM: alert, oriented x 3, clear to auscultation bilaterally and regular rate & rhythm AIRWAY EVAL/ANESTHESIA PLAN: normal airway, see other exam findings, ASA III, Monitored Anesthesia, Local Anesthesia, Risks, benefits & alternatives of sedation and/or procedure discussed and Patient agrees to continue as planned
--- NOTE | 2022-08-04 08:30 | XACV_ITS ---
Exam Room: 2 Ht: 170 cm Wt: 95 kg BSA: 2.15 m2 Gender: Female : 1970 Any Known Allergies: Penicillins Exam Priority: Routine Procedure(s): Procedure Description: Diagnostic procedure Procedure Description: Left Heart Catheterization Procedure Description: Coronary Angiography Procedure Description: Pressure Wire Daniel CHAUDHRY; Diagnostic Cath Status: Elective Diagnostic Findings * The left main is a medium caliber vessel with no significant stenotic lesion. * The left tender descending artery is a medium caliber vessel which was found to have mild to moderate diffuse disease in the proximal to mid segment. At the junction of the mid to distal artery, there was a segmental narrowing of around 50%. The vascular diagonal branch was found to have an ostial narrowing of around 50%. The stented area of the mid segment of the artery was found to be widely patent. No significant stenotic lesions were noted.. * The left circumflex artery is a medium caliber highly tortuous vessel. The artery bifurcates proximally giving of 2 obtuse marginal branches. The stent in one of the obtuse mild branch was found to be widely patent. Proximal to the stent, there was around 20 to 30% eccentric narrowing. The second obtuse marginal artery also was found to have around 20 to 30% diffuse proximal narrowing. The circumflex artery before the bifurcation was found to have a segmental narrowing from 50%. * The right coronary artery is a medium caliber dominant vessel which was found to have around 30 to 40% diffuse irregular eccentric narrowing proximally. The mid and distal artery were found to have minimal intimal irregularities. The PDA and the PLV branches found to have mild diffuse disease. PCI Status: Elective Interventional Findings * IFR proximal CX 0.98. Conclusions 1. This 51-year-old white female with history of atherosclerotic heart disease, high blood pressure and dyslipidemia who is presenting with increasing episodes of chest pains. She had a Myocardial perfusion imaging which revealed areas of fixed with a small area of reversible defect in the distribution of the left circumflex artery. In view of her ongoing worsening of the symptoms and also history of previous PCI, in order to further evaluate the coronary status, a cardiac catheterization was recommended. Patient underwent left heart catheterization with left and right coronary angiogram today. The findings are as follows.. 2. Patent stents in the diagonal and obtuse marginal arteries. Mild to moderate diffuse disease in the other vessels. Mild to moderate diffuse coronary calcification in the proximal segment of all the 3 arteries. And 50% lesion in the proximal circumflex artery. LVEDP was 13 mmHg.. 3. I reviewed and discussed the cardiac catheterization data with the Dr. Hurley. In view of the patient's symptoms and the abnormal perfusion scanning, it was thought to be appropriate to consider IFR of the circumflex artery lesion. Dr. Hurley concurred with this plan and took over further management of this patient at this point. For further details, please refer to the report by Dr. Hurley.. Diagnostic RX Recommendation: other cardiac therapy w/o CABG/PCI LV EDP: 13 mmHg Left Ventriculography Findings: * LV gram was not performed. LVEDP was 13 mmHg. Pressures Phase:Rest AO : 111 / 79 ( 95 ) @ 9:11:00 AM 122 / 66 ( 91 ) @ 9:22:00 AM 119 / 65 ( 89 ) @ 9:23:00 AM 113 / 72 ( 91 ) @ 9:35:00 AM LV : 119 / 9 / 10 @ 9:22:00 AM 121 / -6 / 7 @ 9:22:00 AM 124 / -4 / 13 @ 9:22:00 AM 124 / -5 / 12 @ 9:22:00 AM Valves Phase:DefaultPhase AV : 2.0 @ 10:05:58 AM AV Mean Gradient: 12.0 @ 10:05:58 AM Clinical Evaluation EBL: 5mL-10mL Procedural Details Procedure Consent Obtained. Admit Source: Out Patient. Pre-Procedure Time Out. Identified patient by full name and date of as verbalized by the patient/guarantor. Does the consent match the physician's order: Yes. Accurate & Complete Informed Consent: Yes. Inpatient/Outpatient History & Physical on Chart: Yes. If H&P is completed, is and addenduem needed: No; If yes, is the addendum complete: N/A. Visualize and Verify Site with Patient/Guarantor: N/A. Relevant Radiology Images available: Yes. The risks, benefits, and alternatives of sedation and/or procedure were discussed by physician. The patient agrees to continue. Procedure started. Correct patient, site and procedure confirmed by cath team. Current diagnosis: Chest Pain. PERRLA. Strong, equal hand hose inspector and patcher bilaterally. Lungs clear x 5 lobes. IV Site on Arrival: 20 gauge in the right anticubital. IV Fluids: 0.9% NaCl at KVO. 0 mL infused prior to microbiology lab assistant. Pre Procedural Pulses: bilateral radial was 3+. Pre Procedural Pulses: bilateral posterior tibial was 2+. Pre Procedural Pulses: bilateral dorsalis pedis was 2+. Oxygen started at 2liters/min via nasal canula. right groin was prepped with chloroprep then draped in the usual sterile fashion. Physician notified. Baseline sample Acquired. HR: 64 BPM. [facility] Clinical Fraility Score: 3: Managing Well. Public Address Servicer Indications: Worsening Angina. Chest Pain Symptom Assessment: Typical Angina Symptoms. Cardiovascular Instability: No,. Physician arrived. Physician scrubbed in. Immediate Pre-Procedure Time Out. Correct Patient: Yes; Correct Procedure: Yes; Correct Site: Yes; Correct Patient Position: Yes; Correct Supplies: Yes; Dried Flammable Prep: Yes; Blood Products Available: N/A;. Lidocaine 1% infiltrated to the right groin. Arterial access obtained with micropuncture set. A 5 lao JL4 catheter in over wire. exchange wire out. Multiple views taken of left coronary artery. Catheter removed over the standard wire. A 5 lao JR4 catheter in over wire. exchange wire out. Multiple views taken of right coronary artery. Catheter out. wire out. dr hurley called to view films. A 5 lao Angled Pig catheter in over wire. EDP Sample taken: LV 119/9,10; HR: 86 BPM; SpO2: 100%. EDP Sample taken: LV 121/-7,7; HR: 89 BPM; SpO2: 99%. EDP Sample taken: LV 124/-5,13; HR: 60 BPM; SpO2: 100%. Pullback taken: LV 124/-6,12; AO 122/66(91); Mean: 12mmHg, Peak to Peak: 2mmHg, SEP: 20sec/min; HR: 77 BPM; SpO2: 99%. catheter removed over wire. Side port of sheath attached to Normal Saline flush at KVO to maintain patency. Sheath upsized to a 6 Fr. 6 lao XB 3 SH guide catheter was inserted over the wire. FFR guidewire was advanced through the guide catheter to lesion in the prox Circ. IFR measurement obtained. results = 0.98. IFR wire out. Guide catheter out. Sheath(s) removed and manual pressure held until hemostasis was achieved. Sterile 4x4 and Op-site applied to the puncture site. No oozing or hematoma noted. Post sheath removal instructions were given and the patient verbalized understanding. Post Procedure: Pulses reassessed and unchanged. PERRLA. Strong, equal hand hose inspector and patcher bilaterally. No VTE prophylaxis required. Medication's Wasted: Lidocaine 1% = 10 mL. Medication's Wasted: Heparin = 4500 units. Total IV fluids: 350 mL. Post-op diagnosis: chest pain. Complications: . Estimated blood loss: 5mL-10mL. Responsiveness - Normal response to verbal stimuli; alert and oriented, PERRLA. Airway - Unaffected, no intervention required; spontaneous ventilation. Circulation: W/N/L, pulses unchanged. Nausea/Vomiting: No. Procedure completed. Patient transferred by bed to CPRU. Vital chart was stopped. exchange wire out. Physician scrubbed in. exchange wire out. Access Site Site: Right Femoral artery Sheath Size: 5 Fr Hemostasis Success: Unsuccessful Procedure Medications Start: 8:58 AM Stop: 8:58 AM Medication: Versed Amount: 1 mg Start: 8:58 AM Stop: 8:58 AM Medication: Fentanyl Amount: 50 mcg Route: I.V. Start: 9:10 AM Stop: 9:10 AM Medication: 0.9% Saline Amount: 250 ml Route: I.V. bolus Start: 9:13 AM Stop: 9:13 AM Medication: Versed Amount: 1 mg Route: I.V. Start: 9:13 AM Stop: 9:13 AM Medication: Fentanyl Amount: 50 mcg Route: I.V. Start: 9:16 AM Stop: 9:16 AM Medication: Heparin Amount: 1500 units Route: I.V. Start: 9:32 AM Stop: 9:32 AM Medication: Versed Amount: 2 mg Route: I.V. I, the attending physician, have reviewed and verified all procedure medications. Yes, all medications given per verbal order History/Risk Factors Hypertension: Yes Dyslipidemia: Yes Peripheral Arterial Disease (PAD): No Myocardial Infarction (MD): No Obesity: No Tobacco Use: Current/Recent(w/in 1 year) Prior Interventions PCI: Yes CABG: No Valve Surgery: No Date of PCI: 07/31/2017 Report Signatures Diagnostic Workflow Finalized by Dr Peter Sanchez MD [facility] on 08/04/2022 08:57 PM Interventional Workflow Finalized by Dr. Garrett Hurley MD on 08/04/2022 10:07 AM
--- NOTE | 2022-08-04 10:12 | SUR.PHASEII ---
Patient has 0.9% NS infusing at 100 ml/hr post cath as ordered.
--- NOTE | 2022-08-04 13:55 | SUR.PHASEII ---
TRANSFER Patient transferred to U 111-2. Report to Garrett RN. Transferred via bed. No changes in assesment.
[2022-08-04] MEDS: TRAMadol 50 mg Tablet PO (16:32)
--- NOTE | 2022-08-04 18:12 | PC.NURSE ---
Discharge Note Patient discharged to home via private vehicle accompanied by family. Discharge instructions reviewed with patient and/or front office representative. Mobile pharmacy medications and/or prescriptions provided. Belongings/home medications returned.
== END 2022-08-04 17:32 | disposition home or self-care (01) ==
LOC: CCL 07:08 → CSU 15:58
PROVIDERS: Internal Medicine Cardiovascular Disease; PCP Family Medicine Adult Medicine; Visit Provider Internal Medicine Cardiovascular Disease
DX: I25.10 Atherosclerotic heart disease of native coronary artery without angina pectoris (principal); E78.5 Hyperlipidemia, unspecified; R93.1 Abnormal findings on diagnostic imaging of heart and coronary circulation; I25.9 Chronic ischemic heart disease, unspecified; I12.9 Hypertensive chronic kidney disease with stage 1 through stage 4 chronic kidney disease, or unspecified chronic kidney disease; N18.2 Chronic kidney disease, stage 2 (mild); J44.9 Chronic obstructive pulmonary disease, unspecified; K21.9 Gastro-esophageal reflux disease without esophagitis; E66.9 Obesity, unspecified; Z68.32 Body mass index [BMI] 32.0-32.9, adult; Z79.82 Long term (current) use of aspirin; M79.7 Fibromyalgia
CPT/HCPCS: 36415; 86850; 86900; 93458; 93571; 96360; 96361; 99152; 99153; C1769; C1887; C1894; J1644; J2250; J3010; J7030; Q0163; Q9967

== ENCOUNTER 2022-08-04 18:57 | Emergency (ER) | payer MEDICAID, SELFPAY ==
[2022-08-04 18:52] VITALS: BP 138/99; PULSE 71; RESP 22; TEMP 36.8; O2SAT 96; BMI 31.3
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
--- NOTE | 2022-08-04 18:59 | ECG_ITS ---
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 Measurements Intervals [place] Rate: 69 P: 61 VT: 173 QRS: 3 QRSD: 106 T: 39 QT: 403 QTc: 432 Interpretive Statements SINUS RHYTHM LOW QRS VOLTAGE IN PRECORDIAL LEADS [QRS DEFLECTION < 1.0 mV IN CHEST LEADS] POSSIBLE ANTERIOR MYOCARDIAL INFARCTION , PROBABLY OLD [30 ms Q WAVE IN V3/V4, OR R < 0.2 mV IN V4] Compared to ECG 07/22/2022 14:55:28 No significant changes Electronically Signed On 08-06-2022 14:04:53 GENERAL LITHOGRAPHIC WORKER by Peter Sanchez M.D. [id number]
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
[2022-08-04 19:24] VITALS: BP 158/101; PULSE 66; RESP 19; O2SAT 97
[2022-08-04] MEDS: sodium chloride 0.9% 1,000 ML 999 ML IV (19:37)
[2022-08-04 19:54] VITALS: BP 163/99; PULSE 72; RESP 21; O2SAT 99
[2022-08-04 19:58] LABS: Basophils # 0.1 10^3/uL (0.0-0.1); Basophils % 0.9 %; Eosinophils # 0.1 10^3/uL (0.0-0.8); Eosinophils % 1.4 %; Hematocrit 33.5 % (37.0-47.0); Hemoglobin 10.7 g/dL (11.5-15.3); Lymphocytes # 2.6 10^3/uL (0.8-4.8); Mean Corpuscular HGB Conc 31.9 g/dL (30.0-36.0); Mean Corpuscular Hemoglobin 29.2 pg (28.0-34.0); Mean Corpuscular Volume 91.3 fl (81-99); Mean Platelet Volume 10.3 fL (7.4-10.4); Monocytes # 0.7 10^3/uL (0.2-0.9); Monocytes % 8.4 %; Neutrophils # 5.18 10^3/uL (1.8-7.7); Neutrophils % 58.7 %; Nucleated Red Blood Cells % 0 %; Platelet Count 192 10^3/cmm (130-400); Red Blood Count 3.67 10^6/uL (4.1-5.3); Red Cell Distribution Width 15.2 % (12.1-15.1); White Blood Count 8.8 10^3/uL (4.0-10.0)
[2022-08-04 20:09] LABS: INR 1.01 (0.8-1.2)
[2022-08-04 20:16] LABS: Alanine Aminotransferase 15 U/L (0-33); Albumin Level 2.8 g/dL (3.5-5.2); Alkaline Phosphatase 110 U/L (35-105); Aspartate Amino Transferase 22 U/L (0-32); Blood Urea Nitrogen 13 mg/dL (6-20); Calcium 8.1 mg/dL (8.5-10.5); Carbon Dioxide 25 mmol/L (22-29); Chloride 103 mmol/L (98-107); Globulin 2.7 g/dL (1.3-4.6); Glomerular Filtration Rate 65.5 mL/min (90-130); Glucose 96 mg/dL (65-115); Osmolality Calculated 278 mOsm/kg (285-295); Sodium 134 mmol/L (136-145); Total Bilirubin 0.2 mg/dL (0.15-1.2); Total Protein 5.5 g/dL (6.6-8.7)
[2022-08-04 20:36] LABS: Anion Gap 9.6 (5-19); Potassium 3.6 mmol/L (3.5-5.1)
[2022-08-04 23:30] VITALS: BP 163/99; PULSE 72; RESP 21; O2SAT 99
--- NOTE | 2022-08-05 08:21 | DCPLANNER ---
Addendum entered by Sapna Lozano 08/17/22 09:39: Patient had a follow up appointment scheduled for 08.09.22 at ortho - patient did attend appointment. Original Note: funeral location manager had message to schedule a follow up appointment for patient with ortho. funeral location manager sent patients information to the front office staff at ortho. Patients information will be printed and reviewed. Clinic will call patient with appointment information.
== END 2022-08-04 20:06 | disposition home or self-care (01) ==
PROVIDERS: Emergency Provider Emergency Medicine; PCP Family Medicine Adult Medicine
DX: S12.691A Other nondisplaced fracture of seventh cervical vertebra, initial encounter for closed fracture (principal); Z79.02 Long term (current) use of antithrombotics/antiplatelets; Z79.82 Long term (current) use of aspirin; I25.10 Atherosclerotic heart disease of native coronary artery without angina pectoris; J44.9 Chronic obstructive pulmonary disease, unspecified; V89.2XXA Person injured in unspecified motor-vehicle accident, traffic, initial encounter
CPT/HCPCS: 70450; 70486; 71260; 72125; 73562; 74177; 80053; 85025; 85610; 93005; 96360; 99285; J7030; Q9967

== ENCOUNTER 2022-08-09 06:00 | Outpatient (CLI) | payer MEDICAID, SELFPAY | END 2022-08-09 06:01 | disposition home or self-care (01) | LOC: SPT 08-10 09:52 | PROVIDERS: PCP Family Medicine Adult Medicine; Visit Provider Physician Assistant | DX: Z46.89 Encounter for fitting and adjustment of other specified devices (principal); S12.9XXD Fracture of neck, unspecified, subsequent encounter; X58.XXXD Exposure to other specified factors, subsequent encounter | CPT/HCPCS: L0172 ==

== ENCOUNTER → 2022-08-09 15:36 | Outpatient (BNVA) | payer MEDICAID, SELFPAY | PROVIDERS: PCP Family Medicine Adult Medicine; Referring Provider Emergency Medicine; Visit Provider Physician Assistant | DX: S12.9XXA Fracture of neck, unspecified, initial encounter (principal); S22.000A Wedge compression fracture of unspecified thoracic vertebra, initial encounter for closed fracture; V89.2XXA Person injured in unspecified motor-vehicle accident, traffic, initial encounter | CPT/HCPCS: 99203 ==

== ENCOUNTER 2022-08-11 16:13 | Outpatient (CLI) | payer MEDICAID, SELFPAY ==
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
== END 2022-08-11 16:14 | disposition home or self-care (01) ==
LOC: RAD 16:15
PROVIDERS: PCP Family Medicine Adult Medicine; Visit Provider Physician Assistant
DX: S12.9XXA Fracture of neck, unspecified, initial encounter (principal); M48.54XA Collapsed vertebra, not elsewhere classified, thoracic region, initial encounter for fracture; M50.221 Other cervical disc displacement at C4-C5 level; V89.2XXA Person injured in unspecified motor-vehicle accident, traffic, initial encounter
CPT/HCPCS: 72141; 72146

== ENCOUNTER → 2022-08-12 09:12 | Outpatient (BNVA) | payer MEDICAID, SELFPAY | PROVIDERS: PCP Family Medicine Adult Medicine; Visit Provider Physician Assistant | DX: S22.029D Unspecified fracture of second thoracic vertebra, subsequent encounter for fracture with routine healing (principal); S22.039D Unspecified fracture of third thoracic vertebra, subsequent encounter for fracture with routine healing; S22.049D Unspecified fracture of fourth thoracic vertebra, subsequent encounter for fracture with routine healing; X58.XXXD Exposure to other specified factors, subsequent encounter | CPT/HCPCS: 99213 ==

== ENCOUNTER → 2022-08-30 13:09 | Outpatient (BNVA) | payer MEDICAID, SELFPAY | PROVIDERS: PCP Family Medicine Adult Medicine; Visit Provider Physician Assistant | DX: S12.9XXA Fracture of neck, unspecified, initial encounter (principal); S22.000A Wedge compression fracture of unspecified thoracic vertebra, initial encounter for closed fracture; S13.4XXA Sprain of ligaments of cervical spine, initial encounter | CPT/HCPCS: 99213 ==

== ENCOUNTER → 2022-09-27 14:18 | Outpatient (BNVA) | payer MEDICAID, SELFPAY | PROVIDERS: PCP Family Medicine Adult Medicine; Visit Provider Physician Assistant | DX: S12.9XXA Fracture of neck, unspecified, initial encounter (principal); S22.040A Wedge compression fracture of fourth thoracic vertebra, initial encounter for closed fracture; M25.512 Pain in left shoulder; V89.2XXA Person injured in unspecified motor-vehicle accident, traffic, initial encounter; M50.221 Other cervical disc displacement at C4-C5 level; Z98.1 Arthrodesis status | CPT/HCPCS: 72040; 72070; 99213 ==

== ENCOUNTER 2022-10-07 13:47 | Emergency (ER) | payer MEDICAID, SELFPAY ==
[2022-10-07 13:51] VITALS: BP 162/102; PULSE 77; RESP 18; TEMP 36.8; O2SAT 97
--- NOTE | 2022-10-07 14:15 | ED_ITS ---
HPI - General Adult General: Chief complaint: General Medical Stated complaint: Legs and hands swollen Time Seen by Provider: 10/07/22 13:56 Source: patient Mode of arrival: ambulatory Limitations: no limitations History of Present Illness: Patient is a 51-year-old female who presents to ED today with a complaint of lower extremity swelling. Patient states she kicked up my legs the other day and noticed that they were swollen. She is not having any pain in either leg. She has not noticed any redness or warmth nor coolness or pallor. Patient states she does not have a history of edema. No history of CHF. She does not complain of any chest pain, shortness of breath, difficulty breathing. She denies orthopnea and PND. Denies new medications. She also states she is concerned she might have a UTI as she complains of dysuria and urinary frequency. Onset (ago): day(s) Location: lower extremity Relieving factors: none Exacerbating factors: none Associated symptoms: Reports no associated symptoms; Deny chest pain, dyspnea, headache(s), malaise, rash, palpitations or syncope Treatments prior to arrival: none Review of Systems Const: Denies: fever(s), chills, body aches, fatigue or malaise Card: Reports: edema and swelling of feet/ankles; Denies: chest pain, palpitations, irregular heart rhythm, lightheadedness, syncope, pre-syncope, dyspnea on exertion, orthopnea, leg pain with exertion or acrocyanosis Resp: Denies: dyspnea, wheezing, stridor or hemoptysis GI: Denies: abdominal pain : Reports: dysuria and urinary frequency; Denies: flank pain, difficulty voiding, hematuria, vaginal bleeding, vaginal discharge or pelvic pain Musc: Denies: back pain Skin/Breast: Denies: rash Neuro: Denies: headache(s), numbness in extremities, weakness in extremities, sensory changes or difficulty walking PFS ED PFSH: Medical History Atherosclerosis of coronary artery of [place] heart without angina pectoris [place] stents [place] [address] Kumari Cervical intraepithelial neoplasia grade 2 Cervical post-laminectomy syndrome 04/05/2016 Dr. 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 Alma Harvey C5-C7 ACDFF Hx of right coronary artery stent placement 2016 Dr Kumari at [facility] [place]. S/P cholecystectomy Open procedure performed in 1989 at [facility] [place] by Dr. Menon Status post colonoscopy with polypectomy (05/21/20) polyp - repeat in 5 years Status post hysteroscopy 05/21/2020--hysteroscopy D&C performed at [facility] [place] by Dr. Love for MARTINEZ-pathology showed benign lower uterine segment epithelium and stroma. Status post LEEP (loop electrosurgical excision procedure) of cervix 05/21/2020---LEEP procedure performed at time of hysteroscopy for ESVIN-[address] Love at [facility] [place]. Pathology showed HPV changes and chronic inflammation with negative margins. Post LEEP ECC showed benign endocervical tissue, Family History Grandfather Heart disease maternal and paternal Grandmother Heart disease maternal and paternal Mother Diabetes Hypertension Hyperlipidemia Sister Hypertension Thyroid condition Father CAD (coronary artery disease), Onset Age: 50 Other Cancer Chronic kidney disease (CKD) Lung disease Lupus Rheumatoid arthritis Stroke Denies family history of Clotting disorder Suicide Anesthesia complication Bleeding disorder Social History Smoking and tobacco status: never smoked Smoking risk assessment/counseling performed?: No Alcohol intake: never Desire information about alcohol rehabilitation?: No Counseling given: No Desire information about substance/drug rehabilitation?: No Counseling given: No Adopted: No Caregiver/support person: No Lives independently: Yes Female Reproductive History: Date of last menstrual period: 08/24/19 Physical Exam Const: COMMON NORMALS: no acute distress, patient oriented x3, no limitations, alert and well nourished GENERAL APPEARANCE: cooperative ORIENTATION/CONSCIOUSNESS: Yes awake, Yes oriented to person, Yes oriented to place and Yes oriented to time HENMT: COMMON NORMALS: normocephalic and atraumatic HEAD & SCALP: normal to inspection, normocephalic and atraumatic FACE & SINUS: normal facial exam Neck/C-Spine: OTHER: pt in a [place] J collar from neurosurgery for treatment of a C7 spinous process fracture and T2-T4 compression fractures Chest: COMMONS NORMALS: normal inspection of the chest and normal palpation of entire chest wall Resp: COMMON NORMALS: normal respiratory effort and clear to auscultation bilaterally AUSCULTATION: clear to auscultation bilaterally Cardio: COMMON NORMALS: regular rate and regular rhythm RATE: regular rate RHYTHM: regular rhythm GI: COMMON NORMALS: Normal to inspection, nondistended, normoactive bowel sounds present, Soft to palpation and non-tender PALPATION: Yes Soft to palpation : COMMON NORMALS: Yes no CVA tenderness BLADDER/KIDNEY EXAM: Yes no CVA tenderness Back/Pelvis: COMMON NORMALS: no CVA tenderness Extremity: COMMON NORMALS: full ROM, capillary refill normal, no joint enlargement and no calf tenderness GENERAL: Yes normal exam except as noted OTHER: bilateral LE symmetrical pitting edema Neuro: COMMON NORMALS: patient oriented x3, moves all extremities, no focal motor deficits, no sensory deficits noted and gait normal SENSORIUM/ORIENTATION: Yes alert, Yes oriented to person, Yes oriented to place and Yes oriented to time Skin: COMMON NORMALS: no rashes or lesions noted GENERAL SKIN EXAM: no rashes or lesions noted Course Vital Signs: Vital signs: Vital Signs Temperature 98.2 F 10/07/22 13:51 Pulse Rate 77 10/07/22 13:51 Respiratory Rate 18 10/07/22 13:51 Blood Pressure 162/102 10/07/22 13:51 Pulse Oximetry 97 10/07/22 13:51 Oxygen Delivery Me thod 10/07/22 13:51 [facility] - General Adult Medical Decision Making Patient here with symptoms of a UTI and complaints of bilateral lower extremity edema. Her vital signs are stable. Lab work overall is unremarkable. BUN/Cr are normal. She does chronic kidney disease. UA is suggestive of a UTI so she will be placed on antibiotics for this. I think bilateral lower extremity edema most likely from medications vs dependent edema. I do not see any evidence of nephrotic syndrome or CHF (her BNP is normal/she has no complaints of SOB). I think anything emergent such as pelvic compression or thombosis is unlikely. Rec ommend compression stockings and elevation and I would like her to follow up with her PCP Dr. Sauceda. Return to ED precautions given. Lab Data 10/07/22 14:28 10/07/22 14:28 Laboratory Results WBC 5.1 10^3/uL (4.0-10.0) 10/07/22 14:28 RBC 4.27 10^6/uL (4.1-5.3) 10/07/22 14: Hgb 12.6 g/dL (11.5-15.3) 10/07/22 14: Hct 39.2 % (37.0-47.0) 10/07/22 14: MCV 91.8 fl (81-99) 10/07/22 14: MCH 29.5 pg (28.0-34.0) 10/07/22 14:28 MCHC 32.1 g/dL (30.0-36.0) 10/07/22 14: RDW 13.2 % (12.1-15.1) 10/07/22 14:28 Plt Count 184 10^3/cmm (130-400) 10/07/22 14:28 MPV 9.3 fL (7.4-10.4) 10/07/22 14: Neut % (Auto) 50.4 % 10/07/22 14: Lymph % (Auto) 38.4 % 10/07/22 14:28 [place] % (Auto) 8.4 % 10/07/22 14: Eos % (Auto) 1.8 % 10/07/22 14: Baso % (Auto) 0.8 % 10/07/22 14: Neut # (Auto) 2.59 10^3/uL (1.8-7.7) 10/07/22 14: Lymph # (Auto) 2.0 10^3/uL (0.8-4.8) 10/07/22 14:28 [place] # (Auto) 0.4 10^3/uL (0.2-0.9) 10/07/22 14:28 Eos # (Auto) 0.1 10^3/uL (0.0-0.8) 10/07/22 14:28 Baso # (Auto) 0.0 10^3/uL (0.0-0.1) 10/07/22 14:28 Nucleated RBC % (auto) 0 % 10/07/22 14: Nucleated RBCs # 0.0 /100WBC 10/07/22 14:28 Sodium 141 mmol/L (136-145) 10/07/22 14:28 Potassium 4.1 mmol/L (3.5-5.1) 10/07/22 14:28 Chloride 105 mmol/L (98-107) 10/07/22 14:28 Carbon Dioxide 29 mmol/L (22-29) 10/07/22 14:28 Anion Gap 11.1 (5-19) 10/07/22 14:28 BUN 5 mg/dL (6-20) L 10/07/22 14:28 Creatinine 0.7 mg/dL (0.5-0.9) 10/07/22 14:28 GFR Calculation 87.5 mL/min (90-130) L 10/07/22 14:28 Glucose 90 mg/dL (65-115) 10/07/22 14:28 Calculated Osmolality 289 mOsm/kg (285-295) 10/07/22 14:28 Calcium 8.9 mg/dL (8.5-10.5) 10/07/22 14:28 Total Bilirubin 0.2 mg/dL (0.15-1.2) 10/07/22 14:28 AST 18 U/L (0-32) 10/07/22 14:28 ALT 17 U/L (0-33) 10/07/22 14:28 Alkaline Phosphatase 139 U/L (35-105) H 10/07/22 14:28 NT-Pro-B Natriuret Pep 96 pg/mL (0-125) 10/07/22 14:28 Total Protein 6.4 g/dL (6.6-8.7) L 10/07/22 14:28 Albumin 3.6 g/dL (3.5-5.2) 10/07/22 14:28 Globulin 2.8 g/dL (1.3-4.6) 10/07/22 14:28 Urine Color Yellow (Yellow) 10/07/22 14:15 Urine Appearance Hazy (CLEAR) A 10/07/22 14:15 Urine pH 7 (5-7) 10/07/22 14:15 Ur Specific [place] 1.010 (1.005-1.030) 10/07/22 14:15 Urine Protein Neg (Negative) 10/07/22 14:15 Urine Glucose (UA) Norm (Normal) 10/07/22 14:15 Urine Ketones Negative (Negative) 10/07/22 14:15 Urine Blood Neg (Negative) 10/07/22 14:15 Urine Nitrate Positive (Negative) H 10/07/22 14:15 Urine Bilirubin Neg (Negative) 10/07/22 14:15 Urine Urobilinogen Neg mg/dL (Negative) 10/07/22 14:15 Ur Leukocyte Esterase 2+ (Negative) H 10/07/22 14:15 Urine RBC None /hpf (0-2) 10/07/22 14:15 Urine WBC 15-25 /hpf (0-5) H 10/07/22 14:15 Ur Squamous Epith Cells 0-4 /hpf (0-5) H 10/07/22 14:15 Amorphous Sediment Not Reportable 10/07/22 14:15 Urine Bacteria 2+ /hpf (NONE) H 10/07/22 14:15 Discharge Plan Discharge Patient Disposition: Home Clinical Impression: Bilateral edema of lower extremity Acute cystitis Qualifiers: Hematuria presence: without hematuria Qualified Code(s): N30.00 - Acute cystitis without hematuria Condition: Stable Prescriptions: New Macrobid 100 mg capsule 100 mg PO BID 7 Days Qty: 14 0RF Rx Instructions: must administer with a meal/food No Action aspirin 81 mg tablet,delayed release (DR/EC) 81 mg PO DAILY simethicone 125 mg capsule 125 mg PO TID PRN (Reason: abdominal distention or gas) Qty: 60 0RF valsartan 160 mg tablet 160 mg PO BID Qty: 180 3RF tramadol 50 mg tablet 50 mg PO TID PRN (Reason: pain) Qty: 60 1RF hydroxychloroquine 200 mg tablet 200 mg PO BID Qty: 60 3RF diclofenac sodium 1 % gel 4 g topical QID Qty: 100 2RF Rx Instructions: apply to affected area as needed prednisone 5 mg tablet See Rx Instructions PO .COMPLEX Qty: 90 1RF Rx Instructions: take 2 tabs daily x10 days then stay on 1 tab daily orally; Humira Pen 40 mg/0.8 mL pen injector kit 40 mg SUBCUT Q14D Qty: 2 3RF leflunomide 20 mg tablet 20 mg PO DAILY Qty: 30 3RF (DME) Cervical Collar See Rx Instructions .Route .MEDSUPPLY Qty: 1 0RF Rx Instructions: As directed hydroxyzine HCl 25 mg tablet 25 mg PO TID PRN (Reason: anxiety) Qty: 90 2RF multivitamin [Daily Multi-Vitamin] Tablet 1 tab PO DAILY methocarbamol 750 mg tablet 750 mg PO Q6H PRN (Reason: spasms) Qty: 20 0RF bupropion HCl 150 mg tablet sustained-release 12 hr 150 mg PO QAM Qty: 30 1RF nitroglycerin 0.4 mg tablet, sublingual 0.4 mg SUBLINGUAL Q5M PRN (Reason: Chest Pain) Qty: 25 3RF clopidogrel [Plavix] 75 mg tablet 75 mg PO DAILY Qty: 90 3RF (DME) [place] J with somi extension See Rx Instructions .Route .MEDSUPPLY Qty: 1 0RF Rx Instructions: As directed lamotrigine 100 mg tablet See Rx Instructions .ROUTE .COMPLEX Qty: 90 0RF Dose Instruction: TAKE 1 TABLET BY MOUTH DAILY Rx Instructions: TAKE 1 TABLET BY MOUTH DAILY isosorbide mononitrate 60 mg tablet extended release 24 hr 60 mg PO BID Qty: 180 3RF lactulose 20 gram packet 20 g PO BID PRN (Reason: laxative effect) Qty: 60 0RF cyclobenzaprine 10 mg tablet 10 mg PO TID PRN (Reason: muscle spasm) Qty: 30 0RF hydrocodone-acetaminophen 5-325 mg tablet 1 tab PO Q6H PRN (Reason: cervical fracture) 5 Days Qty: 30 0RF carvedilol 12.5 mg tablet 12.5 mg PO BID Qty: 60 5RF Rx Instructions: must administer with a meal/food trazodone 50 mg tablet 50 mg PO BEDTIME PRN (Reason: sleep) albuterol sulfate [ProAir HFA] 90 mcg/actuation HFA aerosol inhaler 1 puff inhalation Q4H PRN (Reason: Shortness Of Breath Or Wheezing) Discharge Orders: Discharge ED (Routine); Ordered 10/07/22 Ordered By: Denisse Mcmahan Referrals: Andreas Sauceda MD [Primary Care Provider] - Patient Instructions: Urinary Tract Infection in Women (DC), Leg Edema (ED) Coding Level of Care Code ED Potato Chip Sorter for Chg Fwd Exam Comprehensive
[2022-10-07 14:35] LABS: Basophils % 0.8 %; Eosinophils # 0.1 10^3/uL (0.0-0.8); Eosinophils % 1.8 %; Hematocrit 39.2 % (37.0-47.0); Hemoglobin 12.6 g/dL (11.5-15.3); Lymphocytes % 38.4 %; Mean Corpuscular HGB Conc 32.1 g/dL (30.0-36.0); Mean Corpuscular Hemoglobin 29.5 pg (28.0-34.0); Mean Corpuscular Volume 91.8 fl (81-99); Mean Platelet Volume 9.3 fL (7.4-10.4); Monocytes # 0.4 10^3/uL (0.2-0.9); Monocytes % 8.4 %; Neutrophils # 2.59 10^3/uL (1.8-7.7); Neutrophils % 50.4 %; Nucleated Red Blood Cells % 0 %; Platelet Count 184 10^3/cmm (130-400); Red Blood Count 4.27 10^6/uL (4.1-5.3); Red Cell Distribution Width 13.2 % (12.1-15.1); White Blood Count 5.1 10^3/uL (4.0-10.0)
[2022-10-07 14:55] LABS: Add Urine Microscopic? YES; Bilirubin Urine Neg (Negative); Blood Urine Neg (Negative); Glucose Urine UA Norm (Normal); Ketones Urine Negative (Negative); Leukocyte Esterase Urine 2+ (Negative); Nitrate Urine Positive (Negative); Protein Urine Neg (Negative); Urine Appearance Hazy (CLEAR); Urine Color Yellow (Yellow); Urobilinogen Urine Neg (Negative); pH Urine 7 (5-7)
[2022-10-07 14:56] LABS: Add Urine Culture? Yes; Bacteria Urine 2+ /hpf; Squamous Epithelial Cell Urine 0-4 /hpf (0-5); WBC Urine 15-25 /hpf (0-5)
--- NOTE | 2022-10-07 15:00 | XRR_ITS ---
PROCEDURE INFORMATION: Exam: XR Chest Exam date and time: 10/07/2022 3:04 PM Age: 51 years old Clinical indication: Other: Lower leg swelling/edema; Patient HX: Swollen from hips down. Patient had a neck brace on that couldn't be removed. Patient just and neck surgery TECHNIQUE: Imaging protocol: Radiologic exam of the chest. Views: 1 view. COMPARISON: CT chest abd pel w con* 08/04/2022 7:23 PM FINDINGS: Tubes, catheters and devices: Overlying neck brace somewhat obscures the heart shadow and mediastinum. Lungs: Unremarkable. No consolidation. Pleural spaces: Unremarkable. No pleural effusion. No pneumothorax. Heart/Mediastinum: Unremarkable. No cardiomegaly. Bones/joints: Unremarkable. XR/XR chest 1V portable [id number] IMPRESSION: No evidence for acute cardiopulmonary disease.
[2022-10-07 15:03] LABS: Alanine Aminotransferase 17 U/L (0-33); Albumin Level 3.6 g/dL (3.5-5.2); Alkaline Phosphatase 139 U/L (35-105); Anion Gap 11.1 (5-19); Aspartate Amino Transferase 18 U/L (0-32); Blood Urea Nitrogen 5 mg/dL (6-20); Calcium 8.9 mg/dL (8.5-10.5); Carbon Dioxide 29 mmol/L (22-29); Chloride 105 mmol/L (98-107); Creatinine Clr Calc Pharmacy 105.8759; Globulin 2.8 g/dL (1.3-4.6); Glomerular Filtration Rate 87.5 mL/min (90-130); Glucose 90 mg/dL (65-115); NT Pro B Type Natriuretic Pept 96 pg/mL (0-125); Osmolality Calculated 289 mOsm/kg (285-295); Potassium 4.1 mmol/L (3.5-5.1); Sodium 141 mmol/L (136-145); Total Bilirubin 0.2 mg/dL (0.15-1.2); Total Protein 6.4 g/dL (6.6-8.7)
[2022-10-07 15:48] VITALS: PULSE 85; RESP 20; O2SAT 94
== END 2022-10-07 15:52 | disposition home or self-care (01) ==
PROVIDERS: Emergency Provider Physician Assistant; PCP Family Medicine Adult Medicine
DX: R60.0 Localized edema (principal); N30.00 Acute cystitis without hematuria; Z79.82 Long term (current) use of aspirin; Z79.02 Long term (current) use of antithrombotics/antiplatelets; I25.10 Atherosclerotic heart disease of native coronary artery without angina pectoris; J44.9 Chronic obstructive pulmonary disease, unspecified
CPT/HCPCS: 36415; 71045; 80053; 81001; 83880; 85025; 87077; 87086; 87186; 99284

== ENCOUNTER → 2022-11-09 13:51 | Outpatient (BNVA) | payer MEDICAID, SELFPAY | PROVIDERS: PCP Family Medicine Adult Medicine; Visit Provider Internal Medicine Cardiovascular Disease | DX: I25.10 Atherosclerotic heart disease of native coronary artery without angina pectoris (principal); E78.5 Hyperlipidemia, unspecified; I10 Essential (primary) hypertension | CPT/HCPCS: 99214 ==

== ENCOUNTER → 2022-11-10 11:33 | Outpatient (BNVA) | payer MEDICAID, SELFPAY | PROVIDERS: PCP Family Medicine Adult Medicine; Visit Provider Physician Assistant | DX: S12.9XXD Fracture of neck, unspecified, subsequent encounter (principal); S22.040D Wedge compression fracture of fourth thoracic vertebra, subsequent encounter for fracture with routine healing; V89.2XXD Person injured in unspecified motor-vehicle accident, traffic, subsequent encounter; Z98.890 Other specified postprocedural states | CPT/HCPCS: 72040; 72070; 99213 ==

== ENCOUNTER → 2022-11-15 13:53 | Outpatient (BNVA) | payer MEDICAID, SELFPAY | PROVIDERS: PCP Family Medicine Adult Medicine; Visit Provider Internal Medicine Rheumatology | DX: M06.041 Rheumatoid arthritis without rheumatoid factor, right hand (principal); M06.042 Rheumatoid arthritis without rheumatoid factor, left hand; N39.0 Urinary tract infection, site not specified; Z79.899 Other long term (current) drug therapy; Z71.85 Encounter for immunization safety counseling; M79.7 Fibromyalgia | CPT/HCPCS: 81001; 87086; 99214 ==

== ENCOUNTER → 2022-11-23 07:50 | Outpatient (BNVA) | payer MEDICAID, SELFPAY | PROVIDERS: PCP Family Medicine Adult Medicine; Visit Provider Otolaryngology | DX: R13.10 Dysphagia, unspecified (principal); K21.9 Gastro-esophageal reflux disease without esophagitis; R22.1 Localized swelling, mass and lump, neck | CPT/HCPCS: 31575; 99204 ==

== ENCOUNTER 2022-12-13 14:10 | Outpatient (CLI) | payer MEDICAID, SELFPAY ==
--- NOTE | 2022-12-13 14:30 | CTR_ITS ---
PROCEDURE INFORMATION: Exam: CT Neck Without Contrast Exam date and time: 12/13/2022 3:29 PM Age: 52 years old Clinical indication: Mass, lump, or swelling in neck; Right and anterior; Prior surgery; Patient HX: Lump on RT side anterior neck x 1 year -bb; Additional info: Dysphagia TECHNIQUE: Imaging protocol: Computed tomography of the neck without contrast. Radiation optimization: All CT scans at this facility use at least one of these dose optimization techniques: automated exposure control; mA and/or kV adjustment per patient size (includes targeted exams where dose is matched to clinical indication); or iterative reconstruction. REPORTING DATA: Count of CT and Cardiac NM exams in prior 12 months: This patient has received 6 known CTs and 0 known cardiac nuclear medicine studies in the 12 months prior to the current study. COMPARISON: MR cervical spin wo con* [id number] 08/11/2022 4:26 PM RADIATION DOSE METRICS: Total DLP (mGy-cm): 152.65 FINDINGS: Pharynx: Unremarkable. No significant tonsillar enlargement. Larynx: Unremarkable. Epiglottis is normal. Prevertebral and retropharyngeal spaces: Unremarkable. Salivary glands: Normal. Glands are normal in size. Thyroid: Normal. No enlarged or calcified nodules. Lymph nodes: Limited evaluation without IV contrast, with a few small nonspecific lymph nodes without significant lymphadenopathy. Trachea: Visualized trachea is unremarkable. Lungs: Unremarkable as visualized. Bones/joints: Prior anterior fusion C5-6 with hardware. Soft tissues: A BB marker is seen just to the right of midline within the anterior mid neck region. Within the adjacent underlying subcutaneous soft tissues, tubular shaped soft tissue density structures with branching is seen, suggesting vessels or vascular structures. This could be confirmed or better evaluated with contrast-enhanced exam. No soft tissue fluid collection or focal soft tissue mass is seen otherwise. Small amount of carotid vascular calcification. CT/CT neck wo con [id number] IMPRESSION: 1. Tubular shaped soft tissue density structures with branching is seen within the adjacent subcutaneous soft tissues at the level of the BB marker just to the right of midline within the anterior mid neck region, most suggestive of vessels or vascular structures. No fluid density or fluid collection or focal mass is seen otherwise. 2. No acute findings, otherwise.
== END 2022-12-13 14:11 | disposition home or self-care (01) ==
PROVIDERS: PCP Family Medicine Adult Medicine; Visit Provider Otolaryngology
DX: R13.10 Dysphagia, unspecified (principal)
CPT/HCPCS: 70490

== ENCOUNTER → 2022-12-15 13:45 | Outpatient (BNVA) | payer MEDICAID, SELFPAY | PROVIDERS: PCP Family Medicine Adult Medicine; Visit Provider Physician Assistant | DX: S22.040D Wedge compression fracture of fourth thoracic vertebra, subsequent encounter for fracture with routine healing (principal); S12.9XXD Fracture of neck, unspecified, subsequent encounter; V89.2XXD Person injured in unspecified motor-vehicle accident, traffic, subsequent encounter | CPT/HCPCS: 72040; 72072; 99213 ==

== ENCOUNTER 2023-01-16 09:46 | Outpatient (CLI) | payer MEDICAID, SELFPAY ==
--- NOTE | 2023-01-16 10:00 | FL_ITS ---
WS: [id number] Exam: FL barium swallow modifd [id number] Date/Time of Exam: 01/16/2023 10:30 AM Reason For Exam: Other dysphagia Fluoroscopy time: 2min [id number] minutes # of spot films: 1 Modified barium swallow was performed in conjunction with the speech therapy service. The patient tolerated thin liquid, nectar consistency, pudding consistency and solid barium mixture f oodstuffs without aspiration or penetration. The patient ingested a barium tablet without difficulty or complication. FL/FL barium swallow modifd [id number] IMPRESSION: 1. No sign of the aspiration or penetration. Unremarkable modified barium swall ow. A separate report and recommendations will follow from the speech therapy servi ce.
== END 2023-01-16 09:47 | disposition home or self-care (01) ==
LOC: RAD 09:49
PROVIDERS: PCP Family Medicine Adult Medicine; Visit Provider Otolaryngology
DX: R13.19 Other dysphagia (principal)
CPT/HCPCS: 74230; 92611

== ENCOUNTER → 2023-01-30 09:19 | Outpatient (BNVA) | payer MEDICAID, SELFPAY | PROVIDERS: PCP Family Medicine Adult Medicine; Visit Provider Otolaryngology | DX: R13.10 Dysphagia, unspecified (principal); R22.1 Localized swelling, mass and lump, neck | CPT/HCPCS: 99213; 99214 ==

== ENCOUNTER → 2023-02-21 11:04 | Outpatient (BNVA) | payer MEDICAID, SELFPAY | PROVIDERS: PCP Family Medicine Adult Medicine; Visit Provider Physician Assistant | DX: M96.1 Postlaminectomy syndrome, not elsewhere classified (principal); M47.812 Spondylosis without myelopathy or radiculopathy, cervical region | CPT/HCPCS: 72040; 99213 ==

== ENCOUNTER 2023-03-10 14:51 | Outpatient (CLI) | payer MEDICAID, SELFPAY ==
--- NOTE | 2023-03-10 14:56 | MM_ITS ---
WS: [id number] BILATERAL 3D TOMOSYNTHESIS DIGITAL SCREENING MAMMOGRAPHY WITH CAD CLINICAL INFORMATION: SCREENING HISTORY: Screening mammogram. No current complaints. COMPARISON: 2020 TECHNIQUE: Bilateral CC and MLO views. FINDINGS: Scattered fibroglandular densities bilaterally. No suspicious focal mass, asymmetry, calcifications, or architectural distortion. No evidence of malignancy. Nodular density anterior LEFT breast with long-term stability MM/[place] [id number] IMPRESSION: BI-RADS: 2-Benign FOLLOW UP: 1 Year Follow-up Recommend return to annual screening mammography.
== END 2023-03-10 14:52 | disposition home or self-care (01) ==
PROVIDERS: PCP Family Medicine Adult Medicine; Visit Provider Family Medicine Adult Medicine
DX: Z12.31 Encounter for screening mammogram for malignant neoplasm of breast (principal)
CPT/HCPCS: 77063; 77067

== ENCOUNTER → 2023-03-23 13:23 | Outpatient (BNVA) | payer MEDICAID, SELFPAY | PROVIDERS: PCP Family Medicine Adult Medicine; Visit Provider Internal Medicine Rheumatology | DX: M06.041 Rheumatoid arthritis without rheumatoid factor, right hand (principal); M06.042 Rheumatoid arthritis without rheumatoid factor, left hand; Z79.899 Other long term (current) drug therapy; Z71.85 Encounter for immunization safety counseling; M79.7 Fibromyalgia; N39.0 Urinary tract infection, site not specified | CPT/HCPCS: 36415; 80076; 82565; 85025; 86140; 99214 ==

== ENCOUNTER → 2023-04-25 09:56 | Outpatient (BNVA) | payer MEDICAID, SELFPAY | PROVIDERS: PCP Family Medicine Adult Medicine; Visit Provider Physician Assistant | DX: M47.812 Spondylosis without myelopathy or radiculopathy, cervical region (principal); Z98.1 Arthrodesis status | CPT/HCPCS: 99213 ==

== ENCOUNTER → 2023-05-03 13:50 | Outpatient (BNVA) | payer MEDICAID, SELFPAY | PROVIDERS: PCP Family Medicine Adult Medicine; Visit Provider Internal Medicine Cardiovascular Disease | DX: I25.10 Atherosclerotic heart disease of native coronary artery without angina pectoris (principal); E78.5 Hyperlipidemia, unspecified; I10 Essential (primary) hypertension; F17.200 Nicotine dependence, unspecified, uncomplicated; M19.90 Unspecified osteoarthritis, unspecified site; G47.33 Obstructive sleep apnea (adult) (pediatric) | CPT/HCPCS: 99214 ==

== ENCOUNTER → 2023-06-08 12:23 | Outpatient (BNVA) | payer MEDICAID, SELFPAY | PROVIDERS: PCP Family Medicine Adult Medicine; Visit Provider Internal Medicine Rheumatology | DX: Z79.899 Other long term (current) drug therapy (principal); M06.041 Rheumatoid arthritis without rheumatoid factor, right hand; M06.042 Rheumatoid arthritis without rheumatoid factor, left hand; Z71.85 Encounter for immunization safety counseling; M79.7 Fibromyalgia; N39.0 Urinary tract infection, site not specified | CPT/HCPCS: 99214 ==

== ENCOUNTER 2023-08-01 11:33 | Outpatient (CLI) | payer MEDICAID, SELFPAY ==
[2023-08-01 11:56] LABS: Basophils # 0.1 10^3/uL (0.0-0.1); Basophils % 1.4 %; Eosinophils # 0.1 10^3/uL (0.0-0.8); Eosinophils % 1.4 %; Hematocrit 41.7 % (36-47); Lymphocytes # 2.8 10^3/uL (0.8-4.8); Lymphocytes % 48.4 %; Mean Corpuscular HGB Conc 32.9 g/dL (30-55); Mean Corpuscular Volume 91.2 fl (85-98); Mean Platelet Volume 9.1 fL (7.4-10.4); Monocytes # 0.5 10^3/uL (0.2-0.9); Monocytes % 8.7 %; Neutrophils % 39.9 %; Nucleated Red Blood Cells % 0 %; Platelet Count 203 10^3/cmm (157-399); Red Blood Count 4.57 10^6/uL (3.85-5.65); Red Cell Distribution Width 13.3 % (12.1-15.1); White Blood Count 5.76 10^3/uL (3.29-11.43)
[2023-08-01 12:15] LABS: Alanine Aminotransferase 26 U/L (0-33); Albumin Level 3.9 g/dL (3.5-5.2); Alkaline Phosphatase 141 U/L (35-105); Aspartate Amino Transferase 19 U/L (0-32); Globulin 2.6 g/dL (1.3-4.6); Glomerular Filtration Rate 74.7 mL/min (90-130); Total Bilirubin 0.2 mg/dL (0.15-1.2); Total Protein 6.5 g/dL (6.6-8.7)
[2023-08-01 13:25] LABS: Gamma Glutamyl Transferase 63 U/L (5-36)
== END 2023-08-01 11:34 | disposition home or self-care (01) ==
LOC: LAB 11:35
PROVIDERS: PCP Family Medicine Adult Medicine; Visit Provider Internal Medicine Rheumatology
DX: M06.041 Rheumatoid arthritis without rheumatoid factor, right hand (principal); M06.042 Rheumatoid arthritis without rheumatoid factor, left hand; Z79.899 Other long term (current) drug therapy
CPT/HCPCS: 36415; 80076; 82565; 82977; 85025; 86140

== ENCOUNTER → 2023-09-07 13:12 | Outpatient (BNVA) | payer MEDICAID, SELFPAY | PROVIDERS: PCP Family Medicine Adult Medicine; Visit Provider Internal Medicine Rheumatology | DX: Z79.899 Other long term (current) drug therapy (principal); M06.041 Rheumatoid arthritis without rheumatoid factor, right hand; M06.042 Rheumatoid arthritis without rheumatoid factor, left hand; M79.7 Fibromyalgia | CPT/HCPCS: 36415; 80076; 82977; 99214 ==

== ENCOUNTER → 2023-10-17 14:03 | Outpatient (BNVA) | payer MEDICAID, SELFPAY | PROVIDERS: PCP Family Medicine Adult Medicine; Visit Provider Orthopaedic Surgery | DX: M47.812 Spondylosis without myelopathy or radiculopathy, cervical region (principal); M47.22 Other spondylosis with radiculopathy, cervical region | CPT/HCPCS: 72050; 99214 ==

== ENCOUNTER → 2023-11-15 09:38 | Outpatient (BNVA) | payer MEDICAID, SELFPAY | PROVIDERS: PCP Family Medicine Adult Medicine; Visit Provider Internal Medicine Cardiovascular Disease | DX: I25.10 Atherosclerotic heart disease of native coronary artery without angina pectoris (principal); F17.200 Nicotine dependence, unspecified, uncomplicated; I10 Essential (primary) hypertension; E78.5 Hyperlipidemia, unspecified | CPT/HCPCS: 99214 ==

== ENCOUNTER → 2023-11-21 11:22 | Outpatient (BNVA) | payer MEDICAID, SELFPAY | PROVIDERS: PCP Family Medicine Adult Medicine; Visit Provider Family Medicine Adult Medicine | DX: R39.9 Unspecified symptoms and signs involving the genitourinary system (principal); I10 Essential (primary) hypertension | CPT/HCPCS: 81000; 84443 ==

== ENCOUNTER 2023-11-27 12:00 | Outpatient (CLI) | payer MEDICAID, SELFPAY | END 2023-11-27 12:01 | disposition home or self-care (01) | LOC: SLEEP 11-28 09:31 | PROVIDERS: PCP Family Medicine Adult Medicine; Visit Provider Family Medicine Adult Medicine | DX: G47.33 Obstructive sleep apnea (adult) (pediatric) (principal) | CPT/HCPCS: G0399 ==

== ENCOUNTER → 2024-01-16 13:38 | Outpatient (BNVA) | payer MEDICAID, SELFPAY | PROVIDERS: PCP Family Medicine Adult Medicine; Visit Provider Orthopaedic Surgery | DX: M47.22 Other spondylosis with radiculopathy, cervical region (principal); M54.2 Cervicalgia | CPT/HCPCS: 72050; 99214 ==

== ENCOUNTER 2024-01-17 10:28 | Emergency (ER) | payer MEDICAID, SELFPAY ==
[2024-01-17 10:41] VITALS: BP 102/66; PULSE 85; RESP 17; TEMP 37.3; O2SAT 96; BMI 31.1
--- NOTE | 2024-01-17 11:15 | ED_ITS ---
HPI - General Adult 2 General: Chief complaint: General Medical Stated complaint: Headache, body aches Time Seen by Provider: 01/17/24 11:10 History of Present Illness: 53-year-old female presents emergency de partment complaints of generalized fatigue and malaise as well as a headache for the previous 5 days. She states she has generalized myalgias. She states that nothing seems to make it better nothing seems to make it worse. She denies known injury or trauma. She denies nausea vomiting fevers chills or night sweats. Associated symptoms: Reports headache(s) Review of Systems 2 General: Reports: 10 or more systems reviewed and unremarkable except in HPI and below Const: Reports: body aches and other Neuro: Reports: headache(s) PFSH ED 2 PFSH: Medical History Urge incontinence of urine Weight gain, abnormal Allergic rhinitis due to allergen [place] on CPAP Gastroparesis GERD (gastroesophageal reflux disease) Dysphagia Fracture of spinous process of cervical vertebra Traumatic compression fracture of thoracic vertebra Atherosclerosis of coronary artery of [place] heart without angina pectoris placement of stents [place] [address] Kumari COPD (chronic obstructive pulmonary disease) Started smoking at age 18, 1ppd Smoker Started smoking around age 18, 1ppd Obesity (BMI 30.0-34.9) Mixed anxiety depressive disorder Seronegative rheumatoid arthritis of both hands Spasm of back muscles High risk medication use Fibromyalgia Inflammatory arthritis Raynaud phenomenon Chronic back pain greater than 3 months duration Peripheral sensory-motor axonal polyneuropathy Cervical post-laminectomy syndrome 04/05/2016 Dr. Alma Harvey C5-C6 ACDFF Cervical intraepithelial neoplasia grade 2 Colon polyps Needs colonoscopy in 2019 Post-traumatic stress disorder, chronic Opioid-induced hyperalgesia Surgical History History of cervical spinal surgery 04/04/2016 Dr. Alma Harvey C5-C7 ACDFF Status post colonoscopy with polypectomy (05/21/20) polyp - repeat in 5 years H/O esophagogastroduodenoscopy (05/21/20) Status post LEEP (loop electrosurgical excision procedure) of cervix 05/21/2020---LEEP procedure performed at time of hysteroscopy for ESVIN-[address] Love at [facility]. Pathology showed HPV changes and chronic inflammation with negative margins. Post LEEP ECC showed benign endocervical tissue, Status post hysteroscopy 05/21/2020--hysteroscopy D&C performed at [facility] by Dr. Love for MARTINEZ-pathology showed benign lower uterine segment epithelium and stroma. S/P cholecystectomy Open procedure performed in 1989 at [facility] by Dr. Menon Hx of right coronary artery stent placement 2017 Dr Kumari at [facility]. Family History Grandfather Heart disease maternal and paternal Grandmother Heart disease maternal and paternal Mother Diabetes Hypertension Hyperlipidemia Sister Hypertension Thyroid disease Father CAD (coronary artery disease), Onset Age: 50 Other Cancer Chronic kidney disease (CKD) Lung disease Lupus Rheumatoid arthritis Stroke Denies family history of Clotting disorder Suicide Anesthesia complication Bleeding disorder Social History Smoking and tobacco/nicotine status: never used tobacco/nicotine Alcohol intake: never Substance/Drug Use: never Adopted: No Caregiver/support person: No Lives independently: Yes Physical Exam 2 Narrative: EXAM NARRATIVE: General: Alert, no acute distress. Skin: Warm, dry, Intact. Head: Normocephalic, atraumatic. Neck: Supple, trachea midline. Eye: Extraocular movements are intact. PERRLA Ears, nose, mouth and throat: mucosa moist. Cardiovascular: Regular, Normal peripheral perfusion. Respiratory: Lungs are clear to auscultation, respirations are non-labored, breath sounds are equal, Symmetrical chest wall expansion. Gastrointestinal: Soft, Nontender, Non distended, Normal bowel sounds. Musculoskeletal: Normal ROM, no deformity. Neurological: Alert and oriented, No focal neurological deficit observed. Psychiatric: Cooperative, appropriate mood & affect. Course 2 Vital Signs: Vital signs: Vital Signs Temperature 99.1 F 01/17/24 10:41 Pulse Rate 85 01/17/24 10:41 Respiratory Rate 17 01/17/24 10:41 Blood Pressure 102/66 01/17/24 10:41 Pulse Oximetry 96 01/17/24 10:41 Oxygen Delivery Me thod Room Air 01/17/24 10:41 MDM - General Adult Medical Decision Making Physical exam completed document I did obtain a CBC and CMP as well as a rapid strep screen and COVID swab as well as urinalysis. CBC demonstrated platelet count of 123, CMP did demonstrate elevated ALT-42, alkaline phosphatase of 210, total protein 6.2 and albumin at 3.1., Urinalysis did return 3+ blood, her COVID and strep screens were negative. I will have her follow-up with her primary care physician for additional evaluation treatment and care. Differential Diagnosis Upper respiratory viral illness, COVID, influenza, strep pharyngitis, Medical Records I reviewed the patient's medical records. Lab Data I reviewed the patient's lab results. 01/17/24 11:44 01/17/24 11:44 Laboratory Results WBC 11.08 10^3/uL (3.29-11.43) 01/17/24 11:44 RBC 4.09 10^6/uL (3.85-5.65) 01/17/24 11:44 Hgb 11.90 g/dL (11.27-16.99) 01/17/24 11:44 Hct 36.2 % (36-47) 01/17/24 11:44 MCV 88.5 fl (85-98) 01/17/24 11:44 MCH 29.1 pg (27-33) 01/17/24 11:44 MCHC 32.9 g/dL (30-55) 01/17/24 11:44 RDW 13.7 % (12.1-15.1) 01/17/24 11:44 Plt Count 123 10^3/cmm (157-399) L 01/17/24 11:44 MPV 10.6 fL (7.4-10.4) H 01/17/24 11:44 Neut % (Auto) 74.2 % 01/17/24 11:44 Lymph % (Auto) 11.7 % 01/17/24 11:44 [place] % (Auto) 13.4 % 01/17/24 11:44 Eos % (Auto) 0.0 % 01/17/24 11:44 Baso % (Auto) 0.2 % 01/17/24 11:44 Neut # (Auto) 8.23 10^3/uL (1.8-7.7) H 01/17/24 11:44 Lymph # (Auto) 1.3 10^3/uL (0.8-4.8) 01/17/24 11:44 [place] # (Auto) 1.5 10^3/uL (0.2-0.9) H 01/17/24 11:44 Eos # (Auto) 0.0 10^3/uL (0.0-0.8) 01/17/24 11:44 Baso # (Auto) 0.0 10^3/uL (0.0-0.1) 01/17/24 11:44 Nucleated RBC % (auto) 0 % 01/17/24 11:44 Nucleated RBCs # 0.0 /100WBC 01/17/24 11:44 Sodium 135 mmol/L (136-145) L 01/17/24 11:44 Potassium 3.7 mmol/L (3.5-5.1) 01/17/24 11:44 Chloride 101 mmol/L (98-107) 01/17/24 11:44 Carbon Dioxide 24 mmol/L (22-29) 01/17/24 11:44 Anion Gap 13.7 (5-19) 01/17/24 11:44 BUN 13 mg/dL (6-20) 01/17/24 11:44 Creatinine 0.9 mg/dL (0.5-0.9) 01/17/24 11:44 GFR Calculation 65.0 mL/min (90-130) L 01/17/24 11:44 Glucose 118 mg/dL (65-115) H 01/17/24 11:44 Calculated Osmolality 281 mOsm/kg (285-295) L 01/17/24 11:44 Calcium 8.6 mg/dL (8.5-10.5) 01/17/24 11:44 Total Bilirubin 0.5 mg/dL (0.15-1.2) 01/17/24 11:44 AST 32 U/L (0-32) 01/17/24 11:44 ALT 42 U/L (0-33) H 01/17/24 11:44 Alkaline Phosphatase 210 U/L (35-105) H 01/17/24 11:44 Total Protein 6.2 g/dL (6.6-8.7) L 01/17/24 11:44 Albumin 3.1 g/dL (3.5-5.2) L 01/17/24 11:44 Globulin 3.1 g/dL (1.3-4.6) 01/17/24 11:44 Urine Color Yellow (Yellow) 01/17/24 12:04 Urine Appearance Hazy (CLEAR) A 01/17/24 12:04 Urine pH 5 (5-7) 01/17/24 12:04 Ur Specific [place] 1.020 (1.005-1.030) 01/17/24 12:04 Urine Protein 1+ (Negative) H 01/17/24 12:04 Urine Glucose (UA) Norm (Normal) 01/17/24 12:04 Urine Ketones Negative (Negative) 01/17/24 12:04 Urine Blood 3+ (Negative) H 01/17/24 12:04 Urine Nitrate Negative (Negative) 01/17/24 12:04 Urine Bilirubin Neg (Negative) 01/17/24 12:04 Urine Urobilinogen Norm mg/dL (Negative) 01/17/24 12:04 Ur Leukocyte Esterase Trace (Negative) H 01/17/24 12:04 Urine RBC 80-100 /hpf (0-2) H 01/17/24 12:04 Urine WBC 10-15 /hpf (0-5) H 01/17/24 12:04 Ur Squamous Epith Cells 5-10 /hpf (0-5) H 01/17/24 12:04 Amorphous Sediment Trace /hpf 01/17/24 12:04 Urine Bacteria 1+ /hpf (NONE) H 01/17/24 12:04 Urine Mucus 1+ /hpf 01/17/24 12:04 SARS-CoV-2 Ag (Rapid) negative (Negative) 01/17/24 12:04 Group A Strep Rapid Negative (Negative) 01/17/24 12:04 No radiology studies performed this visit Discharge Plan Discharge Patient Disposition: Home Clinical Impression: Viral illness, Malaise and fatigue Hematuria Qualifiers: Hematuria type: unspecified type Qualified Code(s): R31.9 - Hematuria, unspecified Condition: Stable Prescriptions: No Action aspirin 81 mg tablet,delayed release (DR/EC) 81 mg PO DAILY (DME) Cervical Collar See Rx Instructions .Route .MEDSUPPLY Qty: 1 0RF Rx Instructions: As directed nitroglycerin 0.4 mg tablet, sublingual 0.4 mg SUBLINGUAL Q5M PRN (Reason: Chest Pain) Qty: 25 3RF furosemide [Lasix] 20 mg tablet 20 mg PO QAM PRN (Reason: edema) Qty: 30 3RF bupropion HCl 150 mg tablet sustained-release 12 hr 150 mg PO QAM Qty: 30 5RF cholecalciferol (vitamin D3) 25 mcg (1,000 unit) capsule 25 mcg PO DAILY magnesium hydroxide 400 mg (170 mg magnesium) tablet,chewable PO H2Q CoQ10 200 mg/gram powder PO metoclopramide HCl 10 mg tablet 10 mg PO QID PRN (Reason: nausea and vomiting) Qty: 120 5RF Rx Instructions: Take 1 before meals and at bedtime duloxetine [Cymbalta] 60 mg capsule,delayed release(DR/EC) 60 mg PO DAILY Qty: 90 1RF Enbrel 50 mg/mL (1 mL) syringe 50 mg SUBCUT .Q7days Qty: 4 3RF hydroxychloroquine 200 mg tablet 200 mg PO BID Qty: 180 1RF loratadine 10 mg tablet 10 mg PO DAILY Qty: 90 1RF oxybutynin chloride 10 mg tablet extended release 24hr 10 mg PO DAILY Qty: 30 3RF (DME) [place] with somi extension See Rx Instructions .Route .MEDSUPPLY Qty: 1 0RF Rx Instructions: As directed cyclobenzaprine 10 mg tablet 10 mg PO TID PRN (Reason: muscle spasm) Qty: 60 0RF clopidogrel [Plavix] 75 mg tablet 75 mg PO DAILY Qty: 90 3RF lamotrigine 100 mg tablet See Rx Instructions .ROUTE .COMPLEX Qty: 20 0RF Dose Instruction: TAKE 1 TABLET BY MOUTH DAILY Rx Instructions: TAKE 1 TABLET BY MOUTH DAILY, patient will need appointment for refill albuterol sulfate [ProAir HFA] 90 mcg/actuation HFA aerosol inhaler 1 puff inhalation Q4H PRN (Reason: Shortness Of Breath Or Wheezing) Qty: 8.5 5RF valsartan 160 mg tablet 160 mg PO BID Qty: 60 5RF Rx Instructions: MUST KEEP YOUR SCHEDULED APPOINTMENT PRIOR TO ANY MORE REFILLS pantoprazole 40 mg tablet,delayed release (DR/EC) 40 mg PO DAILY Qty: 30 3RF isosorbide mononitrate 60 mg tablet extended release 24 hr 60 mg PO BID Qty: 180 3RF carvedilol 12.5 mg tablet 12.5 mg PO BID Qty: 90 3RF Rx Instructions: must administer with a meal/food (DME) CPAP auto titrating See Rx Instructions .Route .MEDSUPPLY Qty: 1 0RF Rx Instructions: As directed with setting of 6-16 auto titrating budesonide-formoterol [Symbicort] 80-4.5 mcg/actuation HFA aerosol inhaler 2 puff inhalation BID Qty: 10.2 5RF Discharge Orders: Discharge ED (Routine); Ordered 01/17/24 Ordered By: Greg Whitney Referrals: Andreas Sauceda MD [Primary Care Provider] - Discharge Diet: Advance as tolerated Discharge Activity: Resume usual activity Patient Instructions: Opioid Safety, Pain Management Activity Restrictions/Additional Instructions: Activity Restrictions/Additional Instructions: Thank you for choosing [facility] for your healthcare needs today. Please realize that you were seen in the Emergency Department and that we are providing you with an emergency medical screening exam and this may not be a complete and all inclusive of all the testing and or medical work-up that you may need to determine your ailment or severity of your illness. It is very important that you follow-up as instructed with your Primary care provider or Specialist for additional evaluation and to discuss your medical treatment plan. Coding Level of Care Code ED Supply Aide for Mauricio Cota
[2024-01-17 11:52] LABS: Basophils % 0.2 %; Hematocrit 36.2 % (36-47); Lymphocytes # 1.3 10^3/uL (0.8-4.8); Lymphocytes % 11.7 %; Mean Corpuscular HGB Conc 32.9 g/dL (30-55); Mean Corpuscular Hemoglobin 29.1 pg (27-33); Mean Corpuscular Volume 88.5 fl (85-98); Mean Platelet Volume 10.6 fL (7.4-10.4); Monocytes # 1.5 10^3/uL (0.2-0.9); Monocytes % 13.4 %; Neutrophils # 8.23 10^3/uL (1.8-7.7); Neutrophils % 74.2 %; Nucleated Red Blood Cells % 0 %; Platelet Count 123 10^3/cmm (157-399); Red Blood Count 4.09 10^6/uL (3.85-5.65); Red Cell Distribution Width 13.7 % (12.1-15.1); White Blood Count 11.08 10^3/uL (3.29-11.43)
[2024-01-17 12:06] LABS: Alanine Aminotransferase 42 U/L (0-33); Albumin Level 3.1 g/dL (3.5-5.2); Alkaline Phosphatase 210 U/L (35-105); Anion Gap 13.7 (5-19); Aspartate Amino Transferase 32 U/L (0-32); Blood Urea Nitrogen 13 mg/dL (6-20); Calcium 8.6 mg/dL (8.5-10.5); Carbon Dioxide 24 mmol/L (22-29); Chloride 101 mmol/L (98-107); Creatinine Clr Calc Pharmacy 81.4663; Globulin 3.1 g/dL (1.3-4.6); Glucose 118 mg/dL (65-115); Osmolality Calculated 281 mOsm/kg (285-295); Potassium 3.7 mmol/L (3.5-5.1); Sodium 135 mmol/L (136-145); Total Bilirubin 0.5 mg/dL (0.15-1.2); Total Protein 6.2 g/dL (6.6-8.7)
[2024-01-17 12:19] LABS: Blood Urine 3+ (Negative); Glucose Urine UA Norm (Normal); Ketones Urine Negative (Negative); Protein Urine 1+ (Negative); Urine Appearance Hazy (CLEAR); Urine Color Yellow (Yellow); pH Urine 5 (5-7)
[2024-01-17 12:20] LABS: Add Urine Microscopic? YES; Bilirubin Urine Neg (Negative); Leukocyte Esterase Urine Trace (Negative); Nitrate Urine Negative (Negative); Urobilinogen Urine Norm (Negative)
[2024-01-17 12:21] LABS: Rapid Strep A Test Negative (Negative)
[2024-01-17 12:23] LABS: Amorphous Sediment Urine TRACE /hpf; Bacteria Urine 1+ /hpf; Mucus Urine 1+ /hpf; RBC Urine 80-100 /hpf (0-2)
[2024-01-17 12:24] LABS: Add Urine Culture? Yes
[2024-01-17 12:27] LABS: SARS Covid-2 Antigen negative (Negative)
[2024-01-17 13:19] VITALS: BP 113/68; PULSE 88; RESP 16; O2SAT 97
== END 2024-01-17 13:20 | disposition home or self-care (01) ==
PROVIDERS: Emergency Provider Internal Medicine; PCP Family Medicine Adult Medicine
DX: B34.9 Viral infection, unspecified (principal); R53.81 Other malaise; R53.83 Other fatigue; R31.9 Hematuria, unspecified; Z79.82 Long term (current) use of aspirin; Z79.02 Long term (current) use of antithrombotics/antiplatelets; Z11.52 Encounter for screening for COVID-19; I25.10 Atherosclerotic heart disease of native coronary artery without angina pectoris; J44.9 Chronic obstructive pulmonary disease, unspecified
CPT/HCPCS: 36415; 80053; 81001; 85025; 87077; 87081; 87086; 87186; 87426; 87880; 99283

== ENCOUNTER → 2024-02-15 14:51 | Outpatient (BNVA) | payer MEDICAID, SELFPAY | PROVIDERS: PCP Family Medicine Adult Medicine; Visit Provider Physician Assistant | DX: R30.0 Dysuria (principal); R39.9 Unspecified symptoms and signs involving the genitourinary system | CPT/HCPCS: 81000; 87077; 87086; 87184 ==

== ENCOUNTER 2024-02-26 12:39 | Outpatient (CLI) | payer MEDICAID, SELFPAY ==
--- NOTE | 2024-02-26 13:00 | MR_ITS ---
WS: [id number] MRI CERVICAL SPINE NONCONTRAST TECHNIQUE: Sagittal T1, T2 and STIR imaging. Axial T2, gradient, and fiesta imaging. CLINICAL INFORMATION: neck pain COMPARISON: MRI 2021 FINDINGS: Straightening of the normal cervical lordosis. Prior postoperative changes ACDF C5-6. Chronic anterio r wedging at T2-T4 similar to previous. C2-C3: Normal. C3-C4: Moderate facet arthropathy. Mild bilateral bony foraminal narrowing. Facet arthropathy worse o n the RIGHT. C4-C5: Mild disc osteophyte complex with endplate ridging. Mild to moderate LEFT foraminal narrowing. RIGHT foramen is patent. Mild facet arthropathy. C5-C6: Postoperative changes ACDF. Mild LEFT bony foraminal narrowing. Spinal canal and RIGHT foramen are patent. Mild facet arthropathy. C6-C7: Mild disc osteophyte complex eccentric to the LEFT. Moderate LEFT and mild RIGHT bony foramina l narrowing. Spinal canal is patent. C7-T1: Normal. Visualized brain stem structures: Normal. Prevertebral soft tissues: Normal. MR/MR cervical spin wo con* [id number] IMPRESSION: 1. Stable previously described C7 spinous process fracture. 2. Chronic anterior wedging T2-T4 similar to previous. 3. Stable postoperative changes ACDF C5-6. 4. Tiny central protrusions C4-5. Spinal canal remains patent. 5. Disc osteophyte complex C6-7 with moderate LEFT and mild RIGHT bony foramin al narrowing unchanged compared to previous. 6. Mild to moderate LEFT C4-5 bony foraminal narrowing.
== END 2024-02-26 12:40 | disposition home or self-care (01) ==
LOC: RAD 12:39
PROVIDERS: PCP Family Medicine Adult Medicine; Visit Provider Orthopaedic Surgery
DX: M48.02 Spinal stenosis, cervical region (principal); M47.812 Spondylosis without myelopathy or radiculopathy, cervical region; M25.78 Osteophyte, vertebrae; S12.600D Unspecified displaced fracture of seventh cervical vertebra, subsequent encounter for fracture with routine healing; M43.22 Fusion of spine, cervical region
CPT/HCPCS: 72141

== ENCOUNTER → 2024-03-07 15:39 | Outpatient (BNVA) | payer MEDICAID, SELFPAY | PROVIDERS: PCP Family Medicine Adult Medicine; Visit Provider Orthopaedic Surgery | DX: Z01.812 Encounter for preprocedural laboratory examination (principal); Z09 Encounter for follow-up examination after completed treatment for conditions other than malignant neoplasm; M47.22 Other spondylosis with radiculopathy, cervical region | CPT/HCPCS: 80053; 81001; 85025; 99213 ==

== ENCOUNTER → 2024-03-13 11:02 | Outpatient (BNVA) | payer MEDICAID, SELFPAY | PROVIDERS: PCP Family Medicine Adult Medicine; Visit Provider Family Medicine Adult Medicine | DX: N39.41 Urge incontinence (principal) | CPT/HCPCS: 81000 ==

== ENCOUNTER → 2024-03-20 09:33 | Outpatient (BNVA) | payer MEDICAID, SELFPAY | PROVIDERS: PCP Family Medicine Adult Medicine; Visit Provider Internal Medicine Rheumatology | DX: M06.041 Rheumatoid arthritis without rheumatoid factor, right hand (principal); M06.042 Rheumatoid arthritis without rheumatoid factor, left hand; M79.7 Fibromyalgia; Z79.899 Other long term (current) drug therapy; Z71.85 Encounter for immunization safety counseling; I73.00 Raynaud's syndrome without gangrene; M51.36 Other intervertebral disc degeneration, lumbar region | CPT/HCPCS: 99214 ==

== ENCOUNTER → 2024-03-25 10:59 | Outpatient (BNVA) | payer MEDICAID, SELFPAY | PROVIDERS: PCP Family Medicine Adult Medicine; Visit Provider Family Medicine | DX: Z01.818 Encounter for other preprocedural examination (principal) | CPT/HCPCS: 80048; 81003; 85025; 93005 ==

== ENCOUNTER → 2024-03-26 | Outpatient (BNVA) | payer MEDICAID, SELFPAY | PROVIDERS: PCP Family Medicine Adult Medicine; Visit Provider Family Medicine | DX: Z01.818 Encounter for other preprocedural examination (principal) | CPT/HCPCS: 87086 ==

== ENCOUNTER 2024-04-15 05:40 | Day surgery (SDC) | payer MEDICAID, SELFPAY ==
[2024-04-15] VITALS (14 sets, daily range): BP systolic 73–123; BP diastolic 61–80; PULSE 53–81; RESP 12–24; TEMP 36.1–36.2; O2SAT 94–100; BMI 30.4
[2024-04-15] MEDS: sodium chloride 0.9% 1,000 ML 30 ML IV (06:39)
--- NOTE | 2024-04-15 06:39 | W.PM.OPSUD ---
Surgery/Procedure H&P Update DATE OF PROCEDURE: April 15, 2024 DATE H&P PERFORMED: 03/25/24 H&P UPDATE INFORMATION: I have reviewed H&P completed within last 30 days, I have examined patient prior to procedure and No changes to prior documentation PREOP DIAGNOSIS: cervical spondylosis with radiculopathy PLANNED PROCEDURE: Operation Date: 04/15/24 07:00 Proposed Procedures p Anterior Cervical Discectomy & Fusion ACDF w/ Anterior Interbody Fusion w/ Cage w/ Instrumentation w/ Allograft w/ Navigation(Not Applicable) - Drake Ibarra DO
[2024-04-15] MEDS: clindamycin 600 MG/50 ML PREMIX 100 MG IV (06:59)
--- NOTE | 2024-04-15 07:03 | P.ANESASSM_ITS ---
Pre-Anesthetic Assessment Height/Weight: Height 1.7 m Weight 87.997 kg O2 Del Method Room Air 04/15/24 06:08 Preop Diagnosis: cervical spondylosis with radiculopathy Operation Date: 04/15/24 07:00 Proposed Procedures p Anterior Cervical Discectomy & Fusion ACDF w/ Anterior Interbody Fusion w/ Cage w/ Instrumentation w/ Allograft w/ Navigation(Not Applicable) - Drake Ibarra, Familial anesthetic complications: None Was Beta Nereyda taken within 24 hours: N/A Was Clonidine taken within 24 hours: N/A Last intake: Intake Last Liquid Date 04/14/24 Last Liquid Time 22:00 Last Solid Date 04/13/24 Last Solid Time 18:00 Social Tobacco and No alcohol Exam alert, oriented x 3, clear to auscultation bilaterally and regular rate & rhythm Airway Mallampati: Class II Dentition: other (missing) Pulmonary Chronic Obstructive Pulmonary Disease and Sleep Apnea CV/HEM Coronary Artery Disease (stents) and Hypertension GI Gastroesophageal Reflux Disease gastroparesis Musc/skel Rheumatoid Arthritis Anesthetic Plan ASA status: 3 Anesthesia: General Risk of > 500 ml blood loss (7ml/kg in children): No Medications/Allergies Home Medications Medication Instructions Recorded Confirmed Last Taken Type aspirin 81 mg tablet,delayed 81 mg PO DAILY 03/17/20 04/15/24 04/08/24 History release Cervical Collar #1 ea 08/09/22 04/15/24 04/12/24 Rx [place] J with somi extension #1 ea 08/12/22 04/15/24 04/12/24 Rx bupropion HCl 150 mg tablet,12 hr 150 mg PO QAM mental health #30 01/10/23 04/15/24 04/14/24 Rx sustained-release tabs furosemide 20 mg tablet (Lasix) 20 mg PO QAM PRN edema #30 tabs 01/10/23 04/15/24 Unknown Rx cholecalciferol (vitamin D3) 25 25 mcg PO DAILY 04/18/23 04/15/24 Unknown History mcg (1,000 unit) capsule coenzyme Q10 200 mg/gram oral 200 mg PO DAILY 04/18/23 04/15/24 Unknown History powder (H2Q CoQ10) magnesium hydroxide 400 mg (170 mg 400 mg PO DAILY 04/18/23 04/15/24 Unknown History magnesium) chewable tablet metoclopramide HCl 10 mg tablet 10 mg PO QID PRN nausea and 04/18/23 04/15/24 04/12/24 Rx vomiting #120 tabs albuterol sulfate 90 mcg/actuation 1 puff inhalation Q4H PRN 04/25/23 04/15/24 04/13/24 Rx aerosol inhaler (ProAir HFA) Shortness Of Breath Or Wheezing #8.5 grams pantoprazole 40 mg tablet,delayed 40 mg PO DAILY acid reflux #30 tabs 08/23/23 04/15/24 04/14/24 Rx release loratadine 10 mg tablet 10 mg PO DAILY congestion #90 tabs 10/05/23 04/15/24 04/14/24 Rx isosorbide mononitrate 60 mg 60 mg PO BID #180 tabs 10/13/23 04/15/24 04/15/24 Rx tablet,extended release 24 hr CPAP auto titrating #1 ea 12/04/23 04/15/24 04/12/24 Rx budesonide-formoterol HFA 80 2 puff inhalation BID breathing 01/16/24 04/15/24 04/14/24 Rx mcg-4.5 mcg/actuation aerosol #10.2 grams inhaler (Symbicort) valsartan 160 mg tablet 160 mg PO BID blood pressure #60 02/14/24 04/15/24 04/14/24 Rx tabs phenazopyridine 100 mg tablet 100 mg PO TID PRN pain 6 doses #6 02/15/24 04/15/24 Unknown Rx (Pyridium) tabs clopidogrel 75 mg tablet (Plavix) 75 mg PO DAILY #90 tabs 02/20/24 04/15/24 04/08/24 Rx nitroglycerin 0.4 mg sublingual 0.4 mg sublingual Q5M PRN Chest 02/20/24 04/15/24 Unknown Rx tablet Pain #25 tabs etanercept 50 mg/mL (1 mL) 50 mg SUBCUT .Q7days #4 mL 03/12/24 04/15/24 04/14/24 Rx subcutaneous syringe (Enbrel) oxybutynin chloride 15 mg 15 mg PO DAILY #90 tabs 03/13/24 04/15/24 04/13/24 Rx tablet,extended release 24 hr hydroxychloroquine 200 mg tablet 200 mg PO BID #180 tabs 03/20/24 04/15/24 04/14/24 Rx prednisone 20 mg tablet See Rx Instructions PO .COMPLEX 03/20/24 04/15/24 Unknown Rx PRN joint pain flare #30 tabs duloxetine 60 mg capsule,delayed 60 mg PO DAILY #90 caps 03/21/24 04/15/24 04/14/24 Rx release (Cymbalta) carvedilol 12.5 mg tablet 12.5 mg PO BID #90 tabs 04/10/24 04/15/24 04/15/24 Rx Allergies Allergy/AdvReac Type Severity Reaction Status Date / Time Penicillins Allergy hives Verified 04/10/24 13:07 Sulfa (Sulfonamide Allergy Rash Verified 04/10/24 13:07 Antibiotics) leflunomide AdvReac Intermediate Hiar loss Verified 04/10/24 13:07 Current Medications Generic Name Dose Route Start Last Admin Trade Name Freq PRN Reason Stop Dose Admin Sodium Chloride 1,000 mls @ 30 mls/hr 04/15/24 06:30 04/15/24 06:39 Sodium Chloride 0.9% IV 30 mls/hr .Q24H LLOYD Administration PFSH Anesthesia Medical History Urge incontinence of urine Weight gain, abnormal Allergic rhinitis due to allergen [place] on CPAP Gastroparesis GERD (gastroesophageal reflux disease) Dysphagia Fracture of spinous process of cervical vertebra Traumatic compression fracture of thoracic vertebra Atherosclerosis of coronary artery of [place] heart without angina pectoris [place] st[place] [address] Kumari COPD (chronic obstructive pulmonary disease) Started smoking at age 18, 1ppd Smoker Started smoking around age 18, 1ppd Obesity (BMI 30.0-34.9) Mixed anxiety depressive disorder Seronegative rheumatoid arthritis of both hands Spasm of back muscles High risk medication use Fibromyalgia Inflammatory arthritis Raynaud phenomenon Chronic back pain greater than 3 months duration Peripheral sensory-motor axonal polyneuropathy Cervical post-laminectomy syndrome 04/05/2016 Dr. Alma Harvey C5-C6 ACDFF Cervical intraepithelial neoplasia grade 2 Colon polyps Needs colonoscopy in 2019 Post-traumatic stress disorder, chronic Opioid-induced hyperalgesia Surgical History History of cervical spinal surgery 04/04/2016 Dr. D. Green C5-C7 ACDFF Status post colonoscopy with polypectomy (05/21/20) polyp - repeat in 5 years H/O esophagogastroduodenoscopy (05/21/20) Status post LEEP (loop electrosurgical excision procedure) of cervix 05/21/2020---LEEP procedure performed at time of hysteroscopy for ESVIN-[address] Love at [facility] [place]. Pathology showed HPV changes and chronic inflammation with negative margins. Post LEEP ECC showed benign endocervical tissue, Status post hysteroscopy 05/21/2020--hysteroscopy D&C performed at [facility] by Dr. Love for MARTINEZ-pathology showed benign lower uterine segment epithelium and stroma. S/P cholecystectomy Open procedure performed in 1989 at [facility] by Dr. Menon Hx of right coronary artery stent placement 2017 Dr Kumari at [facility]. Family History Grandfather Heart disease maternal and paternal Grandmother Heart disease maternal and paternal Mother Diabetes Hypertension Hyperlipidemia Sister Hypertension Thyroid disease Father CAD (coronary artery disease), Onset Age: 50 Other Cancer Chronic kidney disease (CKD) Lung disease Lupus Rheumatoid arthritis Stroke Denies family history of Clotting disorder Suicide Anesthesia complication Bleeding disorder Social History Smoking and tobacco/nicotine status: current every day tobacco/nicotine user (1 pack a day) cigarettes Alcohol intake: never Substance/Drug Use: never Adopted: No Caregiver/support person: No Lives independently: Yes Data Anesthesia Cardiac Studies: Sestamibi Stress Test (Cardiology) 07/19
[2024-04-15] MEDS: lidocaine-epi 1% PF 1:200,000 30 mL SDV INJECTION (07:31)
--- NOTE | 2024-04-15 08:26 | PM.OP ---
Operative Report Date of procedure: April 15, 2024 Pre-op diagnosis: Cervical spondylosis with radiculopathy Post-op diagnosis: same Procedure done: 1. Anterior discectomy C6/7 2. Insertion of Cage C6/7 3. Instrumentation with anterior plate from C6-C7 4. Use of allograft Surgeon: Drake Ibarra DO Estimated blood loss (mL): 25 Procedure: 1. Anterior discectomy C6/7 2. Insertion of Cage C6/7 3. Instrumentation with anterior plate from C6-C7 4. Use of allograft The patient was taken to the operating room, where he underwent general endotracheal anesthesia without complications. He was then positioned supine on the operating table, and all areas of impingement were well padded. The arms were carefully padded and tucked at his sides. A roll was placed between the shoulder blades.. An x-ray was done to determine the appropriate level for the skin incision. The entire neck was then sterilely prepped and draped in the usual fashion. Neuromonitoring was attached prior to prepping. A transverse skin incision was made and carried down to the platysma muscle. This was then split in line with its fibers. Blunt dissection was carried down medial to the carotid sheath and lateral to the trachea and esophagus until the anterior cervical spine was visualized. A needle was placed into a disc and an x-ray was done to determine its location. The longus colli muscles were then elevated bilaterally with the electrocautery unit. Self-retaining retractors were placed deep to the longus colli muscle. Attention was brought to the C6-7 level that was confirmed on x-ray. A caspar pin was placed into the C6 vertebrae and the C7 vertebrae. The disk space was then distracted. The microscope was then brought in. A radical anterior discectomies were performed at C6/7. This included complete removal of the anterior annulus, nucleus, and posterior annulus. The posterior longitudinal ligament was removed as were the posterior osteophytes. Foraminotomies were then accomplished bilaterally. This was done using a high speed alfonso, kerrison rongeurs and curretes Once all of this was accomplished, the curved currette was used to check for any residual compression. The central canal was wide open as were the foramen. A high-speed bur was used to remove the cartilaginous endplates above and below the interspace. Bleeding cancellous bone was exposed. The disc space were measured and appropriate size cage were placed sterilely onto the field. Allograft graft was packed into the cages. The cage was then placed and there was good juxtaposition against the bleeding decorticated surfaces and good distraction of each interspace. The [place] pins were removed. Bone wax was used to prevent any bleeding from occurring at the pin sites. The appropriate size anterior cervical locking plate was chosen and bent into gentle lordosis. Two screws were then placed into each of the vertebral bodies at C6 and C7. There was excellent purchase. A final x-ray was done confirming good position of the hardware and Cages. The locking screws were then applied, also with excellent purchase. Following a final copious irrigation, there was good hemostasis and no dural leaks. The carotid pulse was strong. The wounds were then closed in layers using 2-0 Vicryl suture for the platysma muscle, 2-0 Vicryl suture for the subcutaneous tissue, and 4-0 monocryl suture in a subcuticular skin closure. Glue was placed followed by application of a sterile dressing. The drain was hooked to bulb suction. A soft collar was applied. The patient was then carefully returned to the supine position on his hospital bed where he was reversed and extubated and taken to the recovery room having tolerated the procedure well.
--- NOTE | 2024-04-15 10:25 | ANE.PACU2 ---
Inpatient post-anesthesia follow up: Airway intact: Yes Vital signs: Temperature 97.2 F Pulse Rate 53 Respiratory Rate 16 Blood Pressure 115/69 Pulse Oximetry 98 Oxygen Delivery Me thod Room Air Oxygen Flow Rate 8 Fraction of Inspir ed Oxygen Hydration adequate: Yes Nausea and vomiting: No Pain level: 1 Mental status: Baseline
--- NOTE | 2024-04-15 10:58 | XR_ITS ---
WS: [id number] C-ARM RADIOGRAPHS CERVICAL SPINE; 4 IMAGES HISTORY: acdf, or pic COMPARISON: None available. Intraoperative imaging during anterior cervical fusion. Exact levels cannot be determined on this flu oroscopic image quality. Patient is intubated. XR/XR cervical spine 3V* [id number] IMPRESSION: Intraoperative imaging during anterior cervical fusion.
== END 2024-04-15 10:23 | disposition home or self-care (01) ==
PROVIDERS: PCP Family Medicine Adult Medicine; Visit Provider Orthopaedic Surgery
PROC: 0RB30ZZ Excision of Cervical Vertebral Disc, Open Approach (ICD-10-PCS; CPT 22551; principal; 2024-04-15 07:00)
DX: M47.22 Other spondylosis with radiculopathy, cervical region (principal); J44.9 Chronic obstructive pulmonary disease, unspecified; I25.10 Atherosclerotic heart disease of native coronary artery without angina pectoris; Z95.5 Presence of coronary angioplasty implant and graft; I10 Essential (primary) hypertension; K21.9 Gastro-esophageal reflux disease without esophagitis; M06.9 Rheumatoid arthritis, unspecified; Z79.82 Long term (current) use of aspirin; G47.33 Obstructive sleep apnea (adult) (pediatric); F17.210 Nicotine dependence, cigarettes, uncomplicated; Z98.1 Arthrodesis status
CPT/HCPCS: 20930; 22551; 22845; 22853; 72040; 76000; C1713 ×2; C1763; C9359; J0131; J0330; J1100; J1170; J1200; J2250; J2371; J2405; J2704; J2710; J3490; J7030

== ENCOUNTER → 2024-05-02 14:15 | Outpatient (BNVA) | payer MEDICAID, SELFPAY | PROVIDERS: PCP Family Medicine Adult Medicine; Visit Provider Orthopaedic Surgery | DX: Z48.89 Encounter for other specified surgical aftercare (principal) | CPT/HCPCS: 99024 ==

== ENCOUNTER → 2024-05-20 10:00 | Outpatient (BNVA) | payer MEDICAID, SELFPAY | PROVIDERS: PCP Family Medicine Adult Medicine; Visit Provider Internal Medicine Cardiovascular Disease | DX: I25.10 Atherosclerotic heart disease of native coronary artery without angina pectoris (principal); E78.5 Hyperlipidemia, unspecified; I73.00 Raynaud's syndrome without gangrene; F17.200 Nicotine dependence, unspecified, uncomplicated; I10 Essential (primary) hypertension; R39.9 Unspecified symptoms and signs involving the genitourinary system | CPT/HCPCS: 36415; 80061; 80076; 81000; 87086; 99214 ==

== ENCOUNTER → 2024-05-30 13:29 | Outpatient (BNVA) | payer MEDICAID, SELFPAY | PROVIDERS: PCP Family Medicine Adult Medicine; Visit Provider Orthopaedic Surgery | DX: M54.2 Cervicalgia (principal); Z98.1 Arthrodesis status | CPT/HCPCS: 72040; 99024 ==

== ENCOUNTER 2024-06-26 10:02 | Outpatient (CLI) | payer MEDICAID, SELFPAY ==
--- NOTE | 2024-06-26 10:18 | MM_ITS ---
WS: [id number] VIEWS: MLO and CC views both breasts. 3D digital tomosynthesis is also included in this exam. Comparison made with prior exam of 08/08/2014, 08/17/2010, 04/30/2021, 03/10/2023.. Findings: There are scattered areas of fibroglandular density. No sign of mass, tumor calcification or architectural distortion. MM/MM scr BI tomosynthesis [id number] Impression: BI-RADS: 2 - Benign. FOLLOW-UP: 1 Year Follow-up This mammogram was also analyzed by the Computer Aided Detection System R2 Imag e Card Assembler.
== END 2024-06-26 10:03 | disposition home or self-care (01) ==
LOC: RAD 10:02
PROVIDERS: PCP Family Medicine Adult Medicine; Visit Provider Family Medicine Adult Medicine
DX: Z12.31 Encounter for screening mammogram for malignant neoplasm of breast (principal); R92.323 Mammographic fibroglandular density, bilateral breasts
CPT/HCPCS: 77063; 77067; 99214

== ENCOUNTER → 2024-07-16 13:21 | Outpatient (BNVA) | payer MEDICAID, SELFPAY | PROVIDERS: PCP Family Medicine Adult Medicine; Visit Provider Orthopaedic Surgery | DX: Z98.1 Arthrodesis status (principal) | CPT/HCPCS: 72040; 99024 ==

== ENCOUNTER → 2024-07-17 09:43 | Outpatient (BNVA) | payer MEDICAID, SELFPAY | PROVIDERS: PCP Family Medicine Adult Medicine; Visit Provider Internal Medicine Rheumatology | DX: Z79.899 Other long term (current) drug therapy (principal); M06.041 Rheumatoid arthritis without rheumatoid factor, right hand; M06.042 Rheumatoid arthritis without rheumatoid factor, left hand; M79.7 Fibromyalgia | CPT/HCPCS: 99214 ==

== ENCOUNTER → 2024-08-06 14:33 | Outpatient (BNVA) | payer MEDICAID, SELFPAY | PROVIDERS: PCP Family Medicine Adult Medicine; Visit Provider Orthopaedic Surgery | DX: Z98.1 Arthrodesis status (principal); M54.2 Cervicalgia | CPT/HCPCS: 72040; 99214 ==

== ENCOUNTER 2024-08-23 11:37 | Outpatient (CLI) | payer MEDICAID, SELFPAY ==
--- NOTE | 2024-08-23 11:45 | MR_ITS ---
WS: [id number] MRI CERVICAL SPINE NONCONTRAST HISTORY: Neck Pain, 4 months postop anterior cervical fusion. COMPARISON: 02/26/2024 Technique: Multiplanar, multisequence noncontrast imaging of the cervical spine. Anterior cervical fusion from C5-C7. Interbody spacers at C5-6 and C6-7. Anterior cervical fusion has been revised since 02/26/2024. Extension of the anterior cervical fusion now to include C7. Mild strai ghtening of the normal cervical lordosis. No marrow edema or fractures. Very mild anterior wedging of T2, T3 and T4. Signal within the cervical cord is normal. Visualized posterior fossa is unremarkable. Craniocervical junction, C1 and C2 relationship, odontoid process and soft tissues are normal. C2-C3: Normal. C3-C4: Mild annular disc bulging. C4-C5: Mild annular disc bulge with mild facet arthritis. No stenosis. C5-C6: Mild osteophytic ridging. No stenosis. C6-C7: Foramina poorly visualized and obscured by artifact. The nerve roots within the foramina are p oorly visualized. Cannot exclude high-grade stenosis or disc protrusions. Greater obscuration of the RIGHT foramen. C7-T1: Mild bilateral foraminal narrowing. Paraspinal soft tissue are normal. MR/MR cervical spin wo con* [id number] IMPRESSION: 1. Revision of the anterior cervical fusion since 02/26/2024. Anterior cervical fusion now extends from C5-C7. 2. Obscuration of the nerve roots within the C6-7 foramen. In part this may be due to artifact from the surgery but the possibility of disc protrusions or os teophyte obscuring the nerve roots must be considered also. Suspect bilateral f oraminal stenosis RIGHT greater than LEFT.
== END 2024-08-23 11:38 | disposition home or self-care (01) ==
LOC: RAD 11:37
PROVIDERS: PCP Family Medicine Adult Medicine; Visit Provider Orthopaedic Surgery
DX: M54.2 Cervicalgia (principal); M43.22 Fusion of spine, cervical region
CPT/HCPCS: 72141

== ENCOUNTER → 2024-10-01 12:47 | Outpatient (BNVA) | payer MEDICAID, SELFPAY | PROVIDERS: PCP Family Medicine Adult Medicine; Visit Provider Nurse Practitioner Women's Health | DX: Z12.4 Encounter for screening for malignant neoplasm of cervix (principal) | CPT/HCPCS: 87624 ==

== ENCOUNTER → 2024-10-03 13:45 | Outpatient (BNVA) | payer MEDICAID, SELFPAY | PROVIDERS: PCP Family Medicine Adult Medicine; Visit Provider Orthopaedic Surgery | DX: M54.2 Cervicalgia (principal); Z79.899 Other long term (current) drug therapy; M06.041 Rheumatoid arthritis without rheumatoid factor, right hand; M06.042 Rheumatoid arthritis without rheumatoid factor, left hand; Z09 Encounter for follow-up examination after completed treatment for conditions other than malignant neoplasm | CPT/HCPCS: 36415; 80076; 82565; 85025; 85651; 86140; 99214 ==

== ENCOUNTER → 2024-10-08 09:52 | Outpatient (BNVA) | payer MEDICAID, SELFPAY | PROVIDERS: PCP Family Medicine Adult Medicine | DX: R30.0 Dysuria (principal) | CPT/HCPCS: 81000 ==

== ENCOUNTER → 2024-10-14 10:25 | Outpatient (BNVA) | payer MEDICAID, SELFPAY | PROVIDERS: PCP Family Medicine Adult Medicine; Visit Provider Anesthesiology Pain Medicine | DX: M54.2 Cervicalgia (principal); G89.29 Other chronic pain; M51.17 Intervertebral disc disorders with radiculopathy, lumbosacral region; M96.1 Postlaminectomy syndrome, not elsewhere classified; R20.0 Anesthesia of skin; R20.2 Paresthesia of skin; N18.2 Chronic kidney disease, stage 2 (mild); M51.16 Intervertebral disc disorders with radiculopathy, lumbar region; M47.816 Spondylosis without myelopathy or radiculopathy, lumbar region; M62.830 Muscle spasm of back; G60.8 Other hereditary and idiopathic neuropathies | CPT/HCPCS: 99214 ==

== ENCOUNTER → 2024-11-20 10:59 | Outpatient (BNVA) | payer MEDICAID, SELFPAY | PROVIDERS: PCP Family Medicine Adult Medicine; Visit Provider Nurse Practitioner Family | DX: I25.10 Atherosclerotic heart disease of native coronary artery without angina pectoris (principal); F17.200 Nicotine dependence, unspecified, uncomplicated; I10 Essential (primary) hypertension; E78.5 Hyperlipidemia, unspecified; F17.210 Nicotine dependence, cigarettes, uncomplicated; M79.18 Myalgia, other site; M47.22 Other spondylosis with radiculopathy, cervical region; M51.17 Intervertebral disc disorders with radiculopathy, lumbosacral region; M54.9 Dorsalgia, unspecified; G89.29 Other chronic pain; M96.1 Postlaminectomy syndrome, not elsewhere classified; R20.0 Anesthesia of skin; R20.2 Paresthesia of skin; N18.2 Chronic kidney disease, stage 2 (mild); M51.16 Intervertebral disc disorders with radiculopathy, lumbar region; M47.816 Spondylosis without myelopathy or radiculopathy, lumbar region; G60.8 Other hereditary and idiopathic neuropathies | CPT/HCPCS: 20553; 99214; J1010; J3490 ==

== ENCOUNTER → 2024-11-25 15:20 | Outpatient (BNVA) | payer MEDICAID, SELFPAY | PROVIDERS: PCP Family Medicine Adult Medicine; Visit Provider Internal Medicine Rheumatology | DX: M06.041 Rheumatoid arthritis without rheumatoid factor, right hand (principal); M06.042 Rheumatoid arthritis without rheumatoid factor, left hand; Z79.899 Other long term (current) drug therapy; M79.7 Fibromyalgia | CPT/HCPCS: 99214 ==

== ENCOUNTER → 2025-01-13 13:34 | Outpatient (BNVA) | payer MEDICAID, SELFPAY | PROVIDERS: PCP Family Medicine Adult Medicine; Visit Provider Anesthesiology Pain Medicine | DX: M47.22 Other spondylosis with radiculopathy, cervical region (principal); M54.2 Cervicalgia; R03.0 Elevated blood-pressure reading, without diagnosis of hypertension; M54.9 Dorsalgia, unspecified; G89.29 Other chronic pain; M51.17 Intervertebral disc disorders with radiculopathy, lumbosacral region; M96.1 Postlaminectomy syndrome, not elsewhere classified; R20.0 Anesthesia of skin; R20.2 Paresthesia of skin; N18.2 Chronic kidney disease, stage 2 (mild); M51.16 Intervertebral disc disorders with radiculopathy, lumbar region; M47.816 Spondylosis without myelopathy or radiculopathy, lumbar region; M62.830 Muscle spasm of back; G60.8 Other hereditary and idiopathic neuropathies | CPT/HCPCS: 99214 ==

== ENCOUNTER → 2025-01-28 09:05 | Outpatient (BNVA) | payer MEDICAID, SELFPAY | PROVIDERS: PCP Family Medicine Adult Medicine; Visit Provider Orthopaedic Surgery | DX: Z98.1 Arthrodesis status (principal) | CPT/HCPCS: 72040; 87880; 99213 ==

== ENCOUNTER → 2025-02-05 15:49 | Outpatient (BNVA) | payer MEDICAID, SELFPAY | PROVIDERS: PCP Family Medicine Adult Medicine; Visit Provider Nurse Practitioner | DX: J02.9 Acute pharyngitis, unspecified (principal) | CPT/HCPCS: 87071; 87880 ==

== ENCOUNTER → 2025-02-19 09:58 | Outpatient (BNVA) | payer MEDICAID, SELFPAY | PROVIDERS: PCP Family Medicine; Visit Provider Family Medicine | DX: I10 Essential (primary) hypertension (principal) | CPT/HCPCS: 80053; 82306; 82607; 85025 ==

== ENCOUNTER → 2025-03-11 09:58 | Outpatient (BNVA) | payer MEDICAID, SELFPAY | PROVIDERS: PCP Family Medicine Adult Medicine; Referring Provider Anesthesiology Pain Medicine; Visit Provider Specialist | DX: M79.671 Pain in right foot (principal); M79.672 Pain in left foot; R20.0 Anesthesia of skin; R20.2 Paresthesia of skin; M54.12 Radiculopathy, cervical region | CPT/HCPCS: 95913 ==

== ENCOUNTER → 2025-03-18 10:56 | Outpatient (BNVA) | payer MEDICAID, SELFPAY | PROVIDERS: PCP Family Medicine Adult Medicine; Visit Provider Anesthesiology Pain Medicine | DX: M54.9 Dorsalgia, unspecified (principal); M54.2 Cervicalgia; R03.0 Elevated blood-pressure reading, without diagnosis of hypertension; M47.22 Other spondylosis with radiculopathy, cervical region; G89.29 Other chronic pain; M51.17 Intervertebral disc disorders with radiculopathy, lumbosacral region; M96.1 Postlaminectomy syndrome, not elsewhere classified; R20.0 Anesthesia of skin; R20.2 Paresthesia of skin; N18.2 Chronic kidney disease, stage 2 (mild); M51.16 Intervertebral disc disorders with radiculopathy, lumbar region; M47.816 Spondylosis without myelopathy or radiculopathy, lumbar region; M62.830 Muscle spasm of back; G60.8 Other hereditary and idiopathic neuropathies | CPT/HCPCS: 99214 ==

== ENCOUNTER → 2025-03-24 14:14 | Outpatient (BNVA) | payer MEDICAID, SELFPAY | PROVIDERS: PCP Family Medicine Adult Medicine; Visit Provider Internal Medicine Rheumatology | DX: M06.041 Rheumatoid arthritis without rheumatoid factor, right hand (principal); M06.042 Rheumatoid arthritis without rheumatoid factor, left hand; Z79.899 Other long term (current) drug therapy; M79.7 Fibromyalgia | CPT/HCPCS: 99214 ==

== ENCOUNTER 2025-04-03 12:44 | Emergency (ER) | payer MEDICAID, SELFPAY ==
--- OUTSIDE RECORDS SUMMARY | 2024-07-20 04:00 | XMS_ITS ---
Author Organization [facility] Address [address] [place] [address] Care Team Providers Care Slot Machine Floor Person Name Role Phone Andreas Sauceda MD Primary Care Provider Unavailab Jaspal Hale Unavailable [phone] Migration, Provider Unavailable Unavailable REASON FOR VISIT EMR-[facility] Encounters Encounter Location Date Provider Diagnosis Migrated_Facility 0 0 07/20/2024 Provider Migration Plan Of Treatment Medication Medication Name Sig Start Date Stop Date Notes HYDROcodone-Acetaminop hen 5-325 MG Oral Tablet 0.5-1 Tablet every 12 hours PRN 03/15/2024 04/14/2024 *Reorder from [facility] for eRx and Interaction Alerts* Progress Notes * Alex MARCIAL MDOB:1970 (54 yo F)Acc No.[id number]:07/20/2024 Patient: Tani Alex ARANGO :1970 A ge:53 Y S ex:Female Address:[address] [place] [id number] * Refills Stop HYDROcodone-Acetaminophen 5-325 MG Oral Tablet, 0.5-1 Tablet every 12 hours PRN Subjective: * Chief Complaints: * E MR-Sanchez * Medical History: * Surgical History: * Hospitalization/Major Diagno stic Procedure: * Medications: Objective: * Vitals: * Physical Examination: Assessment: Plan: * Treatment: * Procedure Codes: * * Date:
--- OUTSIDE RECORDS SUMMARY | 2024-07-21 04:00 | XMS_ITS ---
Author Organization [facility] Address [address] [place] [address] Care Team Providers Care Logging Rafter Laborer Name Role Phone Andreas Sauceda MD Primary Care Provider Unavailab Jaspal Hale Unavailable [phone] Migration, Provider Unavailable Unavailable Allergies Allergen (clinical drug ingredient) Drug/Non Drug Allergy documented on EMR Reaction Allergy Type Onset Date Status Substance with sulfonamide structure and antibacterial mechanism of action (substance) SULFA (SULFONAMIDE ANTIBIOTICS) (uncoded) Hives Allergy Active Substance with penicillin structure and antibacterial mechanism of action (substance) Penicillins Hives Drug Allergy Active REASON FOR VISIT EMR-Sanchez Medications Medication SIG (Take, Route, Frequency, Duration) Notes Start Date End Date Status hydrOXYzine HCl *[facility]* Active Valsartan *Pick strength-form from [facility] for eRX* Active Isosorbide Mononitrate *Pick strength-form from [facility] for eRX* Active Aspirin *Pick strength-form from [facility] for eRX* Active Magnesium *[facility]* Active Hydroxychloroquine *Reorder from [facility] for eRx and Interaction Alerts* Active clopidogrel *Reorder from [facility] for eRx and Interaction Alerts* Active Fish Oil *Pick strength-form from [facility] for eRX* Active Milk Thistle *Pick strength-form from [facility] for eRX* Active Vitamin D3 *[facility]* Active buPROPion HCl *[facility]* Active OXYBUTYNIN ER 10MG TABLETS TAKE 1 TABLET BY MOUTH DAILY *Reorder from [facility] for eRx and Interaction Alerts* Active Carvedilol *Pick strength-form from [facility] for eRX* Active Ranolazine *Reorder from [facility] for eRx and Interaction Alerts* Active Encounters Encounter Location Date Provider Diagnosis Migrated_Facility 0 0 07/21/2024 Provider Migration Plan Of Treatment No Information Progress Notes * Alex MARCIAL MDOB:1970 (54 yo F)Acc No.[id number]:07/21/2024 Patient: Alex SANTO :1970 A ge:53 Y S ex:Female Address:[address] [place] [address] [address], [place] [address] Subjective: * Chief Complaints: * E MR-Sanchez * Medical History: * Surgical History: H eart stents Gallbladder surgery Since 1989Neck surgery Since 2015 * Hospitalization/Major Diagno stic Procedure: * Family History: M igrated Family History: : chronic pain, f ibromyalgia, H eart disease, p sychiatric problems, R heumatoid arthritis. * Social History: M igrated Social History: M igrated Social History: Alcoholic beverages? - No, C urrently on disability? - Yes, D rug or substance abuse? - No, I nvolved in any legal proceedings or lawsuits? - Yes, M arital Status - single, N onprescription drug use? - No, P articipation in detoxification or rehabilitation - No, S moked in the past? - Yes, S moking - 1 PPD, S moking status (MU) - Current every day smoker, W orking currently? - No. * Medications: T akingValsartan , Notes to Pharmacist: *Pick strength-form from [facility] for eRX*buPROPion HCl , Notes to Pharmacist: *Pick strength-form from [facility] for eRX*Isosorbide Mononitrate , Notes to Pharmacist: *Pick strength-form from [facility] for eRX*Fish Oil , Notes to Pharmacist: *Pick strength-form from [facility] for eRX*Milk Thistle , Notes to Pharmacist: *Pick strength-form from [facility] for eRX*Carvedilol , Notes to Pharmacist: *Pick strength-form from [facility] for eRX*Hydroxychloroquine , Notes to Pharmacist: *Reorder from [facility] for eRx and Interaction Alerts*Vitamin D3 , Notes to Pharmacist: *Pick strength-form from [facility] for eRX*OXYBUTYNIN ER 10MG TABLETS TAKE 1 TABLET BY MOUTH DAILY , Notes to Pharmacist: *Reorder from [facility] for eRx and Interaction Alerts*Ranolazine , Notes to Pharmacist: *Reorder from [facility] for eRx and Interaction Alerts*clopidogrel , Notes to Pharmacist: *Reorder from [facility] for eRx and Interaction Alerts*Aspirin , Notes to Pharmacist: *Pick strength-form from [facility] for eRX*Magnesium , Notes to Pharmacist: *Pick strength-form from [facility] for eRX*hydrOXYzine HCl , Notes to Pharmacist: *Pick strength-form from [facility] for eRX*Taking Valsartan , Notes to Pharmacist: *Pick strength-form from [facility] for eRX*Taking buPROPion HCl , Notes to Pharmacist: *Pick strength-form from [facility] for eRX*Taking Isosorbide Mononitrate , Notes to Pharmacist: *Pick strength-form from [facility] for eRX*Taking Fish Oil , Notes to Pharmacist: *Pick strength-form from [facility] for eRX*Taking Milk Thistle , Notes to Pharmacist: *Pick strength-form from [facility] for eRX*Taking Carvedilol , Notes to Pharmacist: *Pick strength-form from [facility] for eRX*Taking Hydroxychloroquine , Notes to Pharmacist: *Reorder from [facility] for eRx and Interaction Alerts*Taking Vitamin D3 , Notes to Pharmacist: *Pick strength-form from [facility] for eRX*Taking OXYBUTYNIN ER 10MG TABLETS TAKE 1 TABLET BY MOUTH DAILY , Notes to Pharmacist: *Reorder from [facility] for eRx and Interaction Alerts*Taking Ranolazine , Notes to Pharmacist: *Reorder from [facility] for eRx and Interaction Alerts*Taking clopidogrel , Notes to Pharmacist: *Reorder from [facility] for eRx and Interaction Alerts*Taking Aspirin , Notes to Pharmacist: *Pick strength-form from [facility] for eRX*Taking Magnesium , Notes to Pharmacist: *Pick strength-form from [facility] for eRX*Taking hydrOXYzine HCl , Notes to Pharmacist: *Pick strength- form from [facility] for eRX* * Allergies: S ULFA (SULFONAMIDE ANTIBIOTICS): Hives - AllergyPenicillins: Hives - Allergy Objective: * Vitals: * Physical Examination: Assessment: Plan: * Treatment: * Procedure Codes: * * Date:
--- OUTSIDE RECORDS SUMMARY | 2024-08-28 05:00 | XMS_ITS ---
Author Organization [facility] Address [address] [place] [address] Care Team Providers Care Corporate Event Planner Name Role Phone Andreas Sauceda MD Primary Care Provider Jaspal Deras Unavailable [phone] REASON FOR VISIT 2 mo RK Medications Medication SIG (Take, Route, Frequency, Duration) Notes Start Date End Date Status Ranolazine *[facility]* Active Aspirin [facility]* Active clopidogrel *[facility] and Interaction Alerts* Active hydrOXYzine HCl *[facility]* Active Magnesium *[facility]* Active OXYBUTYNIN ER 10MG TABLETS TAKE 1 TABLET BY MOUTH DAILY *[facility] and Interaction Alerts* Active Vitamin D3 *[facility]* Active Carvedilol *[facility]* Active Milk Thistle *[facility]* Active Hydroxychloroquine *[facility] and Interaction Alerts* Active buPROPion HCl *Pick strength-form from [facility] for eRX* Active Valsartan *[facility]* Active Fish Oil *Pick strength-form from [facility] for eRX* Active Isosorbide Mononitrate *[facility]* Active Problems Problem Type SNOMED Code ICD Code Onset Dates Problem Status W/U Status Risk Notes Problem 700145494 Chronic pain syndrome (G89.4) Active confirmed Problem 07538660 Radiculopathy, cervical region (M54.12) Active confirmed Problem 811051614 Fusion of spine, 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) Active confirmed Problem 456359878 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891 and DDD (degenerative disc disease), cervical M50.30 Assessments Encounter Date Diagnosis (ICD Code) Assessment Notes Treatment Notes Treatment Clinical Notes Section Notes 08/28/2024 Chronic pain syndrome (ICD-10 - G89.4) 08/28/2024 Radiculopathy, cervical region (ICD-10 - M54.12) 08/28/2024 Fusion of spine, cervical region (ICD-10 - M43.22) 08/28/2024 Chronic pain due to trauma (ICD-10 - G89.21) 08/28/2024 Abnormality of gait and mobility (ICD-10 - R26.9) 08/28/2024 oil heaterman (current) use of opiate analgesic (ICD-10 - Z79.891) 08/28/2024 DDD (degenerative disc disease), cervical (ICD-10 - M50.30) Plan Of Treatment No Information Progress Notes * Alex MARCIAL MDOB:1970 (54 yo F)Acc No.[id number]:08/28/2024 Progress Notes Patient: Tani NBA Alex Rodríguez Provider: Adry Davis D.O. :1970 A ge:53 Y S ex:Female Date:08/28/2024 Address:[address] [place] [address] [facility], [id number] Pcp:Andreas Sauceda MD Subjective: * Chief Complaints: * 1 . 2 mo RK. * Medical History: * Medications: T aking Valsartan , Notes to Pharmacist: *Pick strength-form from [facility] for eRX*, Taking buPROPion HCl , Notes to Pharmacist: *Pick strength-form from [facility] for eRX*, Taking Isosorbide Mononitrate , Notes to Pharmacist: *Pick strength-form from [facility] for eRX*, Taking Fish Oil , Notes to Pharmacist: *Pick strength-form from [facility] for eRX*, Taking Milk Thistle , Notes to Pharmacist: *Pick strength- form from [facility] for eRX*, Taking Carvedilol , Notes to Pharmacist: *Pick strength- form from [facility] for eRX*, Taking Hydroxychloroquine , Notes to Pharmacist: *Reorder from [facility] for eRx and Interaction Alerts*, Taking Vitamin D3 , Notes to Pharmacist: *Pick strength-form from [facility] for eRX*, Taking OXYBUTYNIN ER 10MG TABLETS TAKE 1 TABLET BY MOUTH DAILY , Notes to Pharmacist: *Reorder from [facility] for eRx and Interaction Alerts*, Taking Ranolazine , Notes to Pharmacist: *Reorder from [facility] for eRx and Interaction Alerts*, Taking clopidogrel , Notes to Pharmacist: *Reorder from [facility] for eRx and Interaction Alerts*, Taking Aspirin , Notes to Pharmacist: *Pick strength-form from [facility] for eRX*, Taking Magnesium , Notes to Pharmacist: *Pick strength-form from [facility] for eRX*, Taking hydrOXYzine HCl , Notes to Pharmacist: *Pick strength-form from [facility] for eRX* Objective: * Vitals: * Examination: G eneral Examination: C onstitutional: Patient appears to be appropriate looking for stated age. Patient is awake, alert and oriented to person, place and time with recent/ remote memory intact. , in no acute distress. R espiratory: Visual Inspection: breathing equal bilaterally, trachea midline. H EENT: Atraumatic, Normocephalic. Pupils grossly normal on inspection. Cardiovascular: Cardiac rhythm is regular. C ervical Spine: Cervical Spine is grossly stable, supple with loss of normal curvature noted. Anterior surgical scar well healed. Palpation Cervical Spine: bilateral palpation of cervical paraspinals was painful. C ervical ROM: generalized reduced ROM. Cervical facet loading maneuvers of lateral flexion reproduced characteristic neck pain bilaterally. Pain noted with anterior neck flexion. There is pain while extension of cervical spine. There was pain while patient was made to do left lateral rotation. Left lateral flexion causes pain. Painful right lateral rotation of cervical spine has been reported by the patient. Right lateral flexion is associated with pain. Tightness in paraspinal, trapezius and sternocleidomastoid muscles. Spurlings test is positive on the right. Strength/ tone : normal T horacic Spine: Mild upper right sided thoracic tenderness L umbar Spine: Inspection of the lumbar spine reveals loss of normal lordosis with no obvious scoliosis or asymmetry noted Range of Motion: Greatly reduced ROM in all directions. Hyperextension at lumbar spine reproduced lower back pain. Bilateral facet loading maneuvers (lateral flexion/extension/bending) reproduced lower back pain. Bilateral lateral rotation also causes some pain. Anterior lumbar flexion causes pain. Pain during lumbar extension was observed. Left lateral flexion causes pain. Right lateral flexion causes pain. + tightness of b/l paraspinals. J oints- Hips/ SI Joint: SI Joint Palpation : No noted issues. N eurology - Mental Status: Mood and affect are grossly normal. N eurology - Coordination: Antalgic gait. N eurology - Straight Leg Raising: Right: 70 degrees and negative. Left: 70 degrees and negative. N eurology - Motor Strength: Left UE strength - Flexors: 5/5. Right UE strength - Flexors: 4+/5. Left UE strength - Extensors: 5/5. Right UE strength - Extensors: 4+/5. Left UE Tone: Normal. Right UE Tone: Normal. Left LE strength - Flexors: 5/5. Right LE strength - Flexors: 5/5. Left LE strength - Extensors: 5/5. Right LE strength - Extensors: 5/5. Left LE Tone: Normal. Right LE Tone: Normal. N eurology - Sensation: B/L C6-7 paresthesias N eurology - Deep Tendon Reflexes: Left biceps (DTR): 2. Right biceps (DTR): 2. Left triceps (DTR): 2. Right triceps (DTR): 2. Left brachioradialis (DTR): 2. Right brachioradialis (DTR): 2. Left patellar (DTR): 2. Right patellar (DTR): 2. Left achilles (DTR): 1. Right achilles (DTR): 1.- Bañuelos's b/l S kin: Scars : Consistent with prior surgeries Inspection: no obvious bruising, rash, ulcerations or discolorations noted. Assessment: * Assessment: 1. C hronic pain syndrome - G89.4 (Primary) 2 . R adiculopathy, cervical region - M54.12 3 . F usion of spine, cervical region - M43.22 4 .?Chronic pain due to trauma - G89.21 5 . A bnormality of gait and mobility - R26.9 6 . L giovanni term (current) use of opiate analgesic - Z79.891 ?7. D DD (degenerative disc disease), cervical - M50.30 Plan: * Treatment: Forms: * Billing Information: * Visit Code: * Procedure Codes: Care Plan Details* * Electronic signature of Jaspal Davis DO on 04/03/2025 at 12:51 PM CDT Sign off status: Pending * Provider: Adry Davis D.O. Date: 10/29/2023 Generated for Majo royal/Mendez/Stacyitting on: 0 04/03/2025 12:51 PM CDT History and Physical Notes * Examination Category Sub-Category Detail Notes Category Not es General Examination Constitutional: Patient appears to be appropriate looking for stated age. Patient is awake, alert and oriented to person, place and time with recent/ remote memory intact. , in no acute distress. Respiratory: Visual Inspection: breathing equal bilaterally, trachea midline. HEENT: Atraumatic, Normocephalic. Pupils grossly normal on inspection. Cardiovascular: Cardiac rhythm is regular. Cervical Spine: Cervical Spine is grossly stable, supple with loss of normal curvature noted. Anterior surgical scar well healed. Palpation Cervical Spine: bilateral palpation of cervical paraspinals was painful. Cervical ROM: generalized reduced ROM. Cervical facet loading maneuvers of lateral flexion reproduced characteristic neck pain bilaterally. Pain noted with anterior neck flexion. There is pain while extension of cervical spine. There was pain while patient was made to do left lateral rotation. Left lateral flexion causes pain. Painful right lateral rotation of cervical spine has been reported by the patient. Right lateral flexion is associated with pain. Tightness in paraspinal, trapezius and sternocleidomastoid muscles. Spurlings test is positive on the right. Strength/ tone : normal Thoracic Spine: Mild upper right sided thoracic tenderness Lumbar Spine: Inspection of the lumbar spine reveals loss of normal lordosis with no obvious scoliosis or asymmetry noted Range of Motion: Greatly reduced ROM in all directions. Hyperextension at lumbar spine reproduced lower back pain. Bilateral facet loading maneuvers (lateral flexion/extension/bending) reproduced lower back pain. Bilateral lateral rotation also causes some pain. Anterior lumbar flexion causes pain. Pain during lumbar extension was observed. Left lateral flexion causes pain. Right lateral flexion causes pain. + tightness of b/l paraspinals. Joints- Hips/ SI Joint: SI Joint Palpation : No noted issues. Neurology - Mental Status: Mood and affect are grossly normal. Neurology - Coordination: Antalgic gait. Neurology - Straight Leg Raising: Right: 70 degrees and negative. Left: 70 degrees and negative. Neurology - Motor Strength: Left UE strength - Flexors: 5/5. Right UE strength - Flexors: 4+/5. Left UE strength - Extensors: 5/5. Right UE strength - Extensors: 4+/5. Left UE Tone: Normal. Right UE Tone: Normal. Left LE strength - Flexors: 5/5. Right LE strength - Flexors: 5/5. Left LE strength - Extensors: 5/5. Right LE strength - Extensors: 5/5. Left LE Tone: Normal. Right LE Tone: Normal. Neurology - Sensation: B/L C6-7 paresthesias Neurology - Deep Tendon Reflexes: Left biceps (DTR): 2. Right biceps (DTR): 2. Left triceps (DTR): 2. Right triceps (DTR): 2. Left brachioradialis (DTR): 2. Right brachioradialis (DTR): 2. Left patellar (DTR): 2. Right patellar (DTR): 2. Left achilles (DTR): 1. Right achilles (DTR): 1.- Bañuelos's b/l Skin: Scars : Consistent with prior surgeries Inspection: no obvious bruising, rash, ulcerations or discolorations noted.
[2025-04-03 12:45] VITALS: BP 113/62; PULSE 54; RESP 16; TEMP 36.3; O2SAT 97; BMI 30.5
--- NOTE | 2025-04-03 12:46 | XR_ITS ---
WS: [id number] Exam: XR chest 1V portable [id number] Date/Time of Exam: 04/03/2025 12:46 PM Reason For Exam: chest pain Comparison 10/07/2022. Lungs are fully inflated and clear. Heart size top limits normal. The mediastinum is not widened. No pleural effusion. Fusion hardware in the lower C- spine. Unremarkable bony structures otherwise. XR/XR chest 1V portable [id number] IMPRESSION: 1. No acute cardiopulmonary finding.
--- NOTE | 2025-04-03 12:49 | ECG_ITS ---
[facility] Date: 2025-04-03 Pat Name: Alex Malhotra Department: Room: Gender: Female Track Layer: : 1970 Requested By: Ji Caballero Order Number: [id number] Joshua MD: Peter Sanchez M.D. Measurements Intervals [place] Rate: 53 P: 72 WA: 182 QRS: -9 QRSD: 106 T: 41 QT: 457 QTc: 430 Interpretive Statements SINUS BRADYCARDIA LOW QRS VOLTAGE IN PRECORDIAL LEADS [QRS DEFLECTION < 1.0 mV IN CHEST LEADS] POSSIBLE ANTERIOR MYOCARDIAL INFARCTION , PROBABLY OLD [30 ms Q WAVE IN V3/V4, OR R < 0.2 mV IN V4] Compared to ECG 03/25/2024 11:07:20 Low QRS voltage now present Myocardial infarct finding still present Electronically Signed On 04-04-2025 15:21:53 CDT by Peter Sanchez M.D. [email or web address]
--- OUTSIDE RECORDS SUMMARY | 2025-04-03 12:51 | XMS_ITS | Patient Health Record ---
Author Organization [facility] Address [address] [place] [address] Care Team Providers Care Project Specialist Name Role Phone Andreas Sauceda MD Primary Care Provider Unavailab Jaspal Hale Unavailable [phone] Migration, Provider Unavailable Unavailable Magdalena Yusuf Unavailable [phone] Allergies Allergen (clinical drug ingredient) Drug/Non Drug Allergy documented on EMR Reaction Allergy Type Onset Date Status Substance with penicillin structure and antibacterial mechanism of action (substance) Penicillins Hives Drug Allergy Active Substance with sulfonamide structure and antibacterial mechanism of action (substance) Sulfa Antibiotics Hives Drug Allergy Active Reason For Referral No Information Medications Medication SIG (Take, Route, Frequency, Duration) Notes Start Date End Date Status Vitamin D3 *[facility]* Active Ranolazine *Reorder from [facility] for eRx and Interaction Alerts* Active OXYBUTYNIN ER 10MG TABLETS TAKE 1 TABLET BY MOUTH DAILY *Reorder from [facility] for eRx and Interaction Alerts* Active Carvedilol *[facility]* Active Milk Thistle *[facility]* Active Hydroxychloroquine *Reorder from [facility] for eRx and Interaction Alerts* Active buPROPion HCl *[facility]* Active Aspirin *[facility]* Active Valsartan *[facility]* Active clopidogrel *Reorder from [facility] for eRx and Interaction Alerts* Active Fish Oil *[facility]* Active hydrOXYzine HCl *Pick strength-form from [facility] for eRX* Active Isosorbide Mononitrate *Pick strength-form from [facility] for eRX* Active Magnesium *Pick strength-form from [facility] for eRX* Active Problems Problem Type SNOMED Code ICD Code Onset Dates Problem Status W/U Status Risk Notes Problem 896020508 Chronic pain due to trauma (G89.21) Active confirmed Problem 311249038 Chronic pain syndrome (G89.4) Active confirmed Problem 032712845 Fusion of spine, 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) Active confirmed Problem 35049356 Radiculopathy, cervical region (M54.12) Active confirmed Problem 52913285 DDD (degenerative disc disease), cervical (M50.30) Active confirmed Problem 73042737 Abnormality of gait and mobility (R26.9) Active confirmed Encounters Encounter Location Date Provider Diagnosis [facility] [place] [address] [place] [address] 04/11/2024 Magdalena Yusuf [facility] [place] [address] [place] [address] 04/11/2024 Magdalena Yusuf [facility] [place] [address] [place] [address] 07/04/2024 Magdalena Yusuf [facility] 0 0 07/20/2024 Provider Migration [facility] 0 0 07/21/2024 Provider Migration [facility] [address] [place] [address] [place] [address] 10/02/2024 Jaspal Davis Plan Of Treatment No Information Insurance Providers Payer Name Payer Address Payer Phone Subscriber Number Group Number Insured Name Patient Relationship to Insured Coverage Start Date Coverage End Date [place] Medicaid [address] [place] [id number] Alex Malhotra Self - patient is the insured Medical (General) History Surgical History Surgery Date(Month/Year) Heart stents Gallbladder surgery Since 1989 Neck surgery Since 2015
[2025-04-03 12:56] LABS: Hematocrit 34.6 % (36-47); Hemoglobin 11.30 g/dL (11.27-16.99); Mean Corpuscular HGB Conc 32.7 g/dL (30-55); Mean Corpuscular Hemoglobin 29.0 pg (27-33); Mean Corpuscular Volume 88.9 fl (85-98); Nucleated Red Blood Cells % 0 %; Platelet Count 183 10^3/cmm (157-399); Red Blood Count 3.89 10^6/uL (3.85-5.65); White Blood Count 6.40 10^3/uL (3.29-11.43)
--- NOTE | 2025-04-03 13:05 | W.ED.CHESTPA ---
HPI - Chest Pain General: Chief Complaint: Chest Pain Stated Complaint: chest pain x 3 days Time Seen by Provider: 04/03/25 12:45 History of Present Illness: 54-year-old female presents emergency room complaining of intermittent chest pain whenever she gets emotionally stressed been going for the last 3 days. Not exertional associated with exertion. No diaphoresis no nausea. She is also complaining of intermittent swelling of the legs particular if she has been up on them for a while. She was concerned because she could not palpate a pulse in her right leg earlier this today. Associated symptoms: Deny abdominal pain, dyspnea or fever(s) Related Data Home Medications ?Medication ?Instructions ?Recorded ?Confirmed aspirin 81 mg tablet,delayed 81 mg PO DAILY 03/17/20 03/24/25 release Held on 04/15/24. Instructions: Resume on 04/16/24. cholecalciferol (vitamin D3) 25 25 mcg PO DAILY 04/18/23 03/24/25 mcg (1,000 unit) capsule coenzyme Q10 200 mg/gram oral 200 mg PO DAILY 04/18/23 03/24/25 powder (H2Q CoQ10) magnesium hydroxide 400 mg (170 mg 400 mg PO DAILY 04/18/23 03/24/25 magnesium) chewable tablet Previous Rx's ?Medication ?Instructions ?Recorded Cervical Collar #1 ea 08/09/22 [place] J with somi extension #1 ea 08/12/22 albuterol sulfate 90 mcg/actuation 1 puff inhalation Q4H PRN 04/25/23 aerosol inhaler (ProAir HFA) Shortness Of Breath Or Wheezing #8.5 grams loratadine 10 mg tablet 10 mg PO DAILY congestion #90 tabs 10/05/23 CPAP auto titrating #1 ea 12/04/23 clopidogrel 75 mg tablet (Plavix) 75 mg PO DAILY #90 tabs 02/20/24 Held on 04/15/24. Instructions: Resume on 04/17/24. nitroglycerin 0.4 mg sublingual 0.4 mg sublingual Q5M PRN Chest 02/20/24 tablet Pain #25 tabs valsartan 160 mg tablet 160 mg PO BID blood pressure #60 07/30/24 tabs atorvastatin 40 mg tablet (Lipitor) 40 mg PO DAILY #90 tabs 09/16/24 isosorbide mononitrate 60 mg 60 mg PO BID #180 tabs 09/30/24 tablet,extended release 24 hr paroxetine HCl 10 mg tablet See Rx Instructions .Route 11/06/24 .COMPLEX #90 tabs prednisone 20 mg tablet See Rx Instructions PO .COMPLEX 11/25/24 PRN joint pain flare #30 tabs furosemide 20 mg tablet (Lasix) 20 mg PO QAM PRN edema #30 tabs 01/31/25 budesonide-formoterol HFA 80 See Rx Instructions .Route 02/19/25 mcg-4.5 mcg/actuation aerosol .COMPLEX #10.2 grams inhaler (Symbicort) metoclopramide HCl 10 mg tablet 10 mg PO QID PRN nausea and 02/19/25 vomiting #120 tabs nystatin 100,000 unit/mL oral 5 ml PO QID 7 days #140 mL 02/19/25 suspension pantoprazole 20 mg tablet,delayed 20 mg PO DAILY acid reflux #60 tabs 02/19/25 release carvedilol 12.5 mg tablet 12.5 mg PO BID #90 tabs 03/11/25 topiramate 100 mg tablet (Topamax) 100 mg PO BID #60 tabs 03/18/25 hydrocodone 5 mg-acetaminophen 325 1 tab PO Q8H PRN pain 7 days #21 03/21/25 mg tablet tabs abatacept 125 mg/mL subcutaneous 125 mg SUBCUT .Q7days #4 mL 03/24/25 syringe (Orencia) hydroxychloroquine 200 mg tablet 200 mg PO BID #180 tabs 03/24/25 prednisone 5 mg tablet 5 mg PO DAILY #90 tabs 03/24/25 pregabalin 150 mg capsule 150 mg PO BID #60 caps 03/24/25 Allergies Allergy/AdvReac Type Severity Reaction Status Date / Time Penicillins Allergy hives Verified 03/24/25 14:33 Sulfa (Sulfonamide Allergy Rash Verified 03/24/25 14:33 Antibiotics) leflunomide AdvReac Intermediate Hiar loss Verified 03/24/25 14:33 Review of Systems Const: Denies: fever(s) or chills Card: Denies: chest pain Resp: Denies: dyspnea GI: Denies: abdominal pain : Denies: dysuria, urinary frequency or urinary urgency Musc: Denies: neck pain or back pain Skin/Breast: Denies: rash [facility] PFS: Medical History Tobacco use disorder, severe, dependence Tongue abnormality Urge incontinence of urine Weight gain, abnormal Allergic rhinitis due to allergen [place] on CPAP Gastroparesis GERD (gastroesophageal reflux disease) Dysphagia Fracture of spinous process of cervical vertebra Traumatic compression fracture of thoracic vertebra Atherosclerosis of coronary artery of [place] heart without angina pectoris placement of stents [place] [address] Kumari COPD (chronic obstructive pulmonary disease) Started smoking at age 18, 1ppd Smoker Started smoking around age 18, 1ppd Obesity (BMI 30.0-34.9) Mixed anxiety depressive disorder Seronegative rheumatoid arthritis of both hands Spasm of back muscles High risk medication use Fibromyalgia Inflammatory arthritis Raynaud phenomenon Chronic back pain greater than 3 months duration Peripheral sensory-motor axonal polyneuropathy Cervical post-laminectomy syndrome 04/05/2016 Dr. Alma Harvey C5-C6 ACDFF Cervical intraepithelial neoplasia grade 2 Colon polyps Needs colonoscopy in 2019 Post-traumatic stress disorder, chronic Opioid-induced hyperalgesia Surgical History History of cervical spinal surgery 04/04/2016 Dr. Alma Harvey C5-C7 ACDFF Status post colonoscopy with polypectomy (05/21/20) polyp - repeat in 5 years H/O esophagogastroduodenoscopy (05/21/20) Status post LEEP (loop electrosurgical excision procedure) of cervix 05/21/2020---LEEP procedure performed at time of hysteroscopy for ESVIN-[address] Love at [facility]. Pathology showed HPV changes and chronic inflammation with negative margins. Post LEEP ECC showed benign endocervical tissue, Status post hysteroscopy 05/21/2020--hysteroscopy D&C performed at [facility] by Dr. Love for MARTINEZ-pathology showed benign lower uterine segment epithelium and stroma. S/P cholecystectomy Open procedure performed in 1989 at [facility] by Dr. Menon Hx of right coronary artery stent placement 2017 Dr Kumari at [facility]. Family History Grandfather Heart disease maternal and paternal Grandmother Heart disease maternal and paternal Mother Diabetes Hypertension Hyperlipidemia Sister Hypertension Thyroid disease Father CAD (coronary artery disease), Onset Age: 50 Other Cancer Chronic kidney disease (CKD) Lung disease Lupus Rheumatoid arthritis Stroke Denies family history of Clotting disorder Suicide Anesthesia complication Bleeding disorder Social History Smoking and tobacco/nicotine status: unknown if used tobacco/nicotine Quit status (tobacco/nicotine): considering quitting Alcohol intake: never Substance/Drug Use: never Adopted: No Caregiver/support person: No Lives independently: Yes Physical Exam Const: GENERAL APPEARANCE: cooperative ORIENTATION/CONSCIOUSNESS: Yes awake, Yes oriented to person, Yes oriented to place and Yes oriented to time HENMT: COMMON NORMALS: normocephalic, atraumatic and hearing grossly normal bilaterally HEAD & SCALP: normocephalic and atraumatic Resp: COMMON NORMALS: normal respiratory effort, No retractions, No use of accessory muscles and clear to auscultation bilaterally AUSCULTATION: clear to auscultation bilaterally Cardio: COMMON NORMALS: regular rate, regular rhythm and No murmurs present (Cardio) RATE: regular rate RHYTHM: regular rhythm GI: COMMON NORMALS: Soft to palpation and No hepatosplenomegaly present AUSCULTATION: Yes normoactive bowel sounds PALPATION: Yes Soft to palpation, No Tenderness to palpation present (GI), No Guarding due to palpation present (GI) and Yes No hepatosplenomegaly present Extremity: COMMON NORMALS: normal to inspection, capillary refill normal, no clubbing, cyanosis or edema, no calf tenderness and no pedal edema OTHER: Neurovascular both lower extremities are intact dorsalis pedis pulses and posterior tibialis pulses normal bilaterally easily palpable Neuro: SENSORIUM/ORIENTATION: Yes oriented to person, Yes oriented to place and Yes oriented to time Skin: COMMON NORMALS: no rashes or lesions noted GENERAL SKIN EXAM: no rashes or lesions noted Course Vital Signs: Vital signs: Vital Signs Temperature 97.3 F L 04/03/25 12:45 Pulse Rate 50 L 04/03/25 15:03 Respiratory Rate 16 04/03/25 15:03 Blood Pressure 119/79 04/03/25 15:03 Pulse Oximetry 99 04/03/25 15:03 Oxygen Delivery Me thod Room Air 04/03/25 12:45 MDM - Chest Pain Medical Decision Making No acute findings on EKG cardiac enzymes did not trend positive. Patient is not having any classic coronary symptoms at this time. Continue current medications. As to her concerns like she has very good palpable pulses do not think she needs to do anything different. Recheck with her primary care doctor Medical Records I reviewed the patient's medical records. Lab Data I reviewed the patient's lab results. 04/03/25 12:40 04/03/25 12:40 Radiology Impressions Chest X-Ray 04/03/25 12:46 IMPRESSION: 1. No acute cardiopulmonary finding. Laboratory Results WBC 6.40 10^3/uL (3.29-11.43) 04/03/25 12:40 RBC 3.89 10^6/uL (3.85-5.65) 04/03/25 12:40 Hgb 11.30 g/dL (11.27-16.99) 04/03/25 12:40 Hct 34.6 % (36-47) L 04/03/25 12:40 MCV 88.9 fl (85-98) 04/03/25 12:40 MCH 29.0 pg (27-33) 04/03/25 12:40 MCHC 32.7 g/dL (30-55) 04/03/25 12:40 RDW 14.6 % (12.1-15.1) 04/03/25 12:40 Plt Count 183 10^3/cmm (157-399) 04/03/25 12:40 MPV 10.8 fL (7.4-10.4) H 04/03/25 12:40 Neut % (Auto) 55.6 % 04/03/25 12:40 Lymph % (Auto) 34.2 % 04/03/25 12:40 [place] % (Auto) 7.3 % 04/03/25 12:40 Eos % (Auto) 1.6 % 04/03/25 12:40 Baso % (Auto) 1.1 % 04/03/25 12:40 Neut # (Auto) 3.56 10^3/uL (1.8-7.7) 04/03/25 12:40 Lymph # (Auto) 2.2 10^3/uL (0.8-4.8) 04/03/25 12:40 [place] # (Auto) 0.5 10^3/uL (0.2-0.9) 04/03/25 12:40 Eos # (Auto) 0.1 10^3/uL (0.0-0.8) 04/03/25 12:40 Baso # (Auto) 0.1 10^3/uL (0.0-0.1) 04/03/25 12:40 Nucleated RBC % (auto) 0 % 04/03/25 12:40 Nucleated RBCs # 0.0 /100WBC 04/03/25 12:40 Sodium 143 mmol/L (136-145) 04/03/25 12:40 Potassium 3.8 mmol/L (3.5-5.1) 04/03/25 12:40 Chloride 111 mmol/L (98-107) H 04/03/25 12:40 Carbon Dioxide 20 mmol/L (22-29) L 04/03/25 12:40 Anion Gap 15.8 (5-19) 04/03/25 12:40 BUN 11 mg/dL (6-20) 04/03/25 12:40 Creatinine 0.7 mg/dL (0.5-0.9) 04/03/25 12:40 GFR Calculation 86.6 mL/min (90-130) L 04/03/25 12:40 Glucose 118 mg/dL (65-115) H 04/03/25 12:40 Calculated Osmolality 296 mOsm/kg (285-295) H 04/03/25 12:40 Calcium 8.7 mg/dL (8.5-10.5) 04/03/25 12:40 Total Bilirubin 0.3 mg/dL (0.15-1.2) 04/03/25 12:40 AST 21 U/L (0-32) 04/03/25 12:40 ALT 19 U/L (0-33) 04/03/25 12:40 Alkaline Phosphatase 190 U/L (35-105) H 04/03/25 12:40 Troponin T Baseline 7 ng/L (0-10) 04/03/25 12:40 Troponin T 120 Minute < 6.0 ng/L (0-10) 04/03/25 13:52 Delta Troponin T -[id number] ABS# (0-10) L 04/03/25 13:52 Total Protein 6.3 g/dL (6.6-8.7) L 04/03/25 12:40 Albumin 3.5 g/dL (3.5-5.2) 04/03/25 12:40 Globulin 2.8 g/dL (1.3-4.6) 04/03/25 12:40 All radiology interpretation(s) finalized by discharge Discharge Plan Discharge Patient Disposition: Home Clinical Impression: Atypical chest pain Condition: Stable Prescriptions: No Action aspirin 81 mg tablet,delayed release (DR/EC) 81 mg PO DAILY (DME) Cervical Collar See Rx Instructions .Route .MEDSUPPLY Qty: 1 0RF Rx Instructions: As directed cholecalciferol (vitamin D3) 25 mcg (1,000 unit) capsule 25 mcg PO DAILY magnesium hydroxide 400 mg (170 mg magnesium) tablet,chewable 400 mg PO DAILY H2Q CoQ10 200 mg/gram powder 200 mg PO DAILY budesonide-formoterol [Symbicort] 80-4.5 mcg/actuation HFA aerosol inhaler See Rx Instructions .ROUTE .COMPLEX Qty: 10.2 2RF Dose Instruction: INHALE 2 PUFFS BY MOUTH TWICE DAILY FOR BREATHING Rx Instructions: INHALE 2 PUFFS BY MOUTH TWICE DAILY FOR BREATHING pantoprazole 20 mg tablet,delayed release (DR/EC) 20 mg PO DAILY Qty: 60 1RF metoclopramide HCl 10 mg tablet 10 mg PO QID PRN (Reason: nausea and vomiting) Qty: 120 5RF Rx Instructions: Take 1 before meals and at bedtime nystatin 100,000 unit/mL suspension 5 ml PO QID 7 Days Qty: 140 0RF Rx Instructions: swish for several minutes and swallow topiramate [Topamax] 100 mg tablet 100 mg PO BID Qty: 60 0RF loratadine 10 mg tablet 10 mg PO DAILY Qty: 90 1RF prednisone 20 mg tablet See Rx Instructions PO .COMPLEX PRN (Reason: joint pain flare) Qty: 30 1RF Rx Instructions: take 1 daily for 3-7 days PRN joint pain flare PO PRN; (DME) [place] J with somi extension See Rx Instructions .Route .MEDSUPPLY Qty: 1 0RF Rx Instructions: As directed albuterol sulfate [ProAir HFA] 90 mcg/actuation HFA aerosol inhaler 1 puff inhalation Q4H PRN (Reason: Shortness Of Breath Or Wheezing) Qty: 8.5 5RF (DME) CPAP auto titrating See Rx Instructions .Route .MEDSUPPLY Qty: 1 0RF Rx Instructions: As directed with setting of 6-16 auto titrating clopidogrel [Plavix] 75 mg tablet 75 mg PO DAILY Qty: 90 3RF nitroglycerin 0.4 mg tablet, sublingual 0.4 mg SUBLINGUAL Q5M PRN (Reason: Chest Pain) Qty: 25 3RF valsartan 160 mg tablet 160 mg PO BID Qty: 60 5RF Rx Instructions: MUST KEEP YOUR SCHEDULED APPOINTMENT PRIOR TO ANY MORE REFILLS atorvastatin [Lipitor] 40 mg tablet 40 mg PO DAILY Qty: 90 3RF isosorbide mononitrate 60 mg tablet extended release 24 hr 60 mg PO BID Qty: 180 3RF paroxetine HCl 10 mg tablet See Rx Instructions .ROUTE .COMPLEX Qty: 90 4RF Dose Instruction: TAKE 1 TABLET BY MOUTH DAILY AT BEDTIME Rx Instructions: TAKE 1 TABLET BY MOUTH DAILY AT BEDTIME furosemide [Lasix] 20 mg tablet 20 mg PO QAM PRN (Reason: edema) Qty: 30 3RF carvedilol 12.5 mg tablet 12.5 mg PO BID Qty: 90 0RF Rx Instructions: must administer with a meal/food hydrocodone-acetaminophen 5-325 mg tablet 1 tab PO Q8H PRN (Reason: pain) 7 Days Qty: 21 0RF Orencia 125 mg/mL syringe 125 mg SUBCUT .Q7days Qty: 4 5RF hydroxychloroquine 200 mg tablet 200 mg PO BID Qty: 180 1RF prednisone 5 mg tablet 5 mg PO DAILY Qty: 90 1RF pregabalin 150 mg capsule 150 mg PO BID Qty: 60 3RF Discharge Orders: Discharge ED (Routine); Ordered 04/03/25 Ordered By: Ji Harris Referrals: Jaspal Donnelly MD [Primary Care Provider, Family Practice] Discharge Diet: Usual diet Discharge Activity: Resume usual activity Patient Instructions: Opioid Safety, Pain Management, Patient Portal & Kris Instructions Activity Restrictions/Additional Instructions: Thank you for choosing [facility] for your healthcare needs today. It is very important that you follow up as instructed or that you return to the Emergency Department should you have concerns or if your condition changes or worsens in any way. You were seen in the emergency room with complaints of chest that have been going on for several days. Your EKG did not show any acute changes your cardiac enzyme was normal was normal. Will discharge home recommend you follow-up with your primary care doctor as needed continue your Lasix as needed for the leg edema. From her description of the edema it is likely dependent. As far as the blood flow to your lower extremities goes the Pulses in your lower extremities are normal. Print Language: Jordanian Coding Level of Care Code ED Senior Field Service Engineer for Mauricio Cota
[2025-04-03 13:13] LABS: Troponin(5th) Baseline 7 ng/L (0-10)
[2025-04-03 13:18] LABS: Alanine Aminotransferase 19 U/L (0-33); Albumin Level 3.5 g/dL (3.5-5.2); Alkaline Phosphatase 190 U/L (35-105); Aspartate Amino Transferase 21 U/L (0-32); Blood Urea Nitrogen 11 mg/dL (6-20); Calcium 8.7 mg/dL (8.5-10.5); Carbon Dioxide 20 mmol/L (22-29); Chloride 111 mmol/L (98-107); Creatinine Clr Calc Pharmacy 102.4822; Globulin 2.8 g/dL (1.3-4.6); Glucose 118 mg/dL (65-115); Osmolality Calculated 296 mOsm/kg (285-295); Sodium 143 mmol/L (136-145); Total Protein 6.3 g/dL (6.6-8.7)
[2025-04-03 13:20] LABS: Anion Gap 15.8 (5-19); Potassium 3.8 mmol/L (3.5-5.1)
--- NOTE | 2025-04-03 13:40 | PC.NURSE ---
this nurse assumed pt care from KATELIN Ortiz at 1300.
[2025-04-03 14:00] VITALS: BP 113/62; PULSE 52; RESP 16; O2SAT 100
[2025-04-03 14:19] LABS: Troponin 5 2HR < 6.0 ng/L (0-10)
[2025-04-03 14:21] LABS: Troponin 5 2HR Delta -1.00001 ABS# (0-10)
[2025-04-03 15:03] VITALS: BP 119/79; PULSE 50; RESP 16; O2SAT 99
== END 2025-04-03 15:02 | disposition home or self-care (01) ==
PROVIDERS: Emergency Provider Family Medicine; PCP Family Medicine
DX: R07.89 Other chest pain (principal); G47.33 Obstructive sleep apnea (adult) (pediatric); J44.9 Chronic obstructive pulmonary disease, unspecified; E66.9 Obesity, unspecified; Z68.30 Body mass index [BMI] 30.0-30.9, adult; Z79.82 Long term (current) use of aspirin; Z88.0 Allergy status to penicillin; Z88.2 Allergy status to sulfonamides
CPT/HCPCS: 36415; 71045; 80053; 84484; 85025; 93005; 99285

== ENCOUNTER → 2025-04-08 10:35 | Outpatient (BNVA) | payer MEDICAID, SELFPAY | PROVIDERS: PCP Family Medicine; Visit Provider Physician Assistant | DX: M25.522 Pain in left elbow (principal); G56.02 Carpal tunnel syndrome, left upper limb; G56.22 Lesion of ulnar nerve, left upper limb | CPT/HCPCS: 73080; 99204 ==

== ENCOUNTER → 2025-04-11 09:41 | Outpatient (BNVA) | payer MEDICAID, SELFPAY | PROVIDERS: PCP Family Medicine; Visit Provider Nurse Practitioner Family | DX: I25.10 Atherosclerotic heart disease of native coronary artery without angina pectoris (principal); I10 Essential (primary) hypertension; E78.5 Hyperlipidemia, unspecified; Z79.82 Long term (current) use of aspirin; F17.210 Nicotine dependence, cigarettes, uncomplicated; Z95.5 Presence of coronary angioplasty implant and graft; R42 Dizziness and giddiness; R07.9 Chest pain, unspecified | CPT/HCPCS: 99214 ==

== ENCOUNTER 2025-04-18 13:48 | Outpatient (CLI) | payer MEDICAID, SELFPAY ==
--- NOTE | 2025-04-18 14:30 | USCV_ITS ---
Alex Malhotra Age: 54 Gender: F : 1970 Exam Date: 04/18/2025 14:44 Ordering Phys: Denisse Mckinley NP Technologist: KWASI Exam Location: [facility] [place] Indication: balanace issues Risk Factors: Previous Vascular Surgery: Right Brachial BP: / Left Brachial BP: / Right Left Velocity (cm/s) Spectral Plaque Velocity (cm/s) Spectral Plaque Syst/Diast Broadening Syst/Diast Broadening 97.10/ 29.60 Prox CCA 90.00 / 30.80 79.70/ 25.30 Mid CCA 93.70 / 28.90 102.70/35.80 Distal CCA 91.90 / 28.90 48.70/ 17.10 Prox ICA 52.50 / 23.90 55.60/ 15.90 Mid ICA 57.70 / 22.20 65.00/ 27.60 Distal ICA 58.50 / 28.20 60.20 ECA 79.50 0.60 ICA/CCA 0.60 Antegrade Vertebral Antegrade 33.30/ 12.50 cm/s 32.40/ 13.90 cm/s Tri Subclavian Tri 72.80 95.60 FINDINGS Comparison: none available. No significant elevation of systolic or diastolic velocities. Waveforms are normal. No significant amount of calcified plaque or intimal thickening identified. CONCLUSIONS Normal carotid doppler ultrasound. Dr. Dionne Holland DO (Electronically Signed) Final Date: 18 April 2025 15:28 S
== END 2025-04-18 13:49 | disposition home or self-care (01) ==
LOC: RAD 13:48
PROVIDERS: PCP Family Medicine; Visit Provider Nurse Practitioner Family
DX: R42 Dizziness and giddiness (principal)
CPT/HCPCS: 93880

== ENCOUNTER 2025-04-23 06:36 | Outpatient (CLI) | payer MEDICAID, SELFPAY ==
--- NOTE | 2025-04-23 | ECG_ITS ---
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 Interpretive Statements LEXISCAN SESTAMIBI STRESS TEST Procedure: At the baseline, the blood pressure was 100/72 mmHg with a heart rate of 51 bpm. The electrocardiogram showed normal sinus rhythm, normal axis with minor ST depression and T wave flattening The Lexiscan was infused over a period of 20 seconds. A total of 0.4 mg of Lexiscan was infused. The stress phase was continued for a total of 5 minutes. Heart rate was at the end of stress phase was 71 bpm and a blood pressure of 98/63 mmHg. The EKG at the peak infusion revealed normal sinus rhythm with no significant ST-T wave changes. Sestamibi was injected 20 seconds after the Lexiscan infusion. Blood pressure at the end of recovery phase was 101/63 mmHg with a heart rate of 66 bpm. Conclusion: 1. Normal EKG response to Lexiscan infusion 2. No Lexiscan induced chest pain or cardiac arrhythmia. 3. Normal blood pressure and heart rate response. 4. Nuclear myocardial perfusion scan pending; see separate report. Electronically Signed On 04-27-2025 12:54:27 CDT by Matt Jaime M.D. [email or web address]
--- NOTE | 2025-04-23 06:48 | NMCV_ITS ---
NM carmelina perf SPECT r/s* [id number] Malhotra Carlosdayana Age: 54 Gender: F : 1970 Exam Date: 04/23/2025 07:36 Ordering Phys: Denisse Mckinley NP Technologist: BREANNA Perdomo Exam Location: [facility] Indications: cp STRESS TEST Please see separate stress test report in [facility] for full findings IMAGE PROTOCOL Rest/Stress 1 Lexiscan Day Radiopharmaceutical Dose (mCi) Administration Site Administered by Rest: Tc-99m 10.6 IV BREANNA Ya Sestamibi Stress:Tc-99m 32.8 IV BREANNA Perdomo Sestamiguerline Rest: 23-Apr-2025 60 Discovery 630 Stress: 23-Apr-2025 30 Discovery 630 0.4mg Lexiscan. Images obtained in supine and prone position. SPECT RESULTS Technical Quality: Good Raw Data Analysis: Normal Image Corrections: No attenuation or motion correction applied Summed Stress Score: 1 Summed Rest Score: 5 Summed Difference Score: 0 PERFUSION FINDINGS SPECT images demonstrate homogeneous tracer distribution throughout the myocardium. FUNCTIONAL RESULTS (calculated via Gated SPECT) Stress Image LV EF (%): 71 Stress EDV (mL):108 TID: 1.17 Stress ESV (mL):31 FUNCTIONAL FINDINGS: There is normal left ventricular systolic function. IMPRESSIONS Myocardial perfusion imaging is normal. No infarction or inducible ischemia. Normal left ventricular systolic function, EF 71% Matt Jaime MD, FACC (Electronically Signed) Final Date: 23 April 2025 22:39 S
[2025-04-23 06:49] VITALS: BMI 30.5
[2025-04-23 08:30] VITALS: BP 101/63; PULSE 65
== END 2025-04-23 06:37 | disposition home or self-care (01) ==
LOC: CDL 06:37
PROVIDERS: PCP Family Medicine; Visit Provider Nurse Practitioner Family
DX: R07.9 Chest pain, unspecified (principal)
CPT/HCPCS: 36415; 78452; 93017; 96374; A9500; J2785

== ENCOUNTER → 2025-05-06 09:02 | Outpatient (BNVA) | payer MEDICAID, SELFPAY | PROVIDERS: PCP Family Medicine; Visit Provider Orthopaedic Surgery | DX: Z98.1 Arthrodesis status (principal) | CPT/HCPCS: 72040; 99213 ==

== ENCOUNTER → 2025-05-19 13:32 | Outpatient (BNVA) | payer MEDICAID, SELFPAY | PROVIDERS: PCP Family Medicine; Visit Provider Anesthesiology Pain Medicine | DX: M54.2 Cervicalgia (principal); M54.9 Dorsalgia, unspecified; M47.22 Other spondylosis with radiculopathy, cervical region; M51.17 Intervertebral disc disorders with radiculopathy, lumbosacral region; M51.16 Intervertebral disc disorders with radiculopathy, lumbar region; M47.816 Spondylosis without myelopathy or radiculopathy, lumbar region; M62.830 Muscle spasm of back; G60.8 Other hereditary and idiopathic neuropathies; Z87.891 Personal history of nicotine dependence | CPT/HCPCS: 99214 ==

== ENCOUNTER 2025-05-22 08:40 | Day surgery (SDC) | payer MEDICAID, SELFPAY ==
[2025-05-22] VITALS (9 sets, daily range): BP systolic 95–158; BP diastolic 66–98; PULSE 48–60; RESP 16–18; TEMP 36.1–36.3; O2SAT 97–100; BMI 31.0
--- NOTE | 2025-05-22 09:14 | ANES.PREANE2 ---
Pre-Anesthetic Assessment Height/Weight: Height 5 ft 7 in Preop Diagnosis: Cubital tunnel syndrome Operation Date: 05/22/25 10:15 Proposed Procedures p LEFT Carpal Tunnel Release(Left) - Jose Luis Jj, DO s LEFT Cubital Tunnel Release(Left) - Jose Luis Ferry, DO s POSSIBLE Ulnar Nerve Transposition(Left) - Jose Luis Jj, DO Was Beta Nereyda taken within 24 hours: Yes Was Clonidine taken within 24 hours: N/A Social No alcohol and No tobacco Exam alert, oriented x 3, clear to auscultation bilaterally and regular rate & rhythm Airway Submandibular: within normal limits Cervical ROM: within normal limits Mallampati: Class III Dentition: full Anesthetic Plan ASA status: 3 Anesthesia: General Other: No prior issues with anesthesia NPO since yesterday evening History of hypertension on carvedilol and valsartan Current smoker GERD, controlled with Protonix CAD history, s/p PCI. Patient last took Plavix 2 days ago Labs 04/03/2025 reviewed and acceptable for procedure Stress test in March was negative Plan for general anesthesia with local via surgeon Medications/Allergies Home Medications ?Medication ?Instructions ?Recorded ?Confirmed ?Last Taken ?Type aspirin 81 mg tablet,delayed 81 mg PO DAILY 03/17/20 05/22/25 05/20/25 History release Held on 04/15/24. Instructions: Resume on 04/16/24. cholecalciferol (vitamin D3) 25 25 mcg PO DAILY 04/18/23 05/21/25 05/21/25 History mcg (1,000 unit) capsule coenzyme Q10 200 mg/gram oral 200 mg PO DAILY 04/18/23 05/21/25 05/21/25 History powder (H2Q CoQ10) magnesium hydroxide 400 mg (170 mg 400 mg PO DAILY 04/18/23 05/21/25 05/21/25 History magnesium) chewable tablet albuterol sulfate 90 mcg/actuation 1 puff inhalation Q4H PRN 04/25/23 05/22/25 04/13/24 Rx aerosol inhaler (ProAir HFA) Shortness Of Breath Or Wheezing #8.5 grams loratadine 10 mg tablet 10 mg PO DAILY congestion #90 tabs 10/05/23 05/21/25 05/21/25 Rx CPAP auto titrating #1 ea 12/04/23 05/19/25 04/12/24 Rx nitroglycerin 0.4 mg sublingual 0.4 mg sublingual Q5M PRN Chest 02/20/24 05/21/25 04/02/25 Rx tablet Pain #25 tabs atorvastatin 40 mg tablet (Lipitor) 40 mg PO DAILY #90 tabs 09/16/24 05/22/25 05/21/25 Rx isosorbide mononitrate 60 mg 60 mg PO BID #180 tabs 09/30/24 05/22/25 05/22/25 Rx tablet,extended release 24 hr furosemide 20 mg tablet (Lasix) 20 mg PO QAM PRN edema #30 tabs 01/31/25 05/21/25 05/21/25 Rx metoclopramide HCl 10 mg tablet 10 mg PO QID PRN nausea and 02/19/25 05/21/25 05/21/25 Rx vomiting #120 tabs pantoprazole 20 mg tablet,delayed 20 mg PO DAILY acid reflux #60 tabs 02/19/25 05/21/25 05/21/25 Rx release abatacept 125 mg/mL subcutaneous 125 mg SUBCUT .Q7days #4 mL 03/24/25 05/22/25 Unknown Rx syringe (Orencia) hydroxychloroquine 200 mg tablet 200 mg PO BID #180 tabs 03/24/25 05/22/25 05/21/25 Rx pregabalin 150 mg capsule 150 mg PO BID #60 caps 03/24/25 05/21/25 05/21/25 Rx clopidogrel 75 mg tablet (Plavix) 75 mg PO DAILY #90 tabs 04/04/25 05/22/25 05/19/25 Rx valsartan 160 mg tablet 160 mg PO BID blood pressure #60 04/04/25 05/21/25 05/21/25 Rx tabs ranolazine 500 mg tablet,extended 500 mg PO BID #60 tabs 04/11/25 05/21/25 05/21/25 Rx release,12 hr carvedilol 12.5 mg tablet 12.5 mg PO BID #90 tabs 05/08/25 05/22/25 05/21/25 Rx topiramate 100 mg tablet (Topamax) 100 mg PO QDAY 05/12/25 05/21/25 05/21/25 History budesonide-formoterol HFA 80 2 puff inhalation BID 05/21/25 05/21/25 05/21/25 History mcg-4.5 mcg/actuation aerosol inhaler (Symbicort) paroxetine HCl 10 mg tablet 10 mg PO BEDTIME 05/21/25 05/21/25 05/21/25 History Allergies Allergy/AdvReac Type Severity Reaction Status Date / Time Penicillins Allergy hives Verified 05/22/25 09:06 Sulfa (Sulfonamide Allergy Rash Verified 05/22/25 09:06 Antibiotics) leflunomide AdvReac Intermediate Hiar loss Verified 05/22/25 09:06 [facility] Anesthesia Medical History Tobacco use disorder, severe, dependence Tongue abnormality Urge incontinence of urine Weight gain, abnormal Allergic rhinitis due to allergen 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 Kumari COPD (chronic obstructive pulmonary disease) Started smoking at age 18, 1ppd Smoker Started smoking around age 18, 1ppd Obesity (BMI 30.0-34.9) Mixed anxiety depressive disorder Seronegative rheumatoid arthritis of both hands Spasm of back muscles High risk medication use Fibromyalgia Inflammatory arthritis Raynaud phenomenon Chronic back pain greater than 3 months duration Peripheral sensory-motor axonal polyneuropathy Cervical post-laminectomy syndrome 04/05/2016 Dr. Alma Harvey C5-C6 ACDFF Cervical intraepithelial neoplasia grade 2 Colon polyps Needs colonoscopy in 2019 Post-traumatic stress disorder, chronic Opioid-induced hyperalgesia Surgical History History of cervical spinal surgery 04/04/2016 Dr. Alma Harvey C5-C7 ACDFF Status post colonoscopy with polypectomy (05/21/20) polyp - repeat in 5 years H/O esophagogastroduodenoscopy (05/21/20) Status post LEEP (loop electrosurgical excision procedure) of cervix 05/21/2020---LEEP procedure performed at time of hysteroscopy for ESVIN-[address] Love at [facility] [place]. Pathology showed HPV changes and chronic inflammation with negative margins. Post LEEP ECC showed benign endocervical tissue, Status post hysteroscopy 05/21/2020--hysteroscopy D&C performed at [facility] [place] by Dr. Love for MARTINEZ-pathology showed benign lower uterine segment epithelium and stroma. S/P cholecystectomy Open procedure performed in 1989 at [facility] [place] by Dr. Menon Hx of right coronary artery stent placement 2017 Dr Kumari at [facility] [place]. Family History Grandfather Heart disease maternal and paternal Grandmother Heart disease maternal and paternal Mother Diabetes Hypertension Hyperlipidemia Sister Hypertension Thyroid disease Father CAD (coronary artery disease), Onset Age: 50 Other Cancer Chronic kidney disease (CKD) Lung disease Lupus Rheumatoid arthritis Stroke Denies family history of Clotting disorder Suicide Anesthesia complication Bleeding disorder Social History Smoking and tobacco/nicotine status: former use of tobacco/nicotine Quit status (tobacco/nicotine): considering quitting Alcohol intake: never Substance/Drug Use: never Adopted: No Caregiver/support person: No Lives independently: Yes Data Anesthesia Cardiac Studies: Sestamibi Stress Test (Cardiology) 04/23/25
[2025-05-22] MEDS: acetaminophen 1,000 MG/100 ML PIGGYBACK 400 MG IV (09:44)
--- NOTE | 2025-05-22 10:24 | W.PM.OPSFHP ---
Same Day Surgery H&P Indication for Procedure/HPI DATE OF PROCEDURE: May 22, 2025 CHIEF COMPLAINT/INDICATIONFOR SURGICAL PROCEDURE: Left carpal tunnel syndrome left cubital tunnel syndrome PREOP DIAGNOSIS: Left carpal tunnel syndrome, left cubital tunnel syndrome PLANNED PROCEDURE: Operation Date: 05/22/25 10:15 Proposed Procedures p LEFT Carpal Tunnel Release(Left) - Jose Luis Gillespie, DO s LEFT Cubital Tunnel Release(Left) - Jose Luis Gillespie, DO s POSSIBLE Ulnar Nerve Transposition(Left) - Jose Luis Gillespie, DO Medications/Allergies* Home Medications ?Medication ?Instructions ?Recorded ?Confirmed ?Type aspirin 81 mg tablet,delayed 81 mg PO DAILY 03/17/20 05/22/25 History release Held on 04/15/24. Instructions: Resume on 04/16/24. cholecalciferol (vitamin D3) 25 25 mcg PO DAILY 04/18/23 05/22/25 History mcg (1,000 unit) capsule coenzyme Q10 200 mg/gram oral 200 mg PO DAILY 04/18/23 05/21/25 History powder (H2Q CoQ10) magnesium hydroxide 400 mg (170 mg 400 mg PO DAILY 04/18/23 05/22/25 History magnesium) chewable tablet topiramate 100 mg tablet (Topamax) 100 mg PO QDAY 05/12/25 05/22/25 History budesonide-formoterol HFA 80 2 puff inhalation BID 05/21/25 05/22/25 History mcg-4.5 mcg/actuation aerosol inhaler (Symbicort) paroxetine HCl 10 mg tablet 10 mg PO BEDTIME 05/21/25 05/22/25 History Allergies/Adverse Reactions Allergy/AdvReac Type Severity Reaction Status Date / Time Penicillins Allergy hives Verified 05/22/25 09:06 Sulfa (Sulfonamide Allergy Rash Verified 05/22/25 09:06 Antibiotics) leflunomide AdvReac Intermediate Hiar loss Verified 05/22/25 09:06 Current Medications: Generic Name Dose Route Start Last Admin Trade Name Freq PRN Reason Stop Dose Admin Sodium Chloride 1,000 mls @ 30 mls/hr 05/22/25 09:00 05/22/25 09:39 Sodium Chloride 0.9% IV 05/23/25 08:59 30 mls/hr .Q24H LLOYD Administration Pertinent History/Comorbid Conditions* Medical History (Updated 05/12/25 @ 11:50 by Jaspal Donnelly MD) Tobacco use disorder, severe, dependence Tongue abnormality Urge incontinence of urine Weight gain, abnormal Allergic rhinitis due to allergen [place] on CPAP Gastroparesis GERD (gastroesophageal reflux disease) Dysphagia Fracture of spinous process of cervical vertebra Traumatic compression fracture of thoracic vertebra Atherosclerosis of coronary artery of [place] heart without angina pectoris [place] stents [place] [address] Kumari COPD (chronic obstructive pulmonary disease) Started smoking at age 18, 1ppd Smoker Started smoking around age 18, 1ppd Obesity (BMI 30.0-34.9) Mixed anxiety depressive disorder Seronegative rheumatoid arthritis of both hands Spasm of back muscles High risk medication use Fibromyalgia Inflammatory arthritis Raynaud phenomenon Chronic back pain greater than 3 months duration Peripheral sensory-motor axonal polyneuropathy Cervical post-laminectomy syndrome 04/05/2016 Dr. Alma Harvey C5-C6 ACDFF Cervical intraepithelial neoplasia grade 2 Colon polyps Needs colonoscopy in 2019 Post-traumatic stress disorder, chronic Opioid-induced hyperalgesia Surgical History (Updated 05/30/24 @ 13:45 by Drake Ibarra DO) History of cervical spinal surgery 04/04/2016 Dr. Alma Harvey C5-C7 ACDFF Status post colonoscopy with polypectomy (05/21/20) polyp - repeat in 5 years H/O esophagogastroduodenoscopy (05/21/20) Status post LEEP (loop electrosurgical excision procedure) of cervix 05/21/2020---LEEP procedure performed at time of hysteroscopy for ESVIN-[address] Love at [facility] [place]. Pathology showed HPV changes and chronic inflammation with negative margins. Post LEEP ECC showed benign endocervical tissue, Status post hysteroscopy 05/21/2020--hysteroscopy D&C performed at [facility] [place] by Dr. Love for MARTINEZ-pathology showed benign lower uterine segment epithelium and stroma. S/P cholecystectomy Open procedure performed in 1989 at [facility] [place] by Dr. Menon Hx of right coronary artery stent placement 2017 Dr Kumari at [facility] [place]. Family History (Updated 05/11/22 @ 14:16 by Neelam Grewal RN) Rheumatoid arthritis Diabetes Mother Lupus CAD (coronary artery disease) Father, Onset Age: 50 Heart disease Grandfather maternal and paternal Grandmother maternal and paternal Hyperlipidemia Mother Chronic kidney disease (CKD) Lung disease Cancer Hypertension Mother Sister Thyroid disease Sister Stroke Denies family history of Clotting disorder Suicide Anesthesia complication Bleeding disorder Social History Smoking and tobacco/nicotine status: former use of tobacco/nicotine Quit status (tobacco/nicotine): considering quitting Alcohol intake: never Substance/Drug Use: never Adopted: No Caregiver/support person: No Lives independently: Yes Pertinent Exam Findings alert, oriented x 3, operative site marked and procedure specific exam findings Please refer to detailed orthopedic examination on 04/08/2025 listed below: Left Hand exam-positive Tinel's and positive Phalen's test. no thenar atrophy and no thenar muscle weakness. Full range of motion in fingers and wrist and fingers are warm and well-perfused with normal cap refill under 2 seconds. Radial pulse 2+, positive intrinsic muscle weakness noted. Left Elbow exam-positive Tinel's test Recommendations Risks and benefits of procedure reviewed and Patient/family agree to proceed Surgery/Procedure today Other Plans: Plan to proceed to the OR today for left carpal tunnel release and left cubital tunnel release with possible ulnar nerve transposition. Patient understands incidence procedure of the risk the benefits complication alternatives surgery through shared decision make elects proceed with surgical intervention. All questions answered at this time. Coding Level of Care Code Acute Code for Luis Carlosg Cipriano
[2025-05-22] MEDS: lidocaine-epi 1% 20 mL INJ INJECTION (10:49)
[2025-05-22] MEDS: ROPivacaine 0.5% SDV 30 mL 150 MG INJECTION (10:49)
--- NOTE | 2025-05-22 11:55 | PM.OP ---
Operative Report Date of procedure: May 222024 Surgeon: Jose Luis Gardner DO [employer] Supervisor: Fermin Gardner PA-C: PA was necessary for assistance in this case with hand positioning to execute the procedure, retraction and protection of neurovascular structures as well as to assist with wound closure and dressing application. Procedure: Procedure: Preoperative diagnosis: Left carpal tunnel syndrome Left?cubital tunnel syndrome post-op diagnosis:? Left carpal tunnel syndrome and Left?cubital tunnel syndrome and subluxating ulnar nerve Post-op findings: See operative note Procedure done: Left carpal tunnel release Left?cubital tunnel release(ulnar nerve decompression) Left ulnar nerve?transposition?and neurolysis Surgeon: Jose Luis Gardner DO Estimated blood loss: 10 cc Tourniquet Time: 31 minutes IV fluids: 1000mL Complications: None Findings: See operative report narrative Condition: stable Disposition: same day Brief History: Patient is a pleasant 54-year-old female was seen evaluated in the outpatient setting for Left ulnar nerve neuropathy at the elbow and Left carpal tunnel syndrome. Patient had NCS findings consistent with cubital tunnel syndrome and positive findings on exam for the carpal tunnel as well is.? ?On my examination in the office patient findings are consistent with this preoperative diagnosis. We had detailed discussion in office about continued nonoperative intervention versus operative intervention.? Patient understands the risk benefits complications alternatives to surgical and nonsurgical treatment options.? Patient understands the risks include but not limited to make it better, make it worse, infection, permanent injury to nerve, decreased function and sensation to the hand with persistent weakness.? Given these risks patient understands and agrees to proceed with current plan.? Patient elects to proceed with a surgical intervention and consent was obtained in the preoperative holding area for left carpal tunnel release, and left cubital tunnel release with possible ulnar nerve transposition. all questions answered. Procedure: Patient was seen and evaluated in the preoperative holding area.? The consent that was filled out in office was reviewed with patient. Correct extremity was then marked.? Patient was seen evaluated by the preoperative team as well as anesthesia department.? Once cleared for surgery patient was then taken to the operative suite and?transported onto the operative table all bony prominences were well-padded and patient was secured to the table.? Left upper extremity was placed on an armboard.? Patient then underwent anesthesia per the anesthesia department. The Left upper extremity tourniquet was applied. Patient's Left upper extremity was then prepped and draped in standard orthopedic fashion.? This point a final timeout was performed. Patient received appropriate preop antibiotics. Esmarch tourniquet was used to exsanguinate the operative extremity and was insufflated to 250 mmHg.? I started with the carpal tunnel release first.? I made a standard open carpal tunnel release starting with the distal most extent in the palm at the Fofana's cardinal line and the incision line was made in line with the fourth ray and ended just distal to the wrist crease.? Sharp scalpel incision was made through skin and subcutaneous tissue I then utilizing self retainer then began to dissect with dissection scissors split longitudinally the palmar fascia.? Next I then utilizing my sociology research assistant Silvana retractors subsequently utilizing scalpel feathered through the palmaris brevis as well as through the?transverse carpal ligament distally.? Once I encountered the floor of the?transverse carpal ligament and entered into the carpal tunnel I then switched to dissection scissors.? Carefully released the distal extent of the?transverse carpal ligament to the palmar fat.? Care was to protect the recurrent branch and not injured this during this part of the case.? Next I then placed a Harvey underneath the?transverse carpal ligament proximally to protect the nerve in the carpal tunnel contents.? And then I subsequently under loupe magnification utilize my dissection scissors to release the?transverse carpal ligament into the antebrachial fascia under direct visualization with care to keep my scissors with a curved ulnarly away from the palmar cutaneous branch.? The?transverse carpal was then completely decompressed proximally and a Harvey was then placed both distally and proximally throughout the carpal tunnel and had complete decompression of the nerve.? The nerve did appear to have hourglass shape as it went through the carpal tunnel.? With significant irritation noted around the nerve.? No masses were noted within the contents of the carpal tunnel.? This completed the carpal tunnel release and then I subsequently irrigated the wound bed and placed a wet Ray-Kathrine into the incision for later closure. Standard curvilinear incision was made centering over the ulnar nerve between the medial epicondyle and olecranon process.? Sharp scalpel excision through skin and subcutaneous tissue was performed.? Once I encountered subcutaneous tissue I then utilized dissection scissors to spread in the path of the [facility] and care was made to protect any nerve branches throughout this case.? I then utilized a scalpel to complete my dissection directly on over to the flexor pronator mass and elevated this fat tissue directly off of the fascia.? I started my dissection of the ulnar nerve the nerve proximally.? Once identified I then utilized Littler dissection scissors and decompress the nerve completely and proximally and utilized blunt dissection to make sure there was no entrapment proximally. Once decompressed proximally I then traced the nerve distal through Monteiro's ligament and as it entered the FCU fascia aponeurosis and completed by decompression and ulnar nerve neurolysis distally.? The nerve was completely released in situ no areas of entrapment I was able to place my finger distally and proximally with no areas entrapment along the nerve.? At this point in time by in situ release was completed I then subsequently took the elbow through range of motion and subluxation was noted over the medial epicondyle and plan for ulnar nerve?transposition?was made.? ?I thoroughly irrigated the nerve throughout the case to prevent it from drying out. Of note the ulnar nerve had significant irritation and inflammation.? Next while protecting the nerve as well as care to not injure any venous structures I then excised the intermuscular septum proximally with bipolar electrocautery.? This allowed for there to be no entrapment proximally with my?transposition.? Next I then performed my standard Z- flap into the fascia.? This created a large thick fascial band that would be sutured to secure the ulnar nerve when its been?transposed.? Once the incision was made just through the fascia I then mobilized just the fascia and freed the muscle belly off of this.? I then sequentially excised the T and Y shaped fascial bands throughout the flexor pronator mass to prevent any type of banded structure irritating the?transposition from underneath.? At this point I had only soft tissue and muscle belly with which the ulnar nerve could rest.? I had to do a small excision of the muscle belly distally to create a nice trough for the nerve to lie.? At this point I then mobilized the nerve and this was?transposed into the flexor pronator insertion under the fasica flaps.? There was no evidence of kinking/tethering of the nerve.? this was significantly redundant and lax with no signs of tension or entrapment.? I then utilized a 2-0 Ethibond suture and approximated the fascia flaps that was created a nice sling, secured with horizontal interrupted mattress stitches.? I was able to place 2 fingers under the repair with no evidence of entrapment and the elbow was taken through range of motion and no areas of entrapment or kinking were noted on the nerve and the nerve was redundant relaxed in all ranges of motion.? This completed my ulnar nerve decompression of the?cubital tunnel as well as ulnar nerve?transposition.? Wound bed was then thoroughly irrigated.? Tourniquet was deflated.? Maintained exact hemostasis with bipolar electrocautery.? I did place a chandana drain to prevent hematoma formation. As result the skin was reapproximated with interrupted Vicryl subcutaneous suture 3-0.? I next utilized a running horizontal mattress stitch with 3-0 nylon.? Extremity was then cleaned and the incision was then covered with Xeroform 4 x 4's ABD Curlex and soft roll and a?cubital splint was then applied with an Ashish wrap.? Patient was then awakened from anesthesia and taken to PACU in stable condition. Disposition: Patient taken to PACU in stable condition.? Patient given appropriate discharge instructions as well as pain medication.? We will get Patient in with OT hand therapy for splint takedown dressing change and drain pull. Patient will see me in office in 2 weeks.? pt understands? if they has any questions they can contact the office.
--- NOTE | 2025-05-22 11:57 | P.BOP_ITS ---
Date of Procedure: [May 22, 2020 [place]] Surgeon: [Dr. Gardner DO] Patient Service Representative(s): [Fermin Gardner PA-C] Procedure(s) performed: [Left carpal tunnel release Left cubital tunnel release Ulnar nerve transposition] Findings of the procedure(s): [Left carpal tunnel syndrome and left cubital tunnel syndrome with ulnar nerve transposition with range of motion elbow so ulnar nerve transposition performed. Procedure went well and explained] Estimated blood loss: [10 mL] Specimen(s) removed: [N/A] Post-operative diagnosis: [Left carpal tunnel syndrome and left cubital tunnel syndrome with ulnar nerve subluxation w/ ROM]
--- NOTE | 2025-05-22 11:59 | PM.PACU ---
PACU note Narrative: Patient is a 54-year-old female just underwent a left carpal tunnel release and left cubital tunnel release. Patient transferred to PACU in stable condition. Pain is well controlled. Dressing on hand is dry and in place. Patient is in a elbow splint. Patient's fingers are warm and well-perfused. Patient can wiggle fingers. normal cap refill under 2 seconds. Patient has normal elbow range of motion. Sensation to finger intact. Exam: awake Disposition: discharged
[2025-05-22] MEDS: HYDROcodone-acetaminophen 5-325 mg Tablet 1 TAB PO (13:18)
--- NOTE | 2025-05-22 13:50 | ANE.PACU2 ---
Inpatient post-anesthesia follow up: Airway intact: Yes Vital signs: Temperature 97.2 F Pulse Rate 56 Respiratory Rate 18 Blood Pressure 103/72 Pulse Oximetry 98 Oxygen Delivery Me thod Room Air Oxygen Flow Rate Fraction of Inspir ed Oxygen Hydration adequate: Yes Nausea and vomiting: No Pain level: 1 Mental status: Baseline
== END 2025-05-22 13:50 | disposition home or self-care (01) ==
PROVIDERS: PCP Family Medicine; Visit Provider Student in an Organized Health Care Education/Training Program
PROC: (CPT 64721; principal; 2025-05-22 10:15)
PROC: (CPT 64718; 2025-05-22 10:15)
PROC: (CPT 64718; 2025-05-22 10:15)
DX: G56.02 Carpal tunnel syndrome, left upper limb (principal); G56.22 Lesion of ulnar nerve, left upper limb; Z79.82 Long term (current) use of aspirin; G47.33 Obstructive sleep apnea (adult) (pediatric); K21.9 Gastro-esophageal reflux disease without esophagitis; E66.9 Obesity, unspecified; Z68.31 Body mass index [BMI] 31.0-31.9, adult; F41.8 Other specified anxiety disorders; M06.842 Other specified rheumatoid arthritis, left hand; M06.841 Other specified rheumatoid arthritis, right hand; M79.7 Fibromyalgia; F17.200 Nicotine dependence, unspecified, uncomplicated
CPT/HCPCS: 64718; 64721; J0131; J1885; J2250; J2704; J2795; J3010; J3490; J7030; J9999

== ENCOUNTER → 2025-06-04 10:37 | Outpatient (BNVA) | payer MEDICAID, SELFPAY | PROVIDERS: PCP Family Medicine; Visit Provider Physician Assistant | DX: Z98.890 Other specified postprocedural states (principal) | CPT/HCPCS: 99213 ==

== ENCOUNTER → 2025-06-26 14:11 | Outpatient (BNVA) | payer MEDICAID, SELFPAY | PROVIDERS: PCP Family Medicine; Visit Provider Family Medicine | DX: R39.9 Unspecified symptoms and signs involving the genitourinary system (principal) | CPT/HCPCS: 81000 ==

== ENCOUNTER 2025-07-01 07:01 | Outpatient (CLI) | payer MEDICAID, SELFPAY ==
--- NOTE | 2025-07-01 07:00 | CT_ITS ---
WS: [id number] CT HEAD NONCONTRAST HISTORY: syncope with CVA like Sx TECHNIQUE: Contiguous axial imaging performed through the brain. Bone and soft tissue windows. All CT scans at [facility] use at least one of these dose optimization techniques: automated exposure control; mA and/or kV adjustment per patient size (includes targeted exams where dose is matched to clinical indication); or iterative reconstruction. DLP: 1179.98 mGy.cm COMPARISON: 05/01/2017, 08/04/2022 No acute intracranial hemorrhage, midline shift or mass effect. No atrophy or prior infarcts or herniation. No interval infarct since 2021. Ventricles: Normal size with no hydrocephalus. Extra-axial calcified mass adjacent to the RIGHT sylvian fissure measures 9 mm and is stable. Paranasal sinuses: As visualized are clear. Mastoid air cells: Well pneumatized. Calvarium and scalp: Skull is intact with no soft tissue edema or swelling. CT/CT head wo con* [id number] IMPRESSION: 1. No acute intracranial hemorrhage or edema. 2. No significant small vessel disease and no prior infarct. 3. Stable extra-axial calcified 9 mm mass consistent with a meningioma.
== END 2025-07-01 07:02 | disposition home or self-care (01) ==
PROVIDERS: PCP Family Medicine; Visit Provider Family Medicine
DX: R55 Syncope and collapse (principal); R93.89 Abnormal findings on diagnostic imaging of other specified body structures
CPT/HCPCS: 70450

== ENCOUNTER → 2025-07-16 10:46 | Outpatient (BNVA) | payer MEDICAID, SELFPAY | PROVIDERS: PCP Family Medicine; Visit Provider Physician Assistant | DX: Z47.89 Encounter for other orthopedic aftercare (principal); Z98.890 Other specified postprocedural states | CPT/HCPCS: 99024 ==

== ENCOUNTER → 2025-08-10 12:10 | Outpatient (BNVA) | payer MEDICAID, SELFPAY | PROVIDERS: PCP Family Medicine; Visit Provider Emergency Medicine | DX: R39.9 Unspecified symptoms and signs involving the genitourinary system (principal) | CPT/HCPCS: 87086 ==

== ENCOUNTER → 2025-08-18 14:07 | Outpatient (BNVA) | payer MEDICAID, SELFPAY | PROVIDERS: PCP Family Medicine; Visit Provider Family Medicine | DX: G62.9 Polyneuropathy, unspecified (principal); R39.9 Unspecified symptoms and signs involving the genitourinary system | CPT/HCPCS: 80048; 81000; 83036 ==

== ENCOUNTER → 2025-08-26 11:25 | Outpatient (BNVA) | payer MEDICAID, SELFPAY | PROVIDERS: PCP Family Medicine | DX: J02.9 Acute pharyngitis, unspecified (principal); R39.9 Unspecified symptoms and signs involving the genitourinary system | CPT/HCPCS: 81000; 87086; 87880 ==

== ENCOUNTER → 2025-09-01 10:20 | Outpatient (BNVA) | payer MEDICAID, SELFPAY | PROVIDERS: PCP Family Medicine; Visit Provider Internal Medicine Rheumatology | DX: M06.041 Rheumatoid arthritis without rheumatoid factor, right hand (principal); M06.042 Rheumatoid arthritis without rheumatoid factor, left hand; Z79.899 Other long term (current) drug therapy; M79.7 Fibromyalgia; M47.816 Spondylosis without myelopathy or radiculopathy, lumbar region | CPT/HCPCS: 36415; 80076; 82306; 85025; 86480; 86704; 86803; 87340; 99214 ==

== ENCOUNTER → 2025-09-16 10:14 | Outpatient (BNVA) | payer MEDICAID, SELFPAY | PROVIDERS: PCP Family Medicine; Visit Provider Family Medicine Adult Medicine | DX: J02.8 Acute pharyngitis due to other specified organisms (principal); B97.89 Other viral agents as the cause of diseases classified elsewhere; R39.9 Unspecified symptoms and signs involving the genitourinary system | CPT/HCPCS: 81000; 87071; 87880 ==